=== PATIENT | male | born 1940 | race Asian ===

== ENCOUNTER 2016-12-24 12:00 | Outpatient (CLI) ==
[2016-12-24 13:24] LABS: CHOL/HDL RATIO 2.6 (4.5-6.4)
== END 2016-12-24 12:01 | disposition home or self-care (01) ==
LOC: LAB 12:00
PROVIDERS: ATTEND Nurse Practitioner Family
DX: E11.9 Type 2 diabetes mellitus without complications (principal); E75.6 Lipid storage disorder, unspecified; Z79.899 Other long term (current) drug therapy
CPT/HCPCS: 36415; 80061

== ENCOUNTER 2017-05-09 20:15 | Outpatient (CLI) ==
[2017-05-09 20:39] LABS: BASOPHILS % (AUTO) 0.4 % (0.0-3.0); EOSINOPHILS # (AUTO) 0.1 K/ul (0.0-0.7); EOSINOPHILS % (AUTO) 0.6 % (0.0-7.0); HEMATOCRIT 43.9 % (42.0-52.0); HEMOGLOBIN 15.3 g/dl (14.0-18.0); IMMATURE GRANULOCYTE % (AUTO) 0.5 % (0.0-5.0); LYMPHOCYTES # (AUTO) 1.2 K/uL (0.60-3.4); LYMPHOCYTES % (AUTO) 11.5 (10.0-50.0); MEAN CORPUSCULAR HEMOGLOBIN 30.1 pg (27.0-31.0); MEAN CORPUSCULAR HGB CONC 34.9 (31.8-35.4); MEAN CORPUSCULAR VOLUME 86.4 fl (80.0-94.0); MONOCYTES # (AUTO) 0.6 K/uL (0.4-2.0); MONOCYTES % (AUTO) 5.7 (0-10); NEUTROPHILS # (AUTO) 8.3 K/ul (2.0-6.9); NEUTROPHILS % (AUTO) 81.3; PLATELET COUNT 180 10^3/uL (140-440); RED BLOOD COUNT 5.08 10^6/ul (4.70-6.10); WHITE BLOOD COUNT 10.18 K/ul (4.2-10.2)
[2017-05-09 20:44] LABS: ADD URINE MICROSCOPIC YES; BILIRUBIN,URINE Negative (NEGATIVE); KETONES,URINE Negative (NEGATIVE); LEUKOCYTE ESTERASE ,URINE Negative (NEGATIVE); NITRITE,URINE Negative (NEGATIVE); PH,URINE 7.5 (5-9); PROTEIN,URINE Negative (NEGATIVE); URINE, BLOOD Trace-intact (NEGATIVE)
[2017-05-09 20:55] LABS: ALBUMIN/GLOBULIN RATIO 1.29; ANION GAP 16.2; BILIRUBIN,TOTAL 0.76 mg/dL (0.00-1.20); BUN/CREATININE RATIO 13.63; CALCIUM 8.8 mg/dL (8.2-10.2); CREATININE 1.1 mg/dL (0.60-1.10); POTASSIUM 4.2 mmol/L (3.5-5.1); TOTAL PROTEIN 7.1 g/dL (5.8-8.1)
--- NOTE | 2017-05-09 20:59 | CT ---
EXAM: CT chest without contrast TECHNIQUE: Helical axial CT of the chest was performed without contrast with coronal and sagittal re constructions. COMPARISON: Chest CT from 09/12/2016 HISTORY: Cough and weakness and fatigue FINDINGS: Lung parenchyma: There is increased bibasilar atelectasis compared to previous examination. There is no effusion or infiltrate or failure or nodule or mass. Mediastinum: No pathologic hilar or mediastinal adenopathy. There is fairly advanced coronary calcif ication. There is no pericardial effusion. There is a moderate degree of calcific atherosclerosis of the aorta. There is no aortic aneurysm. Upper Abdomen: There is a gallstone in the neck of the gallbladder with some probable sludge within the gallbladder which does not appear to be inflamed. Osseous structures: Nothing acute. Surrounding soft tissues are normal. No supraclavicular or axillary adenopathy. IMPRESSION: 1. There is increased bibasilar atelectasis compared to prior. 2. Advanced calcific atherosclerosis as above. 3. Gallstone in the neck of the gallbladder with some probable sludge. If clinically indicated ult rasound would be helpful to better characterize this.
== END 2017-05-09 20:16 | disposition home or self-care (01) ==
LOC: LAB 20:15
PROVIDERS: ATTEND Internal Medicine
DX: R05 Cough (principal); R50.9 Fever, unspecified; R53.1 Weakness; R53.83 Other fatigue; R00.0 Tachycardia, unspecified
CPT/HCPCS: 36415; 80053; 81001; 84145; 85025; 87040; 87086; 93005; 93010

== ENCOUNTER 2017-05-11 15:40 | Inpatient (IN) ==
[2017-05-11] MEDS ORDERED: NITROSTAT SL PRN (15:50)
[2017-05-11] MEDS ORDERED: MORPHINE 4 MG/ML SYRINGE IVP PRN (15:50)
[2017-05-11] MEDS ORDERED: ATROPINE SULFATE PFS IVP PRN (15:50)
[2017-05-11] MEDS ORDERED: VISTARIL INJ IM PRN (15:50)
[2017-05-11] MEDS ORDERED: TYLENOL PO PRN (15:50)
[2017-05-11 16:10] LABS: ABG PCO2 33.5 mmHg (35-45); ABG PH 7.396 (7.35-7.45)
[2017-05-11 16:11] LABS: ABG BASE EXCESS -4 (-2.0-2.0); ABG HCO3 20.5 (22.0-26.0); ABG TCO2 22 (22.0-28.0)
[2017-05-11 16:27] VITALS: BMI 27.7
[2017-05-11] MEDS: DEXTROSE 5%-1/2NS IV SOLUTION 1,000 ML IV SCH (16:29)
[2017-05-11] MEDS: SOLU-CORTEF 250 MG IVP SCH ×2 (16:30→21:03)
[2017-05-11 16:57] LABS: HEMATOCRIT 40.7 % (42.0-52.0); MEAN CORPUSCULAR HEMOGLOBIN 29.9 pg (27.0-31.0); MEAN CORPUSCULAR HGB CONC 34.4 (31.8-35.4); MEAN CORPUSCULAR VOLUME 86.8 fl (80.0-94.0); PLATELET COUNT 132 10^3/uL (140-440); RED BLOOD COUNT 4.69 10^6/ul (4.70-6.10); WHITE BLOOD COUNT 11.36 K/ul (4.2-10.2)
[2017-05-11] MEDS: ZITHROMAX 500 MG in SODIUM CHLORIDE 250 ML IV SCH (17:01)
[2017-05-11 17:02] LABS: ANISOCYTOSIS NOT PRESENT (NOT PRESENT)
[2017-05-11] MEDS: XOPENEX 1.25 MG NEB SCH ×2 (17:07→23:30)
[2017-05-11] MEDS: PULMICORT 0.5 MG/2 ML NEB SCH (17:12)
--- NOTE | 2017-05-11 17:30 | DI ---
EXAM: Two-view chest. HISTORY: Cough and weakness. COMPARISON: 09/14/2012. CT dated 05/09/2017. FINDINGS: PA and lateral views of the chest. The lungs are hyperexpanded. There is no lobar con solidation or effusion. The heart size and pulmonary vasculature are within normal limits. There a re no suspicious pulmonary nodules. The pulmonary interstitium is normal. The aorta is tortuous and calcified. The osseous structures show mild degenerative changes consistent with age. IMPRESSION: No acute pulmonary disease. Mild hyperexpansion of the chest consistent with chronic obstructive pulmonary disease.
[2017-05-11 17:31] LABS: ALBUMIN 3.5 g/dL (3.4-5.0); ALBUMIN/GLOBULIN RATIO 0.97; ANION GAP 16.9; BILIRUBIN,TOTAL 1.6 mg/dL (0.00-1.20); BUN/CREATININE RATIO 12.19; CREATININE 1.23 mg/dL (0.60-1.10); POTASSIUM 3.9 mmol/L (3.5-5.1); TOTAL PROTEIN 7.1 g/dL (5.8-8.1); TROPONIN I 0.017 ng/ml (0.0000-0.4000)
[2017-05-11] MEDS: TUSSIONEX PO SCH ×3 (17:44→21:10)
[2017-05-11 17:51] LABS: CREATINE KINASE MB 1.4 ng/ml (0.0-3.6)
[2017-05-11 18:58] LABS: BILIRUBIN,URINE Negative (NEGATIVE); KETONES,URINE 3+ (NEGATIVE); LEUKOCYTE ESTERASE ,URINE Negative (NEGATIVE); NITRITE,URINE Negative (NEGATIVE); PROTEIN,URINE 1+ (NEGATIVE); URINE, BLOOD 1+ (NEGATIVE)
[2017-05-11 19:05] LABS: ADD URINE MICROSCOPIC YES
[2017-05-11] MEDS: DOXY-100 100 MG in SODIUM CHLORIDE 250 ML IV SCH (19:23)
[2017-05-11] MEDS ORDERED: GLUCOPHAGE ONE (20:59)
[2017-05-11] MEDS ORDERED: EMPAGLIFLOZIN PO SCH (21:00)
[2017-05-11] MEDS ORDERED: GLUCOPHAGE PO SCH (21:00)
[2017-05-11] MEDS ORDERED: METFORMIN HCL PO SCH (21:00)
[2017-05-11] MEDS ORDERED: [UNRECOGNIZED DRUG - OTHER] PO SCH (21:00)
[2017-05-11] MEDS: AMBIEN PO SCH (21:08)
[2017-05-11] MEDS: TAMIFLU PO SCH (21:08)
[2017-05-11] MEDS: HUMULIN R SUBCUT PRN (21:08)
[2017-05-12 01:17] LABS: CREATINE KINASE 214 U/L; MYOGLOBIN 110 ng/ml
[2017-05-12 01:30] LABS: CREATINE KINASE MB 1.4 ng/ml (0.0-3.6)
[2017-05-12] MEDS: XOPENEX 1.25 MG NEB SCH ×4 (05:30→23:19)
[2017-05-12] MEDS: PULMICORT 0.5 MG/2 ML NEB SCH ×2 (05:30→18:11)
[2017-05-12] MEDS: DEXTROSE 5%-1/2NS IV SOLUTION 1,000 ML IV SCH ×2 (05:43→08:49)
[2017-05-12] MEDS: SOLU-CORTEF 250 MG IVP SCH ×3 (05:43→20:31)
[2017-05-12] MEDS: HUMULIN R SUBCUT PRN ×4 (06:44→20:54)
[2017-05-12] MEDS ORDERED: GLUCOPHAGE PO SCH (08:00)
[2017-05-12] MEDS: TAMIFLU PO SCH ×2 (08:18→20:28)
[2017-05-12] MEDS: DOXY-100 100 MG in SODIUM CHLORIDE 250 ML IV SCH ×3 (08:18→20:31)
[2017-05-12] MEDS: ASPIRIN EC PO SCH (08:18)
[2017-05-12] MEDS: METFORMIN HCL PO SCH ×3 (08:19→20:29)
[2017-05-12] MEDS: TUSSIONEX PO SCH ×3 (08:19→20:30)
[2017-05-12] MEDS: EMPAGLIFLOZIN PO SCH ×3 (08:19→20:29)
[2017-05-12] MEDS: [UNRECOGNIZED DRUG - OTHER] PO SCH ×3 (08:19→20:29)
[2017-05-12] MEDS ORDERED: DEXTROSE 5%-1/2NS IV SOLUTION 1,000 ML IV SCH (08:29)
[2017-05-12 09:21] LABS: BASOPHILS % (AUTO) 0.2 % (0.0-3.0); HEMATOCRIT 38.7 % (42.0-52.0); HEMOGLOBIN 13.1 g/dl (14.0-18.0); IMMATURE GRANULOCYTE % (AUTO) 0.5 % (0.0-5.0); LYMPHOCYTES # (AUTO) 0.4 K/uL (0.60-3.4); LYMPHOCYTES % (AUTO) 3.6 (10.0-50.0); MEAN CORPUSCULAR HEMOGLOBIN 29.8 pg (27.0-31.0); MEAN CORPUSCULAR HGB CONC 33.9 (31.8-35.4); MONOCYTES # (AUTO) 0.2 K/uL (0.4-2.0); MONOCYTES % (AUTO) 2.5 (0-10); NEUTROPHILS % (AUTO) 93.2; PLATELET COUNT 129 10^3/uL (140-440); WHITE BLOOD COUNT 9.63 K/ul (4.2-10.2)
[2017-05-12 09:55] LABS: ALBUMIN/GLOBULIN RATIO 0.86; ANION GAP 18.3; BILIRUBIN,TOTAL 1.07 mg/dL (0.00-1.20); BUN/CREATININE RATIO 15.2; CALCIUM 8.6 mg/dL (8.2-10.2); CREATININE 1.25 mg/dL (0.60-1.10); POTASSIUM 4.3 mmol/L (3.5-5.1); TOTAL PROTEIN 6.5 g/dL (5.8-8.1)
[2017-05-12] MEDS: ZITHROMAX 500 MG in SODIUM CHLORIDE 250 ML IV SCH (10:10)
--- NOTE | 2017-05-12 10:10 | HP ---
DATE OF SERVICE: 05/11/17 HISTORY OF PRESENT ILLNESS: This is a 77-year-old [place] Citizen male, seen in the office with complaint of having cough, which was productive of yellowish mucus for the past three days. The patient did not have any feeling of having fever or chills but was feeling chilly with weakness and fatigue. The patient had several tests done on like CT scan of chest which showed bibasilar atelectasis, advanced calcific atherosclerosis, possibility of gallstone or sludge in the neck of the gallbladder. The patient's main problem at the time was cough with mild shortness of breath. The patient on that day had CBC with differential done which showed hemoglobin of 15 with hematocrit 43, WBC was 10,000. The patient's creatinine was 1.1 with BUN 15. UA was practically negative except for 2+ glucose. Blood glucose at that time was reported as 173. The patient's condition from 05/09/17 continued to worsen to some extent. The patient has history of similar type of upper respiratory and lower respiratory tract symptoms several years ago. REVIEW OF SYSTEMS: CONSTITUTIONAL: Fatigue, weakness. No night sweats. No fever or chills. HEENT: Eyes: No visual changes. No eye pain. No eye discharge. ENT: Nasal congestion. No epistaxis. No sinus pain. No sore throat. No odynophagia. No ear pain. No congestion. RESPIRATORY: Cough, congestion with yellowish mucus production. Shortness of breath with exertion. No hemoptysis. CARDIOVASCULAR: Chest pain with cough-like tightness type of feeling. No angina symptoms. No CHF symptoms. No palpitations. No PND, no orthopnea. GASTROINTESTINAL: Appetite has not been good for past 24 hours. No abdominal pain. No nausea or vomiting. No diarrhea or constipation. No hematemesis. No hematochezia. GENITOURINARY: No urgency. No frequency. No dysuria. No hematuria. No obstructive symptoms. No discharge. No pain. No significant abnormal bleeding. MUSCULOSKELETAL: Generalized aches with weakness. NEUROLOGICAL: No headache. No neck pain. No syncope. No seizures. No dizziness. PSYCHIATRIC: Not anxious. No depression. No suicidal thoughts. No homicidal thoughts. SKIN: No rash. No lesions. No wounds. ENDOCRINE: No unexplained weight loss. No weight gain. HEMATOLOGIC/LYMPHATIC: No anemia. No purpura. No petechiae. No prolonged or excessive bleeding. No palpable lymph nodes. PERSONAL/FAMILY/SOCIAL HISTORY: The patient is , lives with the . Nonsmoker. No alcohol abuse. 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 Family history: Father had a brain tumor. PAST MEDICAL/SURGICAL PROBLEMS: 1. Diabetes mellitus Type 2 2. Dyslipidemia 3. Colonoscopy, 2013, Dr. Torres MEDICATIONS: (HOME) 1. Metformin and Jardiance combination 12 and 500 mg twice a day. ALLERGIES: NKDA PHYSICAL EXAMINATION: GENERAL: The patient is oriented to time, place and person. VITAL SIGNS: Temperature 98.6, pulse 110 per min, respiratory rate 20 per minute , BP 130/70. Height 5'6". Weight 171 lb, 15.369 oz. BMI 27. HEENT: Head normocephalic, atraumatic. Eyes: Extraocular muscles are intact. Pupils are equal, round and reactive to light and accommodation. Ears: No lesions. Nose appeared normal. Throat: No exudate or erythema. Skin dry. Mucous membranes dry. Pallor positive. NECK: Supple. No JVP, no carotid bruit. No lymphadenopathy or thyromegaly. LUNGS: Decreased breath sounds with few faint wheezes with dry crepitations, both lower lobes with diminished air entry. Percussion note normal. Chest symmetrical. HEART: S1, S2, no S3. Tachycardia, murmur. No cyanosis or clubbing. No ascites. Pulses: Dorsalis pedis and posterior tibial pulses +1 to +2 bilaterally. ABDOMEN: Soft. Nontender. Bowel sounds active. No CVA tenderness. No mass felt. EXTREMITIES: No pedal edema. Full range of motion of all extremities, equal. NEUROLOGIC: No focal deficit. Cranial nerves II through XII are grossly intact. No headache, no double vision or headache. SKIN: Not dry. Intact. Turgor - normal. LYMPHATIC: No palpable lymph nodes/no lymphedema. MUSCULOSKELETAL: Normal joints with no swelling. Muscle tone is normal. LABS/RADIOLOGY/ BLOOD GASES 05/11/17 ABG p02 51, pc02 33, pH 7.39 with 86% saturation on room air. Hemoglobin 14, hematocrit 40, WBC 11,300, normal differential, platelets slightly lower 132,000. Chest x-ray - COPD. Cardiac markers negative. Blood cultures after two days negative. Creatinine 1.2, BUN 15, total bilirubin 1.6, SGOT 52, D. dimer 648, procalcitonin 1.1 (normal is 0.5). Sputum cultures normal celina. ASSESSMENT: 1. ACUTE PNEUMONITIS, BILATERAL 2. RHINITIS/LARYNGITIS 3. HISTORY OF DIABETES MELLITUS 4. DYSLIPIDEMIA PLAN: 1. Admit Regular to [facility]. 2. Routine telemetry orders, which will include serial cardiac markers. 3. CBC with CMP with chest x-ray and EKG. EKG shows sinus tachycardia with low voltage indicating chronic lung disease. 4. IV Doxycycline 100 mg q.a.m. 5. Zithromax 500 mg q.a.m. for 3 days. 6. Sputum for culture and sensitivity and gram stain. 7. Blood cultures times two. 8. Xopenex q.i.d. daily. 9. Pulmicort twice a day. 10. Solu-Cortef 125 mg q.8hr. 11. ABG. 12. The patient is on IV fluids, 1000 cc D5 1/2 NS q.8hr. 13. T4, TSH. 14. Accu-Cheks with coverage. 15. Ehrlichia/Lyme screening. 16. Tussionex one teaspoon p.o. b.i.d. for cough. 17. [place] Spotted Fever IgM 18. Mycoplasma/Chlamydia titers/Rickettsia titer 19. Influenza A/B test. Note: The patient's oximetry in the office was 90%. The patient's ABG in the hospital showed acute respiratory failure with p02 of 51, pc02 of 32 with normal pH and 86% oxygen saturation when it was done in the patient's room. CONDITION: Stable TIME SPENT: More than 70 minutes. MTDD
[2017-05-12] MEDS ORDERED: TUSSIONEX PO SCH (13:00)
[2017-05-12] MEDS ORDERED: POTASSIUM CHLORIDE 20 MEQ VIAL-ADDITIVE ONLY IV ONE ×2 (18:37→18:40)
[2017-05-12] MEDS: POTASSIUM CHLORIDE 10 MEQ VIAL-ADDITIVE ONLY 20 MEQ in SODIUM CHLORIDE 1,000 ML IV SCH (18:47)
[2017-05-12] MEDS: AMBIEN PO SCH (20:27)
[2017-05-12] MEDS: ZINC-220 PO SCH (20:28)
[2017-05-13] MEDS: XOPENEX 1.25 MG NEB SCH ×4 (05:38→23:24)
[2017-05-13] MEDS: PULMICORT 0.5 MG/2 ML NEB SCH ×2 (05:38→18:04)
[2017-05-13] MEDS: SOLU-CORTEF 250 MG IVP SCH ×3 (05:49→20:08)
[2017-05-13] MEDS: HUMULIN R SUBCUT PRN ×4 (05:51→20:08)
[2017-05-13 07:18] LABS: BASOPHILS % (AUTO) 0.1 % (0.0-3.0); HEMATOCRIT 36.3 % (42.0-52.0); HEMOGLOBIN 12.3 g/dl (14.0-18.0); IMMATURE GRANULOCYTE % (AUTO) 0.9 % (0.0-5.0); LYMPHOCYTES # (AUTO) 0.7 K/uL (0.60-3.4); LYMPHOCYTES % (AUTO) 7.1 (10.0-50.0); MEAN CORPUSCULAR HEMOGLOBIN 30.1 pg (27.0-31.0); MEAN CORPUSCULAR HGB CONC 33.9 (31.8-35.4); MEAN CORPUSCULAR VOLUME 88.8 fl (80.0-94.0); MONOCYTES # (AUTO) 0.3 K/uL (0.4-2.0); MONOCYTES % (AUTO) 3.5 (0-10); NEUTROPHILS # (AUTO) 8.3 K/ul (2.0-6.9); NEUTROPHILS % (AUTO) 88.4; PLATELET COUNT 144 10^3/uL (140-440); RED BLOOD COUNT 4.09 10^6/ul (4.70-6.10); WHITE BLOOD COUNT 9.38 K/ul (4.2-10.2)
[2017-05-13] MEDS ORDERED: POTASSIUM CHLORIDE 20 MEQ VIAL-ADDITIVE ONLY 20 MEQ in SODIUM CHLORIDE 1,000 ML IV SCH (07:30)
[2017-05-13 07:38] LABS: ALBUMIN/GLOBULIN RATIO 0.97; ANION GAP 14.2; BILIRUBIN,TOTAL 0.69 mg/dL (0.00-1.20); BUN/CREATININE RATIO 22.22; CALCIUM 8.4 mg/dL (8.2-10.2); CREATININE 1.17 mg/dL (0.60-1.10); POTASSIUM 4.2 mmol/L (3.5-5.1); TOTAL PROTEIN 6.1 g/dL (5.8-8.1)
[2017-05-13] MEDS: POTASSIUM CHLORIDE 10 MEQ VIAL-ADDITIVE ONLY 20 MEQ in SODIUM CHLORIDE 1,000 ML IV SCH (07:51)
[2017-05-13] MEDS: [UNRECOGNIZED DRUG - OTHER] PO SCH ×2 (08:53→20:22)
[2017-05-13] MEDS: TUSSIONEX PO SCH ×2 (08:53→20:08)
[2017-05-13] MEDS: TAMIFLU PO SCH ×2 (08:53→20:22)
[2017-05-13] MEDS: EMPAGLIFLOZIN PO SCH ×2 (08:53→20:22)
[2017-05-13] MEDS: ZINC-220 PO SCH ×2 (08:53→20:07)
[2017-05-13] MEDS: METFORMIN HCL PO SCH ×2 (08:53→20:22)
[2017-05-13] MEDS: ASPIRIN EC PO SCH (08:53)
--- NOTE | 2017-05-13 09:11 | PN ---
DATE OF SERVICE: 05/12/17 SUBJECTIVE: The patient is a 77 year old [place] male hospitalized with bilateral acute pneumonitis. The patient says that he is feeling better, still coughing. The appetite has improved. REVIEW OF SYSTEMS: CONSTITUTIONAL: No night sweats. No malaise, lethargy. No fever or chills. Fatigue and weakness. HEENT: Eyes: No visual changes. No eye pain. No eye discharge. ENT: No runny nose. No epistaxis. No sinus pain. No sore throat. No odynophagia. No congestion. RESPIRATORY: Cough mostly dry, no congestion. No hemoptysis. No shortness of breath. CARDIOVASCULAR: No angina symptoms. No CHF symptoms. No atypical chest pain for CAD. No palpitations. No orthopnea. No PND. GASTROINTESTINAL: No abdominal pain. No nausea or vomiting. No diarrhea or constipation. No hematemesis. No hematochezia. Appetite has improved. GENITOURINARY: No urgency. No frequency. No dysuria. No hematuria. No obstructive symptoms. No discharge. No pain. No significant abnormal bleeding. MUSCULOSKELETAL: No musculoskeletal pain; no joint swelling. NEUROLOGICAL: No headache. No neck pain. No syncope. No seizures. No dizziness. PSYCHIATRIC: Not anxious. No depression. No suicidal thoughts. No homicidal thoughts. SKIN: No rash. No lesions. No wounds. ENDOCRINE: No unexplained weight loss. No weight gain. HEMATOLOGIC/LYMPHATIC: No anemia. No purpura. No petechiae. No prolonged or excessive bleeding. No palpable lymph nodes. PHYSICAL EXAMINATION: GENERAL: The patient is oriented to time, place and person. VITAL SIGNS: Temperature 97, pulse 80, respiratory rate 17, blood pressure 109/ 60 and pulse ox 98% with 2 liters. HEENT: Head normocephalic, atraumatic. Eyes: Extraocular muscles are intact. Pupils are equal, round and reactive to light and accommodation. Ears: No lesions. Nose appeared normal. Throat: No exudate or erythema. NECK: Supple. No JVD, no carotid bruit. No lymphadenopathy or thyromegaly. LUNGS: Mild wheeze but good air entry better than yesterday. Percussion note normal. Chest symmetrical. HEART: S1, S2, no S3. No murmurs. No cyanosis or clubbing. No ascites. Pulses: Dorsalis pedis and posterior tibial pulses +1 to +2 both sides. ABDOMEN: Soft. Nontender. Bowel sounds active. No CVA tenderness. No mass felt. EXTREMITIES: No edema. Full range of motion of all extremities, equal. NEUROLOGIC: No focal deficit. Cranial nerves II through XII are grossly intact. No headache, no double vision or headache. SKIN: Not dry. Intact. Turgor - looks better. LYMPHATIC: No palpable lymph nodes/no lymphedema. MUSCULOSKELETAL: Normal joints with no swelling. Muscle tone is normal. LABS: hgb 14, hct 40, WBC 11,300 normal differential, creatinine 1.2, BUN 15, potassium 3.9, glucose 205. ASSESSMENT: 1. Acute pneumonitis with acute respiratory failure seems to be improving clinically 2. Chronic lung disease 3. Diabetes Mellitus PLAN: 1. Continue Doxycycline 2. Continue Zithromax 3. Continue Steroids 4. Continue NEBS treatment 5. Continue IV fluids at a slowly rate CONDITION: Improving TIME SPENT: More than 30 minutes. Plan and coordination of the patient's care discussed in the presence of nurse. KENNETH
--- NOTE | 2017-05-13 09:12 | PCM.PROG ---
Attending Provider: ATTENDING PROVIDER: Dr. PADMINI RODRIGUES DATE OF SERVICE: 05/13/17 SUBJECTIVE: This 77 year old M was hospitalized 05/11/17 admitted with bilateral pneumonitis. The patient's condition seems to have improved clinically. The patient is afebrile. He is still coughing with mucus but is clearing up. No PND, no orthopnea. Appetite improved. REVIEW OF SYSTEMS: CONSTITUTIONAL: No night sweats. No fatigue, malaise, lethargy. No fever or chills. HEENT: Eyes: No visual changes. No eye pain. No eye discharge. ENT: No runny nose. No epistaxis. No sinus pain. No odynophagia. No congestion. RESPIRATORY: Cough and congestion. No hemoptysis. No shortness of breath. CARDIOVASCULAR: No angina symptoms. No CHF symptoms. No atypical chest pain for CAD. No palpitations. No orthopnea.. GASTROINTESTINAL: Appetite is better. No abdominal pain. No nausea or vomiting. No diarrhea or constipation. No hematemesis. No hematochezia. GENITOURINARY: No urgency. No frequency. No dysuria. No hematuria. No obstructive symptoms. No discharge. No pain. No significant abnormal bleeding. MUSCULOSKELETAL: No musculoskeletal pain; no joint swelling. NEUROLOGICAL: Awake, alert, oriented to time, place and person. No headache. No neck pain. No syncope. No seizures. No dizziness. PSYCHIATRIC: Not anxious. No depression. No suicidal thoughts. No homicidal thoughts. SKIN: No rash. No lesions. No wounds. ENDOCRINE: No unexplained weight loss. No weight gain. HEMATOLOGIC/LYMPHATIC: No anemia. No purpura. No petechiae. No prolonged or excessive bleeding. No palpable lymph nodes. PHYSICAL EXAMINATION: GENERAL: The patient is awake, alert and oriented, sitting on side of bed in no distress. VITAL SIGNS: Temperature 97.0 F, Pulse 76, Respiratory Rate 20, BP 106/59, Pulse Ox 97% HEENT: Head normocephalic, atraumatic. Eyes: Extraocular muscles are intact. Pupils are equal, round and reactive to light and accommodation. Ears: No lesions. Nose appeared normal. Throat: No exudate or erythema. NECK: Supple. No JVD, no carotid bruit. No lymphadenopathy or thyromegaly. LUNGS: Mild wheeze but good air entry. Percussion note normal. Chest symmetrical. HEART: S1, S2, no S3. No murmurs. No cyanosis or clubbing. No ascites. Pulses: Dorsalis pedis and posterior tibial pulses +1 to +2 both sides. ABDOMEN: Soft. Non-tender. Bowel sounds active. No CVA tenderness. No mass felt. EXTREMITIES: No edema. Full range of motion of all extremities, equal. NEUROLOGIC: No focal deficit. Cranial nerves II through XII are grossly intact. No headache, no double vision or headache. SKIN: Not dry. Intact. Turgor-normal. LYMPHATIC: No palpable lymph nodes/no lymphedema. MUSCULOSKELETAL: Normal joints with no swelling. Muscle tone is normal. LAB REVIEW: 05/13/17 07:10 05/13/17 07:10 05/13/17 07:10: WBC 9.38, RBC 4.09 L, Hgb 12.3 L, Hct 36.3 L, MCV 88.8, MCH 30.1 , MCHC 33.9, RDW Coeff of Liza 12.5, Plt Count 144, Immature Gran % (Auto) 0.9, Neut % (Auto) 88.4, Lymph % (Auto) 7.1 L, [place] % (Auto) 3.5, Eos % (Auto) 0.0, Baso % (Auto) 0.1, Immature Gran # (Auto) 0.1, Neut # 8.3 H, Lymph # 0.7, [place] # 0.3 L, Eos # 0.0, Baso # 0.0, Sodium 139, Potassium 4.2, Chloride 105, Carbon Dioxide 24, Anion Gap 14.2, BUN 26 H, Creatinine 1.17 H, Estimated GFR (MDRD) 60.00, BUN/Creatinine Ratio 22.22, Glucose 173 H D, Hemoglobin A1c 7.1 H, Calcium 8.4, Total Bilirubin 0.69, AST 22, ALT 10 L, Alkaline Phosphatase 76, Total Protein 6.1, Albumin 3.0 L, Globulin 3.1, Albumin/Globulin Ratio 0.97 05/12/17 09:15: Procalcitonin 2.22 05/12/17 08:35: WBC 9.63, RBC 4.40 L, Hgb 13.1 L, Hct 38.7 L, MCV 88.0, MCH 29.8 , MCHC 33.9, RDW Coeff of Liza 12.2, Plt Count 129 L, Immature Gran % (Auto) 0.5 , Neut % (Auto) 93.2, Lymph % (Auto) 3.6 L, [place] % (Auto) 2.5, Eos % (Auto) 0.0 , Baso % (Auto) 0.2, Immature Gran # (Auto) 0.1, Neut # 9.0 H, Lymph # 0.4 L, [place] # 0.2 L, Eos # 0.0, Baso # 0.0, Sodium 139, Potassium 4.3, Chloride 102, Carbon Dioxide 23, Anion Gap 18.3, BUN 19 H, Creatinine 1.25 H, Estimated GFR ( MDRD) 56.00, BUN/Creatinine Ratio 15.20, Glucose 272 H D, Calcium 8.6, Total Bilirubin 1.07, AST 25 D, ALT 15, Alkaline Phosphatase 91, Total Protein 6.5, Albumin 3.0 L, Globulin 3.5, Albumin/Globulin Ratio 0.86 ASSESSMENT: 1. Acute pneumoniitis 2. Chronic lung disease 3. Diabetes mellitus Type 2 4. Chronic kidney disease PLAN: 1. Continue Solu-Cortef until tomorrow 2. IV antibiotics, steroids and nebs treatment 2. Will switch from Doxycycline to Rocephin 2 gm begin tomorrow one dose daily 3. Discontinue IV fluids - oral intake is normal 4. Procalcitonin borderline elevated for sepsis, will repeat again tomorrow Plan and coordination of the patient's care discussed in the presence of [employer] Supervisor and nurse. CONDITION: Stable SCRIBED BY: SLADE METCALF Blind Aide scribed while in presence of service performed by Dr. PADMINI RODRIGUES on 05/13/17 ([id number])
[2017-05-13] MEDS ORDERED: DOXY-100 100 MG in SODIUM CHLORIDE 250 ML IV SCH (09:30)
[2017-05-13] MEDS: DOXY-100 100 MG in SODIUM CHLORIDE 250 ML IV SCH (10:48)
[2017-05-13] MEDS: ZITHROMAX 500 MG in SODIUM CHLORIDE 250 ML IV SCH (10:51)
[2017-05-13] MEDS: ROCEPHIN 2 GM in SODIUM CHLORIDE 100 ML IV SCH (15:17)
[2017-05-13] MEDS: AMBIEN PO SCH (20:08)
[2017-05-13] MEDS: ZOSYN 3.375 GM 3.375 GM in SODIUM CHLORIDE 100 ML IV SCH (23:27)
[2017-05-13] MEDS ORDERED: SODIUM CHLORIDE 100 ML IV ONE (23:27)
[2017-05-14] MEDS: SOLU-CORTEF 250 MG IVP SCH ×4 (05:15→20:45)
[2017-05-14] MEDS: ZOSYN 3.375 GM 3.375 GM in SODIUM CHLORIDE 100 ML IV SCH ×4 (05:16→23:02)
[2017-05-14] MEDS: PULMICORT 0.5 MG/2 ML NEB SCH ×2 (05:23→17:03)
[2017-05-14] MEDS: XOPENEX 1.25 MG NEB SCH ×4 (05:24→23:04)
[2017-05-14 05:50] LABS: BASOPHILS % (AUTO) 0.1 % (0.0-3.0); HEMATOCRIT 35.8 % (42.0-52.0); HEMOGLOBIN 12.2 g/dl (14.0-18.0); IMMATURE GRANULOCYTE % (AUTO) 1.5 % (0.0-5.0); LYMPHOCYTES # (AUTO) 0.5 K/uL (0.60-3.4); LYMPHOCYTES % (AUTO) 5.8 (10.0-50.0); MEAN CORPUSCULAR HEMOGLOBIN 29.8 pg (27.0-31.0); MEAN CORPUSCULAR HGB CONC 34.1 (31.8-35.4); MEAN CORPUSCULAR VOLUME 87.3 fl (80.0-94.0); MONOCYTES # (AUTO) 0.4 K/uL (0.4-2.0); MONOCYTES % (AUTO) 4.6 (0-10); NEUTROPHILS # (AUTO) 7.2 K/ul (2.0-6.9); PLATELET COUNT 176 10^3/uL (140-440); WHITE BLOOD COUNT 8.13 K/ul (4.2-10.2)
[2017-05-14 06:19] LABS: ALBUMIN 3.1 g/dL (3.4-5.0); ALBUMIN/GLOBULIN RATIO 1.03; ANION GAP 17.6; BILIRUBIN,TOTAL 0.72 mg/dL (0.00-1.20); BUN/CREATININE RATIO 20.17; CALCIUM 8.5 mg/dL (8.2-10.2); CREATININE 1.14 mg/dL (0.60-1.10); POTASSIUM 3.6 mmol/L (3.5-5.1); TOTAL PROTEIN 6.1 g/dL (5.8-8.1)
[2017-05-14] MEDS: DEXTROSE 5%-1/2NS IV SOLUTION 1,000 ML IV SCH ×2 (09:17→17:43)
--- NOTE | 2017-05-14 10:53 | CT ---
EXAM: CT of the head with and without contrast History: Dizziness. Comparison: Head CT 09/14/2012, brain MRI 09/16 2016 Technique: Multiplanar CT images through the head were obtained with and without the administration of IV contrast Findings: The visualized paranasal sinuses and mastoid air cells are clear in general. No acute ca lvarial abnormalities. Intracranially the ventricular and cisternal spaces are normal in size, shape and configuration for a patient of this age. No dominant mass or midline shift. No hydrocephalous. No acute intracrania l hemorrhage or abnormal extraaxial fluid collections. No abnormal contrast enhancement. No change in the periventricular and subcortical white matter hypodensities. Impression: 1. No acute intracranial process. 2. No abnormal contrast enhancement. 3. Stable chronic small vessel ischemic disease.
--- NOTE | 2017-05-14 11:00 | CT ---
EXAM: CT chest with contrast HISTORY: Cough, congestion COMPARISON: None TECHNIQUE: CT chest performed with intravenous contrast. Coronal and sagittal reformatted images o btained. FINDINGS: Thyroid and thoracic inlet appear normal. Heart top normal in size. Coronary calcificat ions. Trace pericardial effusion. Aorta normal in caliber. Atherosclerosis. Small hiatal hernia. There is a stable liver cyst right lobe of liver. Gallstone in the gallbladder neck region and ad ditional gallstones and/or sludge. No mediastinal, hilar, or axillary lymphadenopathy. No pneumoth orax. New trace bilateral pleural effusions. New bibasilar atelectasis and/or infiltrate. Lower airway thickening. New bibasilar atelectasis and/or infiltrate. Mild emphysematous change. No acu te abnormalities of the bones. Diffuse idiopathic skeletal hyperostosis suggested with bridging syn desmophytes. Degenerative change in the spine. IMPRESSION: 1. New trace bilateral pleural effusions. New bibasilar atelectasis and/or pneumonia. 2. Lower airway thickening suggesting infectious/inflammatory bronchiolitis. 3. Mild emphysema . 4. Trace pericardial effusion. 4. Redemonstration of gallstone in the region of gallbladder neck with additional gallstones and/or sludge. Findings can be correlated with ultrasound as clinically indicated.
[2017-05-14] MEDS: ROCEPHIN 1 GM in SODIUM CHLORIDE 50 ML IV SCH (11:09)
[2017-05-14] MEDS: ZINC-220 PO SCH ×2 (11:09→20:45)
[2017-05-14] MEDS: ASPIRIN EC PO SCH (11:09)
[2017-05-14] MEDS: TUSSIONEX PO SCH ×2 (11:10→20:45)
[2017-05-14] MEDS: EMPAGLIFLOZIN PO SCH (11:11)
[2017-05-14] MEDS: METFORMIN HCL PO SCH (11:11)
[2017-05-14] MEDS: [UNRECOGNIZED DRUG - OTHER] PO SCH (11:11)
[2017-05-14] MEDS: HUMULIN R SUBCUT PRN ×3 (11:25→20:46)
[2017-05-14] MEDS: ROCEPHIN 2 GM in SODIUM CHLORIDE 100 ML IV SCH (12:19)
--- NOTE | 2017-05-14 13:16 | ECHO2D ---
Date of Exam: 05/14/17 Ordering Physician: PADMINI RODRIGUES Reason for Echo: ACUTE RESPIRATORY FAILURE M-Mode Normal Adult Results LV Dimensions Normal Adult Results AoV Opening excursions >1.6 >1.6 LVEDD-base- 3.5-5.8 4.6 Ao root dimensions 2.0-3.7 3.6 LVESD-base- 3.1-4.6 L. Atrium dimensions 1.9-3.8 3.6 Post. Wall thickness 0.8-1.1 1.2 IV septum (thickness) 0.7-1.2 1.2 Post. Wall excursion 0.72-1.3 NORMAL Septal motion NORMAL Systolic motion R. Ventricular cavity 1.5-2.0 NORMAL LVEF 60% 56% Paradoxical septal wall motion NORMAL 2-D : 2-D M Mode Echocardiogram was performed using apical four chamber and left parasternal long and short axis views. Mitral, tricuspid and aortic valves appear to be normal. Contractility of the left ventricle seems to be normal, so is the cavity size. Left atrial cavity size and aortic root appear to be normal. There is no pericardial effusion. There is no thrombus noted in the left ventricular or left aortic cavity. No mitral valve prolapse noted. M-MODE: MV: NORMAL AV: NORMAL TV: NORMAL PV: CHAMBER SIZE: NORMAL WALL MOTION: NORMAL PERICARDIUM: NORMAL INTERPRETATION: 1. BORDERLINE LEFT VENTRICULAR HYPERTROPHY 2. NORMAL LEFT VENTRICULAR CONTRACTILITY 3. NORMAL VALVES MTDD
[2017-05-14] MEDS: AMBIEN PO SCH (20:45)
[2017-05-14] MEDS: MUCINEX PO SCH (20:46)
[2017-05-15] MEDS: SOLU-CORTEF 250 MG IVP SCH (04:59)
[2017-05-15] MEDS: ZOSYN 3.375 GM 3.375 GM in SODIUM CHLORIDE 100 ML IV SCH ×2 (04:59→11:05)
[2017-05-15] MEDS: PULMICORT 0.5 MG/2 ML NEB SCH (05:09)
[2017-05-15] MEDS: XOPENEX 1.25 MG NEB SCH ×2 (05:10→11:14)
[2017-05-15 05:13] VITALS: BP 137/72; TEMP 97.6
[2017-05-15] MEDS: HUMULIN R SUBCUT PRN ×2 (05:24→11:18)
[2017-05-15 05:46] LABS: BASOPHILS % (AUTO) 0.3 % (0.0-3.0); HEMATOCRIT 35.2 % (42.0-52.0); IMMATURE GRANULOCYTE % (AUTO) 2.1 % (0.0-5.0); LYMPHOCYTES # (AUTO) 0.5 K/uL (0.60-3.4); MEAN CORPUSCULAR HEMOGLOBIN 29.7 pg (27.0-31.0); MEAN CORPUSCULAR HGB CONC 34.1 (31.8-35.4); MEAN CORPUSCULAR VOLUME 87.1 fl (80.0-94.0); MONOCYTES # (AUTO) 0.4 K/uL (0.4-2.0); MONOCYTES % (AUTO) 6.3 (0-10); NEUTROPHILS # (AUTO) 5.9 K/ul (2.0-6.9); NEUTROPHILS % (AUTO) 84.3; PLATELET COUNT 183 10^3/uL (140-440); RED BLOOD COUNT 4.04 10^6/ul (4.70-6.10); WHITE BLOOD COUNT 7.03 K/ul (4.2-10.2)
[2017-05-15 06:06] LABS: ALBUMIN 2.9 g/dL (3.4-5.0); ALBUMIN/GLOBULIN RATIO 1.04; ANION GAP 14.8; BILIRUBIN,TOTAL 0.85 mg/dL (0.00-1.20); BUN/CREATININE RATIO 19.81; CALCIUM 8.4 mg/dL (8.2-10.2); CREATININE 1.06 mg/dL (0.60-1.10); POTASSIUM 3.8 mmol/L (3.5-5.1); TOTAL PROTEIN 5.7 g/dL (5.8-8.1)
[2017-05-15] MEDS: ROCEPHIN 1 GM in SODIUM CHLORIDE 50 ML IV SCH (08:51)
[2017-05-15] MEDS: TUSSIONEX PO SCH (08:51)
[2017-05-15] MEDS: ZINC-220 PO SCH (08:51)
[2017-05-15] MEDS: MUCINEX PO SCH (08:52)
[2017-05-15] MEDS: ASPIRIN EC PO SCH (08:52)
--- NOTE | 2017-05-15 09:31 | PN ---
DATE OF SERVICE: 05/14/17 SUBJECTIVE: The patient is a 76 year old Armenian male hospitalized with bilateral pneumonia/bronchiolitis. The patient's condition seems to have improved steadily. He is feeling better. Appetite has been improving. REVIEW OF SYSTEMS: CONSTITUTIONAL: No night sweats. No fatigue, malaise, lethargy. No fever or chills. HEENT: Eyes: No visual changes. No eye pain. No eye discharge. ENT: No runny nose. No epistaxis. No sinus pain. No sore throat. No odynophagia. No congestion. RESPIRATORY: Cough with chad color sputum production, no congestion. No hemoptysis. No shortness of breath. CARDIOVASCULAR: No angina symptoms. No CHF symptoms. No atypical chest pain for CAD. No palpitations. No orthopnea. No PND. GASTROINTESTINAL: No abdominal pain. No nausea or vomiting. No diarrhea or constipation. No hematemesis. No hematochezia. GENITOURINARY: No urgency. No frequency. No dysuria. No hematuria. No obstructive symptoms. No discharge. No pain. No significant abnormal bleeding. MUSCULOSKELETAL: No musculoskeletal pain; no joint swelling. NEUROLOGICAL: No headache. No neck pain. No syncope. No seizures. No dizziness. PSYCHIATRIC: Not anxious. No depression. No suicidal thoughts. No homicidal thoughts. SKIN: No rash. No lesions. No wounds. ENDOCRINE: No unexplained weight loss. No weight gain. HEMATOLOGIC/LYMPHATIC: No anemia. No purpura. No petechiae. No prolonged or excessive bleeding. No palpable lymph nodes. PHYSICAL EXAMINATION: GENERAL: The patient is oriented to time, place and person. VITAL SIGNS: Temperature 98.6, pulse 80, respiratory rate 15, blood pressure 130/70 and pulse ox 94% on room air. HEENT: Head normocephalic, atraumatic. Eyes: Extraocular muscles are intact. Pupils are equal, round and reactive to light and accommodation. Ears: No lesions. Nose appeared normal. Throat: No exudate or erythema. NECK: Supple. No JVD, no carotid bruit. No lymphadenopathy or thyromegaly. LUNGS: Mild wheeze bilaterally with good air entry. Clear to auscultation. Percussion note normal. Chest symmetrical. HEART: S1, S2, no S3. No murmurs. No cyanosis or clubbing. No ascites. Pulses: Dorsalis pedis and posterior tibial pulses +1 to +2 both sides. ABDOMEN: Soft. Nontender. Bowel sounds active. No CVA tenderness. No mass felt. EXTREMITIES: No edema. Full range of motion of all extremities, equal. NEUROLOGIC: No focal deficit. Cranial nerves II through XII are grossly intact. No headache, no double vision or headache. SKIN: Not dry. Intact. Turgor - normal. LYMPHATIC: No palpable lymph nodes/no lymphedema. MUSCULOSKELETAL: Normal joints with no swelling. Muscle tone is normal. LABS: Echocardiogram done which shows borderline LVH and normal LV contractility, no effusion and normal valves. ASSESSMENT: 1. Acute pneumonia/bronchiolitis with Laryngitis 2. Diabetes Mellitus 3. Chronic lung disease PLAN: 1. Continue antibiotics which were changes last night to Zosyn and Rocephin 2. Doxycycline was discontinued. The patient had already gotten 3 doses of Zithromax 500mg on first initial 2-3 days. 3. Continue NEBS treatment with Steroids, cut down the dose of steroids. 4. Advised to be up and about. CONDITION: Stable. TIME SPENT: More than 30 minutes. Plan and coordination of the patient's care discussed in the presence of nurse. KENNETH
--- NOTE | 2017-05-15 12:13 | CM.DICTOOL ---
ADMISSION: 05/11/17 15:40 DISCHARGE: May 15, 2017 DATE OF SERVICE: 05/15/17 FINAL DIAGNOSIS Acute pneumonia, Klebsiella Oxytoca Bronchiolitis with laryngitis Chronic lung disease Diabetes Mellitus, type 2 Dyslipidemia LAST VITALS Temp Pulse Resp BP Pulse Ox 97.6 F 65 18 137/72 97 05/15/17 05:12 05/15/17 05:12 05/15/17 08:00 05/15/17 05:12 05/15/17 05:12 ACTIVE HOME MEDICATIONS Non-Formulary Medication (Empagliflozin/Metformin Hcl [Synjardy 12.5-500 Mg Tablet]) 1 each PO BID [facility] Last Admin: 05/14/17 11:11 Dose: Not Given Zinc Sulfate (Zinc-220) 220 mg PO BID [facility] Last Admin: 05/15/17 08:51 Dose: 220 mg ALLERGIES No Known Allergies Allergy (Unverified 05/01/15 08:19) NEW PRESCRIPTIONS: Levaquin 750 mg daily for 7 days Prednisone 20 mg daily for 5 days, then 10 mg daily for 5 days Tussionex 1 tsp. at bedtime daily for 10 days Mucinex 1200 mg bid (over the counter) SMOKING: Not Applicable DISEASE SPECIFIC EDUCATION: Medications Outpatient treatment Activity Nutrition Appointment LAB REVIEW: 05/15/17 05:20 05/15/17 05:20 05/15/17 05:20: WBC 7.03, RBC 4.04 L, Hgb 12.0 L, Hct 35.2 L, MCV 87.1, MCH 29.7 , MCHC 34.1, RDW Coeff of Liza 12.4, Plt Count 183, Immature Gran % (Auto) 2.1, Neut % (Auto) 84.3, Lymph % (Auto) 7.0 L, [place] % (Auto) 6.3, Eos % (Auto) 0.0, Baso % (Auto) 0.3, Immature Gran # (Auto) 0.2, Neut # 5.9, Lymph # 0.5 L, [place] # 0.4, Eos # 0.0, Baso # 0.0, Sodium 142, Potassium 3.8, Chloride 103, Carbon Dioxide 28, Anion Gap 14.8, BUN 21 H, Creatinine 1.06, Estimated GFR (MDRD) 67.00, BUN/Creatinine Ratio 19.81, Glucose 160 H, Calcium 8.4, Total Bilirubin 0.85, AST 20, ALT 11 L, Alkaline Phosphatase 68, Total Protein 5.7 L, Albumin 2.9 L, Globulin 2.8, Albumin/Globulin Ratio 1.04 05/11/17 16:30: Chlamydia species IgM < 0.8, Influenza Type A Ab Negative, Influenza Type B Ab 1:32 H PLAN: Discharge home Diet: As tolerated, liquids encouraged Activity: Gradually resume as tolerated. Allow for frequent rest periods. No work until released by Dr. Joseph An appointment is scheduled with Dr. Joseph on May 19 at 3:45 pm Outpatient Rocephin 1 gram IV is scheduled for May 16 and at [facility] No changes in home medication have been made. You may resume Synjardy tomorrow morning. Mr. Aranda is alert and oriented x 3. He is ambulatory in the room and hallways without use of assistive device. He is independent with ADL's. Meal intakes have improved with intakes of 75-100% during his hospitalization. He will come for outpatient IV antibiotic of Rocephin on May 16 and . Skin is intact and free of open wounds, sores or rashes. Oleksandr Joseph MD
[2017-05-15] MEDS ORDERED: SOLU-CORTEF 100 MG IVP SCH (13:00)
[2017-05-15 13:20] LABS: IGG P18 AB Present (.); IGG P23 AB Absent (.); IGG P28 AB Absent (.); IGG P30 AB Absent (.); IGG P39 AB Absent (.); IGG P41 AB Absent (.); IGG P45 AB Present (.); IGG P58 AB Absent (.); IGG P66 AB Present (.); IGG P93 AB Absent (.); IGM P39 AB Absent (.); IGM P41 AB Absent (.); LYME IGG WB INTERP Negative (.); LYME IGM WB INTERP Negative (.)
--- NOTE | 2017-05-18 10:38 | PN ---
DATE OF SERVICE: 05/15/17 - DISCHARGE NOTE SUBJECTIVE: This 77-year-old male was hospitalized with bilateral acute pneumonitis and bronchiolitis, Klebsiella. The patient's condition has steadily improved with Zithromax, Rocephin combination. The patient's Klebsiella is sensitive to a lot of antibiotics. The patient is breathing better, feeling better. REVIEW OF SYSTEMS: CONSTITUTIONAL: Strength has improved. No night sweats. No fatigue, malaise, lethargy. No fever or chills. HEENT: Eyes: No visual changes. No eye pain. No eye discharge. ENT: No runny nose. No epistaxis. No sinus pain. No sore throat. No odynophagia. No congestion. RESPIRATORY: Coughing is much less. No hemoptysis. No shortness of breath. CARDIOVASCULAR: No angina symptoms. No CHF symptoms. No atypical chest pain for CAD. No palpitations. No orthopnea. GASTROINTESTINAL: Appetite is improved. No abdominal pain. No nausea or vomiting. No diarrhea or constipation. No hematemesis. No hematochezia. GENITOURINARY: No urgency. No frequency. No dysuria. No hematuria. No obstructive symptoms. No discharge. No pain. No significant abnormal bleeding. MUSCULOSKELETAL: No musculoskeletal pain; no joint swelling. NEUROLOGICAL: No headache. No neck pain. No syncope. No seizures. No dizziness. PSYCHIATRIC: Not anxious. No depression. No suicidal thoughts. No homicidal thoughts. SKIN: No rash. No lesions. No wounds. ENDOCRINE: No unexplained weight loss. No weight gain. HEMATOLOGIC/LYMPHATIC: No anemia. No purpura. No petechiae. No prolonged or excessive bleeding. No palpable lymph nodes. PHYSICAL EXAMINATION: GENERAL: The patient is oriented to time, place and person. VITAL SIGNS: Temperature 97.6, pulse 65, respiratory rate 20, BP 137/72, pulse ox 97%. HEENT: Head normocephalic, atraumatic. Eyes: Extraocular muscles are intact. Pupils are equal, round and reactive to light and accommodation. Ears: No lesions. Nose appeared normal. Throat: No exudate or erythema. NECK: Supple. No JVD, no carotid bruit. No lymphadenopathy or thyromegaly. LUNGS: Decreased breath sounds but clear to auscultation. Percussion note normal. Chest symmetrical. HEART: S1, S2, no S3. No murmurs. No cyanosis or clubbing. No ascites. Pulses: Dorsalis pedis and posterior tibial pulses +1 to +2 both sides. ABDOMEN: Soft. Nontender. Bowel sounds active. No CVA tenderness. No mass felt. EXTREMITIES: No edema. Full range of motion of all extremities, equal. NEUROLOGIC: No focal deficit. Cranial nerves II through XII are grossly intact. No headache, no double vision or headache. SKIN: Not dry. Intact. Turgor - normal. LYMPHATIC: No palpable lymph nodes/no lymphedema. MUSCULOSKELETAL: Normal joints with no swelling. Muscle tone is normal. LABS: Hemoglobin 12, hematocrit 35, WBC 7,000, normal differential. Creatinine 1, BUN 21, potassium 3.8. T4, TSH normal. ASSESSMENT: 1. Acute pneumonitis/bronchiolitis, Klebsiella resolving clinically. 2. Chronic lung disease. 3. Diabetes mellitus. 4. Hypertension. PLAN: 1. Discharge home. 2. Levaquin and Rocephin will be used along with Mucinex and steroids. 3. All the medications explained to the patient. 4. No work until released. 5. Rest. CONDITION: Stable. TIME SPENT: More than 30 minutes. Plan and coordination of the patient's care discussed in the presence of nurse. KENNETH
--- NOTE | 2017-05-18 10:54 | DS ---
DATE OF SERVICE: 05/15/17 FINAL DIAGNOSIS: 1. ACUTE PNEUMONIA, KLEBSIELLA OXYTOCA 2. BRONCHIOLITIS WITH LARYNGITIS 3. CHRONIC LUNG DISEASE 4. DIABETES MELLITUS, TYPE 2 5. DYSLIPIDEMIA DISCHARGE INSTRUCTIONS: Followup appointment with Dr. Joseph on 05/19/17 at 3:45 p.m. MEDICATIONS AT DISCHARGE: 1. Empagliflozin/Metformin (Synjardy 12.5-500 mg) one each p.o. b.i.d. NEW PRESCRIPTIONS: 1. Levaquin 750 mg daily for 7 days 2. Prednisone 20 mg daily for 5 days then 10 mg daily for 5 days 3. Tussionex 1 teaspoon at bedtime daily for 10 days 4. Mucinex 1200 mg b.i.d. ([id number]) DIET INSTRUCTIONS: As tolerated, liquids encouraged. ACTIVITY: Gradually resume as tolerated. Allow for frequent rest periods. No work until released by Dr. Joseph. SMOKING: N/A DISEASE SPECIFIC EDUCATION: 1. Medications 2. Outpatient treatment 3. Activity 4. Nutrition 5. 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 The patient was aggressively treated with IV steroids, IV antibiotics, nebs treatment, IV fluids. The patient's condition improved remarkably. At time of discharge, the patient' s oxygen saturation on room air was 96 to 97%. His lung findings on physical exam had good air entry with very minimal wheeze. Auscultatory findings of cardiovascular system was normal. The patient's echocardiogram showed borderline LVH with normal LV contractility, normal valvular structures. CT of the chest revealed bronchiolitis. The patient will be discharged on Rocephin 1 gm to be taken times two as an outpatient, Levaquin 750 mg p.o. daily for 7 days. He is also put on Mucinex. Steroids will be used 20 mg daily for 5 days and 10 mg daily for 5 days after that. The patient had Klebsiella sensitive to practically all antibiotics such as cephalosporins and fluoroquinolones. Hemoglobin at time of discharge 12, hematocrit 35, WBC 7,000, normal differential. Creatinine 1, BUN 21. A1C was lower 7. PLAN: 1. Outpatient Rocephin 1 gm IV is scheduled for 05/16 and 05/17 at [facility]. 2. No changes in home medication have been made. 3. You may resume Synjardy tomorrow morning. CONDITION AT TIME OF DISCHARGE: Stable. TIME SPENT: More than 60 minutes. TRUNGD
--- NOTE | 2017-05-18 11:04 | PN ---
CODING FOR BILLING 05/11/17 LEVEL 5 05/12/17 INTERMEDIATE 05/13/17 INTERMEDIATE 05/14/17 INTERMEDIATE 05/15/17 DISCHARGE MTDD
== END 2017-05-15 16:04 | disposition home or self-care (01) | DRG 193 ==
LOC: MEDSURG A 15:40
PROVIDERS: ADMIT Internal Medicine; ATTEND Internal Medicine
DX: J18.9 Pneumonia, unspecified organism (principal); J96.00 Acute respiratory failure, unspecified whether with hypoxia or hypercapnia; J21.9 Acute bronchiolitis, unspecified; J04.0 Acute laryngitis; E11.22 Type 2 diabetes mellitus with diabetic chronic kidney disease; I12.9 Hypertensive chronic kidney disease with stage 1 through stage 4 chronic kidney disease, or unspecified chronic kidney disease; N18.9 Chronic kidney disease, unspecified; J44.9 Chronic obstructive pulmonary disease, unspecified; I10 Essential (primary) hypertension; E78.5 Hyperlipidemia, unspecified; B96.89 Other specified bacterial agents as the cause of diseases classified elsewhere; Z16.11 Resistance to penicillins; Z79.84 Long term (current) use of oral hypoglycemic drugs
CPT/HCPCS: 36415; 80053; 81001; 82550; 82553; 82803; 82962; 83036; 83874; 84145; 84439; 84443; 84484; 85007; 85025; 85379; 86617; 86632; 86710; 86738; 86757; 87040; 87070; 87186; 87651; 87798; 87880; 93005; 93010; 94640; 94760; 99223; 99232; 99239

== ENCOUNTER 2018-03-16 12:36 | Outpatient (CLI) | payer OTHER ==
--- NOTE | 2018-03-16 17:06 | CT ---
EXAM: CTA chest HISTORY: Chest pain and epigastric pain radiating to the back COMPARISON: Same day CTA abdomen pelvis and CT chest 05/29/2008 TECHNIQUE: CTA of the chest was performed from the lung apices to the upper abdomen after 100 ml of Visipaque IV contrast was administered using angiographic protocol. 3-D imaging was also provided. FINDINGS: The ascending aorta is normal. There is minimal scattered atherosclerotic disease. There is no diss ection. The branching arteries off the aorta are normal. The heart is unremarkable without pericard ial effusion. There are no enlarged mediastinal or hilar lymph nodes. There is a nodule in the ante rior mediastinum measuring 1 cm in diameter. There is no pneumothorax or effusion. There is mild emphysema. There is mild bibasilar atelectasis. The airways are patent. There is no consolidation, nodule or mass. The osseous structures demonstrate multilevel degenerative disease of the spine. Limited views of th e upper abdomen are better evaluated on same day CTA abdomen pelvis. IMPRESSION: 1. No acute abnormality of the aorta or arteries in the chest. 2. Nonspecific nodular density in the anterior mediastinum. This has decreased in size from 2007. 3. Mild emphysematous disease and bibasilar atelectasis is present.
--- NOTE | 2018-03-16 18:06 | CT ---
EXAM: CT angiogram of the abdomen and pelvis. HISTORY: Abdominal pain. PROCEDURE: Contiguous axial CT images of the abdomen and pelvis with and without IV contrast with co katlin and sagittal reformats. FINDINGS: There is a fluid density cyst in the liver. The gallbladder is enlarged measuring 4.2 cm in diameter. The gallbladder wall is not well visualized by CT. There is a gallstone layering in the gallbladder. The pancreas, spleen, adrenal glands and kidneys are normal in appearance. The abdominal aorta is within normal limits in diameter. There are atherosclerotic calcifications in the abdomina l aorta and bilateral iliac arteries. There is mild stenosis at the origin of the left renal artery. There are accessory bilateral renal arteries. The origin of the inferior mesenteric artery is not wel l visualized. The appendix is normal in appearance. There is diverticulosis of the colon with no georgette dence of diverticulitis. No free fluid or free air in the abdomen or pelvis. There is a circumscribe d fluid density structure in the lateral right pelvis measuring 4.8 x 5.2 cm which abuts the adjacent small bowel. The bladder is adequately filled with no abnormality identified. The seminal vesicles and prostate gland are unremarkable. There are small bilateral inguinal hernias containing only fat. There is a 2 cm sebaceous cyst in the right gluteal subcutaneous tissues. There are degenerative jose nges in the spine. Impression: Cholelithiasis with enlarged gallbladder as described. Recommend ultrasound for further evaluation. 4.8 x 5.2 cm circumscribed fluid density structure in the lateral right pelvis abutting the adjacent small bowel. A dilated segment of small bowel cannot be excluded. Recommend ultrasound for further e valuation. Mild left renal artery stenosis. Diverticulosis of the colon with no evidence of diverticulitis. Bilateral inguinal hernias as described. 2 cm sebaceous cyst as described.
== END 2018-03-16 12:37 | disposition home or self-care (01) ==
LOC: LAB 12:36
PROVIDERS: ATTEND Internal Medicine
DX: R10.13 Epigastric pain (principal); R07.9 Chest pain, unspecified; E11.9 Type 2 diabetes mellitus without complications; R97.20 Elevated prostate specific antigen [PSA]; Z79.899 Other long term (current) drug therapy
CPT/HCPCS: 36415; 80053; 82150; 83036; 83690; 84153; 84484; 85025

== ENCOUNTER 2018-09-22 13:17 | Emergency (ER) ==
[2018-09-22] MEDS ORDERED: SODIUM CHLORIDE 1,000 ML IV STA (13:21)
[2018-09-22 13:30] VITALS: BP 158/79; TEMP 97.2; BMI 27.4
--- NOTE | 2018-09-22 14:34 | DI ---
EXAM: CHEST FRONTAL AND LATERAL VIEWS HISTORY: Cough. COMPARISON: 05/11/2017 FINDINGS: Heart size is normal. There is at least mild aortic atherosclerosis. Mild hyperinflation . No acute infiltrates are seen. No vascular congestion. There is no consolidation, visible pleura l fluid or pneumothorax. Bones reveal no acute fracture. IMPRESSION: No acute cardiopulmonary process.
--- NOTE | 2018-09-22 14:41 | MRI ---
EXAM: MRI brain without IV contrast. DATE: 22 September 2018. HISTORY: Dizziness. TECHNIQUE: Sagittal T1W, axial T2W, axial FLAIR, axial T1W, axial DWI, and coronal T2W GRE sequences of the brain were obtained using 1.2 Lor magnet. No IV contrast. COMPARISON: CT head 14 May 2017. MRI brain 16 September 2016. FINDINGS: The ventricles, cisterns, sulci and subarachnoid spaces are commensurately enlarged due to involutional change. No midline shift, mass effect or abnormal extra-axial fluid collection is appa rent. No acute infarct, hemorrhage or neoplasm is identified. Large, confluent rim of T2W/FLAIR hyp erintensity is observed in the white matter abutting each lateral ventricle and extending into the co demario radiata, centrum semiovale and subcortical white matter bilaterally. Other subcentimeter and la rger areas of T2W/FLAIR hyperintense scattered in the acuna radiata, centrum semiovale subcortical w matthew matter are slightly more prominent compared to August 2016. Old lacunar infarct is seen withi n the medial aspect of the right globus pallidus. The gorman - white matter differentiation is normal. The 7th/8th cranial nerve complexes, cerebellopontine angles, brainstem, and visible cervical spina l cord are normal. There is no cerebellar tonsillar ectopia. The pituitary gland is low normal in s ize and has normal signal. Corpus callosum is normal in size and configuration. Flow voids are pres ent in the major intracranial arteries and in the dural venous sinuses. No aneurysm, AVM or dural ve nous sinus thrombosis is apparent. No orbit abnormality is identified. The mastoid air cells are un remarkable. There is no acute sinusitis. Two small retention cysts are suspected at the left maxill karla sinus floor. No neck mass or lymphadenopathy is detected. No calvarial neoplasm or acute fractu re is evident. IMPRESSIONS: 1. No acute infarct, hemorrhage, neoplasm or hydrocephalus. 2. 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 Metabolic disorder, vasculitis, demyelinating disease might cause a similar appearance. 3. Moderate cerebral and minor/mild cerebellar atrophy. 4. Left maxillary sinus small retention cysts. Note: Report faxed to ER physician at 1434 hrs, 22 September 2018.
--- NOTE | 2018-09-22 14:52 | US ---
EXAM: ULTRASOUND CAROTID DUPLEX, BILATERAL HISTORY: Dizziness, near-syncope FINDINGS: Lorenzana-scale ultrasound, color Doppler and spectral analysis was performed. Velocities are in meters per second. By lorenzana scale and color Doppler imaging, there were regions of heterogeneous plaque formation identi fied within the carotid bulbs and internal carotid arteries. These regions of plaque appeared to rem ain less than 50% vessel diameter. RIGHT: External carotid artery peak systolic velocity: 1.4 Common carotid artery peak systolic velocity/end diastolic velocity: 0.9/0.01 Internal carotid artery peak systolic velocity: 1.1 ICA/CCA peak systolic velocity ratio: 1.2 ICA end diastolic velocity: 0.3 LEFT: External carotid artery peak systolic velocity: 0.6 Common carotid artery peak systolic velocity/end diastolic velocity: 1.1/0.2 Internal carotid artery peak systolic velocity: 0.9 ICA/CCA peak systolic velocity ratio: 0.8 ICA end diastolic velocity: 0.2 The right and left vertebral arteries were antegrade. IMPRESSION: 1. By lorenzana scale and color Doppler imaging, there were regions of heterogeneous plaque formation harika ntified within the carotid bulbs and internal carotid arteries. These regions of plaque appeared to remain less than 50% vessel diameter. 2. Internal carotid artery peak systolic velocities and ICA/CCA peak systolic velocity ratios indica te no hemodynamically significant stenosis bilaterally. 3. Both vertebral arteries were antegrade.
--- NOTE | 2018-09-22 15:03 | ED.PDOC ---
General ED Provider: Dr. KEL LOUIS Chief Complaint: Dizziness Stated Complaint: dizziness Time Seen by Physician: 13:20 (arrived to doctors room found pt weak and dizzy ) Mode of Arrival: Wheelchair Information Source: Patient Exam Limitations: No limitations (none transfered pt to ED NO NEURO DEFICITS NOTED ) Primary Care Provider: PADMINI RODRIGUES Nursing and Triage Documentation Reviewed and Agree: Yes Does patient meet sepsis criteria?: No System Inflammatory Response Syndrome: Not Applicable Sepsis Protocol: For patient's 13 years and over: Temp is 96.8 and below OR 101 and greater Pulse >90 BPM Resp >20/minute Acutely Altered Mental Status Are patient's symptoms suggestive of a new infection, such as: -Pneumonia -Skin, Soft Tissue -Endocarditis -UTI -Bone, Joint Infection -Implantable Device -Acute Abdominal Infection -Wound Infection -Meningitis -Blood Stream Catheter Infection -Unknown Neurological Complaint Exam - Dizziness Complaint/Exam Last Known Well: TODAY Onset: Sudden Duration: 2 MIN WITNESSED BY MYSELF Symptoms Are: Resolved Episodes Lasting: Minutes Initial Severity: Moderate Current Severity: None Character: Reports: Lightheaded, Weak, Dizzy Aggravating: Reports: None Alleviating: Reports: None Associated Signs and Symptoms: Denies: Nausea, Vomiting, Diaphoresis, Tinnitus, Chest pain, Short of air, Palpitations, Unsteady gait, GI blood loss, Visual changes, Decreased oral intake, Change in medication, Change in diet, OTC meds, Loss of balance Cardiac Risk Factors: Reports: Diabetes CVA Risk Factors: Reports: Diabetes Related Surgical History: Reports: None JVD Present: No Carotid Bruit Present: No Glascow Coma Scale (see protocol): 15 Nystagmus Present: No Gag Reflex Present: Yes Focal Weakness: Present: None Focal Sensory Loss: Present: None Gait: Normal Differential Diagnoses: CAD, FL, Dysrhythmia, Hypovolemia, Labyrinthitis, Metabolic abnormalities, Vasovagal reaction Quality Indicators for Cardiac Chest Pain: EKG in 10min. Quality Indicators for AMI: EKG in 10min. Quality Indicator For Non-Traumatic Chest Pain/Syncope: EKG Performed Review of Systems - Review Of Systems Constitutional: Reports: No symptoms Eyes: Reports: No symptoms Ears, Nose, Mouth, Throat: Reports: No symptoms Respiratory: Reports: No symptoms Cardiac: Reports: No symptoms GI: Reports: No symptoms : Reports: No symptoms Musculoskeletal: Reports: No symptoms Skin: Reports: No symptoms Neurological: Reports: Other (DIZZINESS) Endocrine: Reports: No symptoms Hematologic/Lymphatic: Reports: No symptoms All Other Systems: Reviewed and Negative Past Medical History - Past Medical History Previously Healthy: Yes Endocrine: Reports: DM 2 Cardiovascular: Reports: None Respiratory: Reports: None Hematological: Reports: None Gastrointestinal: Reports: None Genitourinary: Reports: None Neuro/Psych: Reports: None Musculoskeletal: Reports: None Cancer: Reports: None - Surgical History General Surgical History: Reports: None - Family History Family History: Reports: None - Social History Smoking Status: Former smoker Hx Substance Use: No Alcohol Screening: None - Immunizations Tetanus Shot up to Date: Yes Physical Exam - Physical Exam Appearance: Well-appearing, No pain distress, Well-nourished Eyes: SANKET, EOMI, Conjunctiva clear ENT: Ears normal, Nose normal, Oropharynx normal Respiratory: Airway patent, Breath sounds clear, Breath sounds equal, Respirations nonlabored Cardiovascular: RRR, Pulses normal, No rub, No murmur GI/: Soft, Nontender, No masses, Bowel sounds normal, No Organomegaly Musculoskeletal: Normal strength, ROM intact, No edema, No calf tenderness Skin: Warm, Dry, Normal color Neurological: Sensation intact, Motor intact, Reflexes intact, Cranial nerves intact, Alert, Oriented Psychiatric: Affect appropriate, Mood appropriate - NIH Stroke Scale 1a. Level of Consciousness: 0=Alert and keenly responsive 1b. Level of Consciousness Questions: 0=Answers correctly to two questions 1c. Level of Consciousness Commands: 0=Performs two tasks correctly 2. Best Gaze: 0=Normal 3. Visual: 0=No visual loss 4. Facial Palsy: 0=Normal 5a. Motor Left Arm: 0=No drift,arm holds 90 degrees for 10 sec., leg 30 degrees for 5 sec. 5b. Motor Right Arm: 0=No drift,arm holds 90 degrees for 10 sec., leg 30 degrees for 5 sec. 6a. Motor Left Le=No drift,arm holds 90 degrees for 10 sec., leg 30 degrees for 5 sec. 6b. Motor Right Le=No drift,arm holds 90 degrees for 10 sec., leg 30 degrees for 5 sec. 7. Limb Ataxia: 0=Absent 8. Sensory: 0=Normal 9. Best Language: 0=No aphasia 10. Dysarthria: 0=Normal 11. Extincion and Inattention: 0=Normal Stroke Scale Total: 0 Interpretation - Radiology Interpretation Radiology Interpretation By: Radiologist Radiology Results: No acute changes Re-Evaluation - Re-Evaluation Time of Re-Evaluation: 15:04 Status: Improved Vital Signs Stable: Yes Pain Level: 0 Appearance: NAD Lungs: Clear Skin: Warm and Dry Neuro: Alert and Oriented X3 CV: RRR Physician Notification - Case Discussed Physician Notified: 0 Critical Care Note - Critical Care Note Total Time (mins): 60 Course - Course Hematology/Chemistry: 09/22/18 13:20 09/22/18 13:20 Orders, Labs, Meds: Lab Review 09/22/18 09/22/18 09/22/18 13:20 13:20 13:20 WBC 5.46 RBC 5.00 Hgb 15.1 Hct 44.7 MCV 89.4 MCH 30.2 MCHC 33.8 RDW Coeff of Liza 11.9 Plt Count 158 Immature Gran % (Auto) 0.4 Neut % (Auto) 62.1 Lymph % (Auto) 29.3 [place] % (Auto) 6.2 Eos % (Auto) 1.5 Baso % (Auto) 0.5 Immature Gran # (Auto) 0.0 Neut # (Auto) 3.4 Lymph # (Auto) 1.6 [place] # (Auto) 0.3 L Eos # (Auto) 0.1 Baso # (Auto) 0.0 PT 9.7 INR 0.97 APTT 23.6 L D-Dimer (Manual) Sodium 137.2 Potassium 4.13 Chloride 104.4 Carbon Dioxide 26.8 Anion Gap 10.13 BUN 17.9 Creatinine 1.05 Estimated GFR (MDRD) 68.00 BUN/Creatinine Ratio 17.04 Glucose 136.4 H Calcium 8.67 Total Bilirubin 1.02 AST 24.3 ALT 10.7 Alkaline Phosphatase 76.3 Total Creatine Kinase 161.1 CK-MB (CK-2) 3.750 H CK-MB (CK-2) % 2.3200 Troponin I < 0.012 Total Protein 7.57 Albumin 4.43 Globulin 3.14 Albumin/Globulin Ratio 1.41 TSH 1.070 Free T4 Urine Color Urine Clarity Urine pH Ur Specific [place] Urine Protein Urine Glucose (UA) Urine Ketones Urine Blood Urine Nitrite Urine Bilirubin Urine Urobilinogen Ur Leukocyte Esterase Influ A Molecular Assay Influ B Molecular Assay RSV Antigen 09/22/18 09/22/18 09/22/18 13:20 13:20 13:20 WBC RBC Hgb Hct MCV MCH MCHC RDW Coeff of Liza Plt Count Immature Gran % (Auto) Neut % (Auto) Lymph % (Auto) [place] % (Auto) Eos % (Auto) Baso % (Auto) Immature Gran # (Auto) Neut # (Auto) Lymph # (Auto) [place] # (Auto) Eos # (Auto) Baso # (Auto) PT INR APTT D-Dimer (Manual) 812.23 Sodium Potassium Chloride Carbon Dioxide Anion Gap BUN Creatinine Estimated GFR (MDRD) BUN/Creatinine Ratio Glucose Calcium Total Bilirubin AST ALT Alkaline Phosphatase Total Creatine Kinase CK-MB (CK-2) CK-MB (CK-2) % Troponin I Total Protein Albumin Globulin Albumin/Globulin Ratio TSH Free T4 1.29 Urine Color Urine Clarity Urine pH Ur Specific [place] Urine Protein Urine Glucose (UA) Urine Ketones Urine Blood Urine Nitrite Urine Bilirubin Urine Urobilinogen Ur Leukocyte Esterase Influ A Molecular Assay Negative by naat Influ B Molecular Assay Negative by naat RSV Antigen 09/22/18 09/22/18 13:20 13:44 WBC RBC Hgb Hct MCV MCH MCHC RDW Coeff of Liza Plt Count Immature Gran % (Auto) Neut % (Auto) Lymph % (Auto) [place] % (Auto) Eos % (Auto) Baso % (Auto) Immature Gran # (Auto) Neut # (Auto) Lymph # (Auto) [place] # (Auto) Eos # (Auto) Baso # (Auto) PT INR APTT D-Dimer (Manual) Sodium Potassium Chloride Carbon Dioxide Anion Gap BUN Creatinine Estimated GFR (MDRD) BUN/Creatinine Ratio Glucose Calcium Total Bilirubin AST ALT Alkaline Phosphatase Total Creatine Kinase CK-MB (CK-2) CK-MB (CK-2) % Troponin I Total Protein Albumin Globulin Albumin/Globulin Ratio TSH Free T4 Urine Color Yellow Urine Clarity Clear Urine pH 7.0 Ur Specific [place] 1.015 Urine Protein Negative Urine Glucose (UA) 2+ Urine Ketones 2+ Urine Blood Negative Urine Nitrite Negative Urine Bilirubin Negative Urine Urobilinogen 0.2 Ur Leukocyte Esterase Negative Influ A Molecular Assay Influ B Molecular Assay RSV Antigen Negative by naat Orders Category Date Time Status EKG-(ED ONLY) Stat CARDIO 09/22/18 13:21 Completed EKG-(ED ONLY) Timed CARDIO 09/22/18 15:00 Ordered ED IV/MEDIPORT/POWERPORT .ONCE EMERGENCY 09/22/18 13:21 Active CBC W/ AUTO DIFF Stat LAB 09/22/18 13:20 Results COMPREHENSIVE METABOLIC PANEL Stat LAB 09/22/18 13:20 Results CREATINE KINASE Stat LAB 09/22/18 13:20 Results D-DIMER Stat LAB 09/22/18 13:20 Received FLU A/B MOLECULAR Stat LAB 09/22/18 13:20 Completed FREE T4 (FREE THYROXINE) Stat LAB 09/22/18 13:20 Completed PARTIAL THROMBOPLASTIN TIME Stat LAB 09/22/18 13:20 Completed PT WITH INR Stat LAB 09/22/18 13:20 Completed RSV Stat LAB 09/22/18 13:20 Completed THYROID STIMULATING HORMONE Stat LAB 09/22/18 13:20 Results TROPONIN I Stat LAB 09/22/18 13:20 Results URINALYSIS C & S IF INDICATED Stat LAB 09/22/18 13:33 Ordered 0.9 % Sodium Chloride [Saline Flush] MEDS 09/22/18 13:21 Ordered 1 syr IVF PRN PRN Sodium Chloride 0.9% [Sodium Chloride] 1,000 ml MEDS 09/22/18 13:21 Discontinued IV BOLUS CHEST, 2 VIEWS PA & LAT Stat RADS 09/22/18 14:23 Ordered MRI BRAIN W/O CONTRAST Stat RADS 09/22/18 13:39 Ordered U/S DOPPLER CAROTID Stat RADS 09/22/18 13:23 Ordered Medications Generic Name Dose Route Start Last Admin Trade Name Freq PRN Reason Stop Dose Admin Sodium Chloride 1 syr 09/22/18 13:21 Saline Flush IVF PRN PRN To flush IV Discontinued Medications Generic Name Dose Route Start Last Admin Trade Name Freq PRN Reason Stop Dose Admin Sodium Chloride 1,000 mls @ 1,000 mls/hr 09/22/18 13:21 Sodium Chloride IV 09/22/18 14:20 BOLUS STA Vital Signs: Temp Pulse Resp BP Pulse Ox 09/22/18 13:19 97.2 F L 68 16 158/79 H 99 Departure - Departure Time of Disposition: 15:05 (PT OS AWARE THAT HIS D DIMERS ARE HIGH AND IS NO INTERSTED TO PERSUED IT WITH CT CHEST P.E. PROTOCOL) Disposition: HOME SELF-CARE Discharge Problem: Dizziness Instructions: Dizziness (ED), Lightheadedness (ED) Condition: Good Pt referred to PMD for follow-up: Yes IPMP verified?: No Allergies/Adverse Reactions: Allergies moxifloxacin [From Avelox] Adverse Reaction (Verified 09/22/18 13:19)
== END 2018-09-22 15:05 | disposition home or self-care (01) ==
LOC: ED 13:17
DX: R42 Dizziness and giddiness (principal); R53.1 Weakness; R79.1 Abnormal coagulation profile; E11.9 Type 2 diabetes mellitus without complications
CPT/HCPCS: 36415; 80053; 81001; 82550; 82553; 82962; 84439; 84443; 84484; 85025; 85379; 85610; 85730; 87502; 87801; 93005; 93010; 99283

== ENCOUNTER 2018-12-02 13:01 | Outpatient (CLI) ==
--- NOTE | 2018-12-02 13:23 | DI ---
EXAM: CHEST FRONTAL AND LATERAL VIEWS HISTORY: Cough. COMPARISON: 09/22/2018 FINDINGS: Heart size and mediastinal contour remain within normal limits. There is at least mild atherosclerotic disease. Mild hyperinflation. No acute infiltrates are seen. No vascular congestio n. There is no consolidation, visible pleural fluid or pneumothorax. Bones reveal no acute fracture . IMPRESSION: No acute cardiopulmonary process.
== END 2018-12-02 13:02 | disposition home or self-care (01) ==
LOC: RAD 13:01
PROVIDERS: ATTEND Internal Medicine
DX: R05 Cough (principal); E11.9 Type 2 diabetes mellitus without complications; E78.5 Hyperlipidemia, unspecified; I10 Essential (primary) hypertension; H57.9 Unspecified disorder of eye and adnexa
CPT/HCPCS: 36415; 80053; 80061; 83036; 84145; 84443; 85025; 87070; 87077; 87186

== ENCOUNTER 2022-04-07 19:02 | Inpatient (IN) ==
[2022-04-07 19:37] LABS: BILIRUBIN,URINE Negative (NEGATIVE); CLARITY,URINE Clear (CLEAR); COLOR,URINE Yellow (YELLOW); GLUCOSE, URINE (UA) Negative (NEGATIVE); KETONES,URINE Negative (NEGATIVE); LEUKOCYTE ESTERASE ,URINE Negative (NEGATIVE); NITRITE,URINE Negative (NEGATIVE); PH,URINE 6.5 (5-9); PROTEIN,URINE 3+ (NEGATIVE); URINE, BLOOD 2+ (NEGATIVE); UROBILINOGEN,URINE 0.2 (0.2)
--- NOTE | 2022-04-07 20:00 | CT ---
EXAM: CHEST CT WITHOUT CONTRAST HISTORY: Cough and fever. TECHNIQUE: CT acquisition of the chest from the thoracic inlet to the upper abdomen without IV contra st administration. IV Contrast: None CT Dose Reduction Techniques Performed: Yes. COMPARISON: Chest CT 12/25/2021 FINDINGS: Lines, Tubes, Devices: None. Lung Parenchyma and Airways: Central airways are patent without endobronchial lesion. Mild upper lob e predominant centrilobular emphysema. Ill-defined consolidation in the right upper lobe, axial imag e 18. Linear atelectasis in the bilateral lower lobes and lingula. Pleural Space: Small right pleural effusion. No pleural thickening. No pneumothorax. Thoracic Inlet, Mediastinum, and Penn[place]: Thyroid gland is atrophic. Borderline enlarged subcarinal and right hilar lymph nodes, however poorly visualized on noncontrast exam. Heart, Vessels, and Pericardium: Aorta is normal in caliber with mild atherosclerotic calcifications. Main pulmonary artery is normal in caliber. Heart chambers are not enlarged. No significant valvu lar calcifications. Severe coronary artery calcifications, however exam is not optimized for evaluat ion. Moderate sized pericardial effusion. Bones and Soft Tissues: Diffuse idiopathic skeletal hyperostosis. Predominantly moderate multilevel degenerative changes of the spine. Multiple chronic left rib fractures. No acute fracture. Chest w all soft tissues are within normal limits. Upper Abdomen: Trace perihepatic ascites and mild mesenteric edema with a moderate amount of edema i n the left pericolic gutter. Cholelithiasis. IMPRESSION: Right upper lobe consolidation superimposed on emphysematous changes concerning for pneumonia. Moderate sized pericardial effusion, slightly enlarged from prior. Trace perihepatic ascites with mesenteric edema and a moderate amount of nonspecific edema in the lef t pericolic gutter, incompletely imaged. Severe coronary calcifications. All CT scans are performed using dose optimization techniques as appropriate to the performed exam an d include at least one of the following: Automated exposure control, adjustment of the mA and/or kV according t o size, and the use of iterative reconstruction technique.
[2022-04-07 20:18] LABS: BASOPHILS % (AUTO) 0.4 % (0.0-3.0); EOSINOPHILS % (AUTO) 0.2 % (0.0-7.0); HEMATOCRIT 22.2 % (42.0-52.0); HEMOGLOBIN 7.2 g/dl (14.0-18.0); IMMATURE GRANULOCYTE % (AUTO) 0.4 % (0.0-5.0); LYMPHOCYTES % (AUTO) 58.8 (10.0-50.0); MEAN CORPUSCULAR HEMOGLOBIN 30.9 pg (27.0-31.0); MEAN CORPUSCULAR HGB CONC 32.4 (31.8-35.4); MEAN CORPUSCULAR VOLUME 95.3 fl (80.0-94.0); MONOCYTES # (AUTO) 0.2 K/uL (0.4-2.0); MONOCYTES % (AUTO) 4.8 (0-10); NEUTROPHILS # (AUTO) 1.8 K/ul (2.0-6.9); NEUTROPHILS % (AUTO) 35.4 % (42.2-75.2); PLATELET COUNT 197 10^3/uL (140-440); RDW COEFFICIENT OF VARIATION 21.6 % (11.6-14.8); RED BLOOD COUNT 2.33 10^6/ul (4.70-6.10); WHITE BLOOD COUNT 5.03 K/ul (4.2-10.2)
[2022-04-07 20:34] LABS: ALANINE AMINOTRANSFERASE 12.5 U/L (0-50); ALBUMIN 3.43 g/dL (3.5-5.0); ALKALINE PHOSPHATASE 266.1 U/L (56-119); ASPARTATE AMINO TRANSFERASE 46.8 U/L (17-59); BILIRUBIN,TOTAL 1.41 mg/dL (0.2-1.3); BLOOD UREA NITROGEN 22.8 mg/dL (9-20); CALCIUM 7.64 mg/dL (8.4-10.2); CARBON DIOXIDE 22.4 mmol/L (22-30.0); CHLORIDE 103.5 mmol/L (98-107); CREATININE 1.49 mg/dL (0.60-1.10); GLUCOSE 141.5 mg/dL (74-106); POTASSIUM 3.81 mmol/L (3.5-5.1); SODIUM 133.2 mmol/L (134.5-145); TOTAL PROTEIN 7.03 g/dL (6.3-8.2)
[2022-04-07 20:38] LABS: ABG O2 HGB 90.2 % (95-100); BEecf 0.9 (-2.0-3.0); COHb 3.3 (0.5-1.5); HCO3 23.9 (21-28); MetHb 1.6 (0-1.5); TCO2 24.8 (19-24); sO2 90.4 % (94-98); tHb 7.7 g/dl (11.7-17.4)
[2022-04-07 20:49] LABS: BORDETELLA PARAPERTUSSIS (PCR) NOT DETECTED (NOT DETECT); BORDETELLA PERTUSSIS (PCR) NOT DETECTED (NOT DETECT); CHLAMYDIA PNEUMONIAE (PCR) NOT DETECTED (NOT DETECT); CORONAVIRUS 229E (PCR) NOT DETECTED (NOT DETECT); CORONAVIRUS HKU1 (PCR) NOT DETECTED (NOT DETECT); CORONAVIRUS NL63 (PCR) NOT DETECTED (NOT DETECT); CORONAVIRUS OC43 (PCR) NOT DETECTED (NOT DETECT); HUMAN METAPNEUMOVIRUS (PCR) NOT DETECTED (NOT DETECT); HUMAN RHINOVIRUS/ENTEROV (PCR) NOT DETECTED (NOT DETECT); INFLUENZA B (PCR) NOT DETECTED (NOT DETECT); MYCOPLASMA PNEUMONIAE (PCR) NOT DETECTED (NOT DETECT); PARAINFLUENZA VIRUS 1 (PCR) NOT DETECTED (NOT DETECT); PARAINFLUENZA VIRUS 2 (PCR) NOT DETECTED (NOT DETECT); PARAINFLUENZA VIRUS 3 (PCR) NOT DETECTED (NOT DETECT); PARAINFLUENZA VIRUS 4 (PCR) NOT DETECTED (NOT DETECT); RESPIRATORY SYNCYTIAL V (PCR) NOT DETECTED (NOT DETECT); SARS_COV_2 (PCR) NOT DETECTED (NOT DETECT)
[2022-04-07] MEDS ORDERED: TYLENOL PO STA (20:54)
[2022-04-07 21:11] LABS: ABG PH 7.51 (7.35-7.45)
[2022-04-07] MEDS ORDERED: ROCEPHIN 1 GM/50 ML D5W 1 GM/50 ML BAG IV ONE (21:31)
--- NOTE | 2022-04-07 21:31 | ED.PDOC ---
General ED Provider: Dr. MISBAH SOLIS Chief Complaint: Weakness Stated Complaint: Generalized weakness for a few days, and has now developed a mild fever and cough. Also, having some UTI symptoms. Hx of a recent anemia of unclear etiology. He has had extensive GI work-ups at [facility] in [place] and at [facility] with no obvious cause for any GI blood loss. He did require blood transfusions in the relatively recent past. He has stopped ASA on his own and he takes a PPI. He also has a BPH condition and sees a urologist. Time Seen by Provider: 04/07/22 19:26 Mode of Arrival: Walk-In Information Source: Patient Exam Limitations: No limitations Primary Care Provider: PADMINI JOSEPH Nursing and Triage Documentation Reviewed and Agree: Yes Does patient meet sepsis criteria?: No System Inflammatory Response Syndrome: Not Applicable Sepsis Protocol: For patient's 13 years and over: Temp is 96.8 and below OR 101 and greater Pulse >90 BPM Resp >20/minute Acutely Altered Mental Status Are patient's symptoms suggestive of a new infection, such as: -Pneumonia -Skin, Soft Tissue -Endocarditis -UTI -Bone, Joint Infection -Implantable Device -Acute Abdominal Infection -Wound Infection -Meningitis -Blood Stream Catheter Infection -Unknown Respiratory Complaint Exam Respiratory Complaint/Exam Onset/Duration: Few d Symptoms Are: Still present Timing: Intermittent Initial Severity: Mild Current Severity: Moderate Location: Chest Character: Reports Productive cough Aggravating: Reports None Alleviating: Reports None Associated Signs and Symptoms: Reports Fever and URI; Denies Rapid breathing, Dyspnea, Chills, Chest pain, Pleuritic chest pain, Wheezing, Hemoptysis, Dizziness, Calf pain, Calf swelling, Edema, Nasal congestion, Hoarseness, Sinus discomfort, Vomiting, Sore throat, Weight loss, Decreased oral intake, Increased thirst, Increased appetite or Increased urination Related History: Reports Similar episode History of Healthcare-Acquired Pneumonia: No Related Surgical History: Reports None Pulmonary Embolism Risk Factors: None Cardiac Risk Factors: Reports None Pseudomonas Risk Factors: Reports None Tuberculosis Risk Factors: Reports None Status Asthmaticus Risk Factors: Reports None Home Oxygen Use: No Recent Stress Test: No Recent Echo/LV Function: No Current Antibiotic Use: No Current Asthma Medication Use: No Respiratory Distress: Mild Inadequate Respiratory Effort: No Dysphagia Present: No JVD Present: No Accessory Muscle Use: No Retractions: Not Present Diminished Breath Sounds: Yes Sinus Tenderness: None Grunting Respirations: No Kussmaul Respirations: No Review of Systems Review Of Systems Constitutional: Reports Fever, Malaise and Weakness Eyes: Reports No symptoms Ears, Nose, Mouth, Throat: Reports No symptoms Respiratory: Reports Cough Cardiac: Reports No symptoms GI: Reports Nausea : Reports Dysuria and Frequency Musculoskeletal: Reports No symptoms Skin: Reports No symptoms Neurological: Reports No symptoms Endocrine: Reports No symptoms Hematologic/Lymphatic: Reports No symptoms All Other Systems: Reviewed and Negative [facility] Medical History (Updated 04/08/22 @ 08:27 by SILVIA CORREA) Diabetes Fall on concrete Head injury Hypertension Need for vaccination against Streptococcus pneumoniae using pneumococcal conjugate vaccine 13 Pneumonia Family History (Updated 04/07/22 @ 23:46 by JESSICA OCONNELL RN) Other No known health problems Social History (Updated 04/07/22 @ 23:46 by JESSICA OCONNELL RN) Smoking and tobacco status: Former smoker Physical Exam Physical Exam Appearance: Reports Ill-appearing Ill-appearing: Moderate Pain Distress: Mild Eyes: Reports SANKET ENT: Reports Oropharynx normal Neck: Supple Respiratory: Reports Airway patent and Rhonchi Cardiovascular: Reports RRR GI/: Reports Soft and Nontender Musculoskeletal: Reports Normal strength and ROM intact Skin: Reports Warm and Dry Neurological: Reports Sensation intact and Motor intact Psychiatric: Reports Affect appropriate and Mood appropriate Interpretation Radiology Interpretation Radiology Interpretation By: Radiologist Radiology Results: Positive Exam Interpreted: CT Scan Xray Comments: CT chest (at patient's request instead of CXR) - RUL pneumonia, see report EKG Interpretation Time of EKG #1: 20:24 Rate: Normal Rhythm: Sinus Ectopy: None [place]: NL ST Segment: Normal Interpretation: WNL Physician Notification Case Discussed Physician Notified: Dr. Joseph Time of Notification: 22:00 Comments: Admit. Patient had some interest in transfer to [facility], but no beds available. Admit/Transition Orders Entered by ED Provider: Yes Reviewed With: Dr. Joseph Admit To: Inpatient Critical Care Note Critical Care Note Total Critical Care Time (mins): 0 Course Course Hematology/Chemistry: 04/08/22 04:56 04/08/22 04:56 Orders, Labs, Meds: Lab Review 04/07/22 04/07/22 04/07/22 19:30 20:15 20:15 WBC 5.03 RBC 2.33 L Hgb 7.2 L Hct 22.2 L MCV 95.3 H MCH 30.9 MCHC 32.4 RDW Coeff of Liza 21.6 H Plt Count 197 Immature Gran % (Auto) 0.4 Neut % (Auto) 35.4 L Lymph % (Auto) 58.8 H [place] % (Auto) 4.8 Eos % (Auto) 0.2 Baso % (Auto) 0.4 Neut # (Auto) 1.8 L Lymph # (Auto) 3.0 [place] # (Auto) 0.2 L Eos # (Auto) 0.0 Baso # (Auto) 0.0 Immature Gran # (Auto) 0.0 Puncture Site Base Excess O2 Saturation ABG pH ABG pCO2 ABG pO2 ABG HCO3 ABG Total CO2 Mihir Test Hemoglobin Oxyhemoglobin Carboxyhemoglobin Total Hemoglobin Sodium 133.2 L Potassium 3.81 Chloride 103.5 Carbon Dioxide 22.4 Anion Gap 11.11 BUN 22.8 H Creatinine 1.49 H Estimated GFR (MDRD) 45.00 BUN/Creatinine Ratio 15.30 Glucose 141.5 H Lactic Acid Calcium 7.64 L Total Bilirubin 1.41 H AST 46.8 ALT 12.5 Alkaline Phosphatase 266.1 H Total Protein 7.03 Albumin 3.43 L Globulin 3.60 Albumin/Globulin Ratio 0.95 Procalcitonin Urine Color Yellow Urine Clarity Clear Urine pH 6.5 Ur Specific [place] 1.025 Urine Protein 3+ H Urine Glucose (UA) Negative Urine Ketones Negative Urine Blood 2+ H Urine Nitrite Negative Urine Bilirubin Negative Urine Urobilinogen 0.2 Ur Leukocyte Esterase Negative Urine Microscopic RBC 5-10 Urine Microscopic WBC 2-5 Ur Squamous Epith Cells 2-5 Adenovirus (PCR) B. pertussis DNA (PCR) B.parapertussis DNA PCR C. pneumoniae DNA (PCR) Coronavirus OC43 (PCR) Coronavirus HKU1 (PCR) Coronavirus 229E (PCR) Coronavirus NL63 (PCR) Human Metapneumovir PCR Influenza Type A (PCR) Influenza B (RT-PCR) M. pneumoniae (PCR) Parainfluenza 1 (PCR) Parainfluenza 2 (PCR) Parainfluenza 3 (PCR) Parainfluenza 4 (PCR) RSV (PCR) Entero/Rhino (PCR) SARS-CoV-2 (PCR) 04/07/22 04/07/22 04/07/22 20:15 20:15 20:19 WBC RBC Hgb Hct MCV MCH MCHC RDW Coeff of Liza Plt Count Immature Gran % (Auto) Neut % (Auto) Lymph % (Auto) [place] % (Auto) Eos % (Auto) Baso % (Auto) Neut # (Auto) Lymph # (Auto) [place] # (Auto) Eos # (Auto) Baso # (Auto) Immature Gran # (Auto) Puncture Site Rbrach Base Excess 0.9 O2 Saturation 90.4 L ABG pH 7.51 H* ABG pCO2 30.0 L ABG pO2 53.0 L* ABG HCO3 23.9 ABG Total CO2 24.8 H Mihir Test Pos Hemoglobin 1.6 H Oxyhemoglobin 90.2 L Carboxyhemoglobin 3.3 H Total Hemoglobin 7.7 L Sodium Potassium Chloride Carbon Dioxide Anion Gap BUN Creatinine Estimated GFR (MDRD) BUN/Creatinine Ratio Glucose Lactic Acid 0.77 Calcium Total Bilirubin AST ALT Alkaline Phosphatase Total Protein Albumin Globulin Albumin/Globulin Ratio Procalcitonin 0.11 H Urine Color Urine Clarity Urine pH Ur Specific [place] Urine Protein Urine Glucose (UA) Urine Ketones Urine Blood Urine Nitrite Urine Bilirubin Urine Urobilinogen Ur Leukocyte Esterase Urine Microscopic RBC Urine Microscopic WBC Ur Squamous Epith Cells Adenovirus (PCR) B. pertussis DNA (PCR) B.parapertussis DNA PCR C. pneumoniae DNA (PCR) Coronavirus OC43 (PCR) Coronavirus HKU1 (PCR) Coronavirus 229E (PCR) Coronavirus NL63 (PCR) Human Metapneumovir PCR Influenza Type A (PCR) Influenza B (RT-PCR) M. pneumoniae (PCR) Parainfluenza 1 (PCR) Parainfluenza 2 (PCR) Parainfluenza 3 (PCR) Parainfluenza 4 (PCR) RSV (PCR) Entero/Rhino (PCR) SARS-CoV-2 (PCR) 04/07/22 20:35 WBC RBC Hgb Hct MCV MCH MCHC RDW Coeff of Liza Plt Count Immature Gran % (Auto) Neut % (Auto) Lymph % (Auto) [place] % (Auto) Eos % (Auto) Baso % (Auto) Neut # (Auto) Lymph # (Auto) [place] # (Auto) Eos # (Auto) Baso # (Auto) Immature Gran # (Auto) Puncture Site Base Excess O2 Saturation ABG pH ABG pCO2 ABG pO2 ABG HCO3 ABG Total CO2 Mihir Test Hemoglobin Oxyhemoglobin Carboxyhemoglobin Total Hemoglobin Sodium Potassium Chloride Carbon Dioxide Anion Gap BUN Creatinine Estimated GFR (MDRD) BUN/Creatinine Ratio Glucose Lactic Acid Calcium Total Bilirubin AST ALT Alkaline Phosphatase Total Protein Albumin Globulin Albumin/Globulin Ratio Procalcitonin Urine Color Urine Clarity Urine pH Ur Specific [place] Urine Protein Urine Glucose (UA) Urine Ketones Urine Blood Urine Nitrite Urine Bilirubin Urine Urobilinogen Ur Leukocyte Esterase Urine Microscopic RBC Urine Microscopic WBC Ur Squamous Epith Cells Adenovirus (PCR) Not detected B. pertussis DNA (PCR) Not detected B.parapertussis DNA PCR Not detected C. pneumoniae DNA (PCR) Not detected Coronavirus OC43 (PCR) Not detected Coronavirus HKU1 (PCR) Not detected Coronavirus 229E (PCR) Not detected Coronavirus NL63 (PCR) Not detected Human Metapneumovir PCR Not detected Influenza Type A (PCR) Not detected Influenza B (RT-PCR) Not detected M. pneumoniae (PCR) Not detected Parainfluenza 1 (PCR) Not detected Parainfluenza 2 (PCR) Not detected Parainfluenza 3 (PCR) Not detected Parainfluenza 4 (PCR) Not detected RSV (PCR) Not detected Entero/Rhino (PCR) Not detected SARS-CoV-2 (PCR) Not detected Orders Category Date Time Status ABG DRAW REQUEST Stat CARDIO 04/07/22 20:14 Completed EKG-(ED ONLY) Stat CARDIO 04/07/22 20:14 Completed EKG-(IP & OP ONLY) DAILY CARDIO 04/08/22 06:00 Completed EKG-(IP & OP ONLY) DAILY CARDIO 04/09/22 06:00 Ordered OXYGEN Routine CARDIO 04/07/22 22:48 Active ACTIVITY .BR with BRP CARE 04/07/22 22:48 Active IP: INSERT SALINE LOCK ONCE CARE 04/07/22 22:48 Active TELEMETRY MONITORING TELE CARE 04/07/22 22:48 Active VITAL SIGNS Q8HR CARE 04/07/22 22:48 Active CARDIAC DIET DIETARY 04/07/22 Breakfast Ordered ABG COOX Stat LAB 04/07/22 20:19 Completed BLOOD CULTURE (ED ONLY) Stat LAB 04/07/22 20:15 Received CBC W/ AUTO DIFF Stat LAB 04/07/22 20:15 Completed CBC W/ AUTO DIFF Stat LAB 04/07/22 22:47 Completed COMPREHENSIVE METABOLIC PANEL Stat LAB 04/07/22 20:15 Completed LACTIC ACID Stat LAB 04/07/22 20:15 Completed PROCALCITONIN Stat LAB 04/07/22 20:15 Completed RESPIRATORY PANEL 2.1 (PCR) Stat LAB 04/07/22 20:35 Completed URINALYSIS C & S IF INDICATED Stat LAB 04/07/22 19:30 Completed 0.9 % Sodium Chloride [Saline Flush] MEDS 04/08/22 05:00 Active 1 syr IVF Q8HR Acetaminophen [Tylenol] MEDS 04/07/22 20:54 Discontinued 650 mg PO ONCE STA Acetaminophen [Tylenol] MEDS 04/07/22 22:47 Active 650 mg PO Q4H PRN Atropine Sulfate Inj [Atropine Sulfate Pfs] MEDS 04/07/22 22:47 Active 0.5 mg IVP ONCE PRN Ceftriaxone/D5w 1 gm Premix [Rocephin 1 gm/50 ml D5w] MEDS 04/08/22 21:00 Active 1 gm in 50 ml IV BEDTIME Ceftriaxone/D5w 1 gm Premix [Rocephin 1 gm/50 ml D5w] MEDS 04/07/22 21:31 Discontinued 1 gm in 50 ml IV ONCE Nitroglycerin [Nitrostat] MEDS 04/07/22 22:47 Active 0.4 mg SL Q5MIN X [address] CHEST W/O CONTRAST Stat RADS 04/07/22 19:29 Completed Medications Generic Name Dose Route Start Last Admin Trade Name Freq PRN Reason Stop Dose Admin Acetaminophen 650 mg 04/07/22 22:47 Acetaminophen 325 Mg Tablet PO Q4H PRN Headache Atropine Sulfate 0.5 mg 04/07/22 22:47 Atropine Sulfate Inj 1 Mg/10 Ml Disp.Syrin IVP ONCE PRN Symptomatic Bradycardia CEFTRIAXONE/D5W 1 GM PREMIX 1 gm in 50 mls @ 75 mls/hr 04/08/22 21:00 Rocephin 1 Gm/50 Ml D5w IV 04/11/22 20:59 BEDTIME VICKEY Azithromycin 500 mg/ Sodium 250 mls @ 125 mls/hr 04/08/22 21:00 Chloride IV 04/10/22 22:59 BEDTIME VICKEY Insulin Glargine 12 - 16 unit 04/08/22 09:00 Insulin Glargine,Hum.Rec.Anlog 100 Units/Ml SUBCUT DAILY VICKEY Nitroglycerin 0.4 mg 04/07/22 22:47 Nitroglycerin 0.4 Mg Tab.Subl SL Q5MIN X 3 DOSES PRN Chest Pain Non-Formulary Medication 0.5 tab 04/08/22 09:00 Empagliflozin-Metformin [Synjardy] PO BID VICKEY Pantoprazole Sodium 40 mg 04/08/22 06:30 04/08/22 05:32 Pantoprazole Sodium 40 Mg Tablet.Dr PO 40 mg BIDAC VICKEY Administration Sodium Chloride 1 syr 04/08/22 05:00 04/08/22 05:32 0.9% Sodium Chloride 10 Ml Disp.Syrin IVF 1 syr Q8HR VICKEY Administration Zolpidem Tartrate 10 mg 04/07/22 23:45 04/08/22 00:36 Zolpidem Tartrate 5 Mg Tablet PO 10 mg BEDTIME VICKEY Administration Discontinued Medications Generic Name Dose Route Start Last Admin Trade Name Freq PRN Reason Stop Dose Admin Acetaminophen 650 mg 04/07/22 20:54 04/07/22 20:58 Acetaminophen 325 Mg Tablet PO 04/07/22 20:55 650 mg ONCE STA Administration Al Hydroxide/Mg Hydroxide 30 ml 04/07/22 23:54 04/08/22 00:14 Mag Hydrox/Al Hydrox/Simeth 30 Ml Cup PO 04/07/22 23:55 30 ml ONCE ONE Administration CEFTRIAXONE/D5W 1 GM PREMIX 1 gm in 50 mls @ 75 mls/hr 04/07/22 21:31 04/07/22 22:05 Rocephin 1 Gm/50 Ml D5w IV 04/07/22 22:10 75 mls/hr ONCE ONE Administration Azithromycin 500 mg/ Sodium 250 mls @ 125 mls/hr 04/07/22 23:00 04/07/22 23:24 Chloride IV 04/10/22 22:59 125 mls/hr 2300 VICKEY Administration Vital Signs: Temp Pulse Resp BP Pulse Ox 04/07/22 22:48 100 F H 88 16 162/72 H 96 04/07/22 20:51 102.2 F H 94 H 16 164/80 H 100 04/07/22 19:05 101.9 F H 93 H 16 172/68 H 97 Discharge Plan Discharge Patient Disposition: ADMITTED INPATIENT Discharge Problem: Pneumonia, Anemia Did you review [place] MINK SLICER?: Not Applicable ED Provider: MISBAH SOLIS Condition: Good Physician Progress Note: []Admit with IV abx for pneumonia. Anemia noted and will monitor, guidelines do not allow transfusion until Hb under 7.
[2022-04-07 21:37] LABS: ADENOVIRUS (PCR) NOT DETECTED (NOT DETECT)
[2022-04-07] MEDS ORDERED: NITROSTAT SL PRN (22:47)
[2022-04-07] MEDS ORDERED: ATROPINE SULFATE PFS IVP PRN (22:47)
[2022-04-07] MEDS ORDERED: TYLENOL PO PRN (22:47)
[2022-04-07] MEDS ORDERED: ZITHROMAX 500 MG in SODIUM CHLORIDE 250 ML IV SCH (23:00)
[2022-04-07] MEDS ORDERED: AMBIEN PO SCH (23:45)
[2022-04-07 23:50] VITALS: BMI 26.2
[2022-04-07] MEDS ORDERED: MYLANTA SUSP PO ONE (23:54)
[2022-04-08 05:08] LABS: BASOPHILS % (AUTO) 0.6 % (0.0-3.0); EOSINOPHILS % (AUTO) 0.4 % (0.0-7.0); HEMOGLOBIN 7.4 g/dl (14.0-18.0); LYMPHOCYTES # (AUTO) 3.7 K/uL (0.60-3.4); LYMPHOCYTES % (AUTO) 69.7 (10.0-50.0); MEAN CORPUSCULAR HEMOGLOBIN 30.8 pg (27.0-31.0); MEAN CORPUSCULAR HGB CONC 32.2 (31.8-35.4); MEAN CORPUSCULAR VOLUME 95.8 fl (80.0-94.0); MONOCYTES # (AUTO) 0.3 K/uL (0.4-2.0); MONOCYTES % (AUTO) 6.4 (0-10); NEUTROPHILS # (AUTO) 1.2 K/ul (2.0-6.9); NEUTROPHILS % (AUTO) 22.9 % (42.2-75.2); PLATELET COUNT 189 10^3/uL (140-440); RDW COEFFICIENT OF VARIATION 21.5 % (11.6-14.8); WHITE BLOOD COUNT 5.31 K/ul (4.2-10.2)
[2022-04-08 05:23] LABS: ALBUMIN 3.19 g/dL (3.5-5.0); ALKALINE PHOSPHATASE 234.7 U/L (56-119); BILIRUBIN,TOTAL 0.99 mg/dL (0.2-1.3); BLOOD UREA NITROGEN 23.3 mg/dL (9-20); CALCIUM 7.69 mg/dL (8.4-10.2); CARBON DIOXIDE 24.7 mmol/L (22-30.0); CHLORIDE 105.5 mmol/L (98-107); CREATINE KINASE 115.1 U/L (55-170); CREATININE 1.51 mg/dL (0.60-1.10); POTASSIUM 3.75 mmol/L (3.5-5.1); SODIUM 136.6 mmol/L (134.5-145); TOTAL PROTEIN 6.81 g/dL (6.3-8.2)
[2022-04-08 05:32] LABS: TROPONIN I 0.014 ng/ml (0.0000-0.120)
[2022-04-08] MEDS: PROTONIX PO SCH ×2 (05:32→16:53)
[2022-04-08 05:36] LABS: HYPOCHROMASIA 3+ (NOT PRESENT)
[2022-04-08 05:37] LABS: ANISOCYTOSIS 3+ (NOT PRESENT)
[2022-04-08 05:38] LABS: CREATINE KINASE MB 1.36 ng/ml (0.0-2.38)
[2022-04-08] MEDS ORDERED: VITAMIN B-12 IM ONE (08:35)
--- NOTE | 2022-04-08 08:49 | PCM.PROG ---
Attending Provider: ATTENDING PROVIDER: Dr. PADMINI RODRIGUES This patient is seen with Ledy Palma, Nurse Practitioner. DATE OF SERVICE: 04/08/22 SUBJECTIVE: This 82 year old M was hospitalized 04/07/22. Fever up to 101 last night. Hgb up to 7.4 this morning. Declined blood transfusion. CT showed right upper lobe pneumonia, increase in right pericardial effusion. Renal function slightly increased. REVIEW OF SYSTEMS: CONSTITUTIONAL: No night sweats. Fatigue. No fever or chills. HEENT: Eyes: No visual changes. No eye pain. No eye discharge. ENT: No runny nose. No epistaxis. No sinus pain. No odynophagia. No congestion. RESPIRATORY: Cough, no congestion. No hemoptysis. Shortness of breath. CARDIOVASCULAR: No angina symptoms. No CHF symptoms. No atypical chest pain for CAD. No palpitations. No orthopnea.. GASTROINTESTINAL: No abdominal pain. No nausea or vomiting. No diarrhea or constipation. No hematemesis. No hematochezia. GENITOURINARY: No urgency. No frequency. No dysuria. No hematuria. No obstructive symptoms. No discharge. No pain. No significant abnormal bleeding. MUSCULOSKELETAL: No musculoskeletal pain; no joint swelling. NEUROLOGICAL: Awake, alert, oriented to time, place and person. No headache. No neck pain. No syncope. No seizures. No dizziness. PSYCHIATRIC: Not anxious. No depression. No suicidal thoughts. No homicidal thoughts. SKIN: No rash. No lesions. No wounds. ENDOCRINE: No unexplained weight loss. No weight gain. HEMATOLOGIC/LYMPHATIC: No anemia. No purpura. No petechiae. No prolonged or excessive bleeding. No palpable lymph nodes. PHYSICAL EXAMINATION: GENERAL: The patient is awake, alert and oriented, lying in bed in no distress. VITAL SIGNS: Temperature 98.2 F, Pulse 81, Respiratory Rate 19, BP 162/62, Pulse Ox 96% HEENT: Head normocephalic, atraumatic. Eyes: Extraocular muscles are intact. Pupils are equal, round and reactive to light and accommodation. Ears: No lesions. Nose appeared normal. Throat: No exudate or erythema. NECK: Supple. No JVD, no carotid bruit. No lymphadenopathy or thyromegaly. LUNGS: Severely diminished breath sounds. Clear to auscultation. Percussion not e normal. Chest symmetrical. HEART: S1, S2, no S3. No murmurs. No cyanosis or clubbing. No ascites. Pulses: Dorsalis pedis and posterior tibial pulses +1 to +2 both sides. ABDOMEN: Soft. Non-tender. Bowel sounds active. No CVA tenderness. No mass felt. EXTREMITIES: +1 leg edema. Full range of motion of all extremities, equal. NEUROLOGIC: No focal deficit. Cranial nerves II through XII are grossly intact. No headache. No double vision. SKIN: Not dry. Intact. Turgor-normal. LYMPHATIC: No palpable lymph nodes/no lymphedema. MUSCULOSKELETAL: Normal joints with no swelling. Muscle tone is normal. LAB REVIEW: 04/08/22 04:56 04/08/22 04:56 04/08/22 04:56: Blood Type B POSITIVE 04/08/22 04:56: Sodium 136.6, Potassium 3.75, Chloride 105.5, Carbon Dioxide 24.7, Anion Gap 10.15, BUN 23.3 H, Creatinine 1.51 H, Estimated GFR (MDRD) 44.00, BUN/Creatinine Ratio 15.43, Glucose 144.0 H, Calcium 7.69 L, Total Bilirubin 0.99, AST 44.0, ALT 11.0, Alkaline Phosphatase 234.7 H D, Total Creatine Kinase 115.1, CK-MB (CK-2) 1.360, CK-MB (CK-2) % 1.1800, Troponin I 0.014, Total Protein 6.81, Albumin 3.19 L, Globulin 3.62, Albumin/Globulin Ratio 0.88 04/08/22 04:56: WBC 5.31, RBC 2.40 L, Hgb 7.4 L, Hct 23.0 L, MCV 95.8 H, MCH 30.8, MCHC 32.2, RDW Coeff of Liza 21.5 H, Plt Count 189, Immature Gran % (Auto) 0.0, Neut % (Auto) 22.9 L, Lymph % (Auto) 69.7 H, [place] % (Auto) 6.4, Eos % (Auto) 0.4, Baso % (Auto) 0.6, Neut # (Auto) 1.2 L, Lymph # (Auto) 3.7 H, [place] # (Auto) 0.3 L, Eos # (Auto) 0.0, Baso # (Auto) 0.0, Immature Gran # (Auto) 0.0, Hypochromasia 3+, Anisocytosis 3+ 04/07/22 20:35: Adenovirus (PCR) Not detected, B. pertussis DNA (PCR) Not detected, B.parapertussis DNA PCR Not detected, C. pneumoniae DNA (PCR) Not detected, Coronavirus OC43 (PCR) Not detected, Coronavirus HKU1 (PCR) Not de tected, Coronavirus 229E (PCR) Not detected, Coronavirus NL63 (PCR) Not detected, Human Metapneumovir PCR Not detected, Influenza Type A (PCR) Not detected, Influenza B (RT-PCR) Not detected, M. pneumoniae (PCR) Not detected, Parainfluenza 1 (PCR) Not detected, Parainfluenza 2 (PCR) Not detected, [place] rainfluenza 3 (PCR) Not detected, Parainfluenza 4 (PCR) Not detected, RSV (PCR) Not detected, Entero/Rhino (PCR) Not detected, SARS-CoV-2 (PCR) Not detected 04/07/22 20:19: Puncture Site Rbrach, Base Excess 0.9, O2 Saturation 90.4 L, ABG pH 7.51 H*, ABG pCO2 30.0 L, ABG pO2 53.0 L*, ABG HCO3 23.9, ABG Total CO2 24.8 H, Mihir Test Pos, Hemoglobin 1.6 H, Oxyhemoglobin 90.2 L, Carboxyhemoglobin 3.3 H, Total Hemoglobin 7.7 L 04/07/22 20:15: Procalcitonin 0.11 H 04/07/22 20:15: Lactic Acid 0.77 04/07/22 20:15: Sodium 133.2 L, Potassium 3.81, Chloride 103.5, Carbon Dioxide 22.4, Anion Gap 11.11, BUN 22.8 H, Creatinine 1.49 H, Estimated GFR (MDRD) 45.00, BUN/Creatinine Ratio 15.30, Glucose 141.5 H, Calcium 7.64 L, Total Bilirubin 1.41 H, AST 46.8, ALT 12.5, Alkaline Phosphatase 266.1 H, Total Protein 7.03, Albumin 3.43 L, Globulin 3.60, Albumin/Globulin Ratio 0.95 04/07/22 20:15: WBC 5.03, RBC 2.33 L, Hgb 7.2 L, Hct 22.2 L, MCV 95.3 H, MCH 30.9, MCHC 32.4, RDW Coeff of Liza 21.6 H, Plt Count 197, Immature Gran % (Auto) 0.4, Neut % (Auto) 35.4 L, Lymph % (Auto) 58.8 H, [place] % (Auto) 4.8, Eos % (Auto) 0.2, Baso % (Auto) 0.4, Neut # (Auto) 1.8 L, Lymph # (Auto) 3.0, [place] # (Auto) 0.2 L, Eos # (Auto) 0.0, Baso # (Auto) 0.0, Immature Gran # (Auto) 0.0 04/07/22 19:30: Urine Color Yellow, Urine Clarity Clear, Urine pH 6.5, Ur Specific [place] 1.025, Urine Protein 3+ H, Urine Glucose (UA) Negative, Urine Ketones Negative, Urine Blood 2+ H, Urine Nitrite Negative, Urine Bilirubin Negative, Urine Urobilinogen 0.2, Ur Leukocyte Esterase Negative, Urine Microscopic RBC 5-10, Urine Microscopic WBC 2-5, Ur Squamous Epith Cells 2-5 ASSESSMENT: Please see below. 1. Right upper lobe pneumonia 2. Acute respiratory failure 3. Symptomatic anemia 4. Renal azotemia 5. Diabetes Mellitus type II PLAN: 1. Normal saline at 75aa 2. Anemia profile 3. 1cc B12 4. A1c Plan and coordination of the patient's care discussed in the presence of Electronic Equipment Maint Tech and nurse. SCRIBED BY: Aria GARCIA scribed while in presence of service performed by Dr. Rodrigues/Ledy Palma APRN on 04/08/22 ([id number])
[2022-04-08 08:53] LABS: IRON 47.6 ug/dL (49-181)
[2022-04-08] MEDS ORDERED: EMPAGLIFLOZIN PO SCH (09:00)
[2022-04-08] MEDS ORDERED: METFORMIN PO SCH (09:00)
[2022-04-08] MEDS ORDERED: INFUVITE ADULT 10 ML in SODIUM CHLORIDE 1,000 ML IV SCH ×2 (09:00→12:18)
[2022-04-08] MEDS ORDERED: LANTUS SUBCUT SCH (09:00)
[2022-04-08 09:01] LABS: ABSOLUTE RETICS # 0.1205; RETICULOCYTE % 5.02 %; RETICULOCYTE HEMOGLOBIN 32.7
[2022-04-08] MEDS ORDERED: INFUVITE ADULT IV ONE (09:45)
[2022-04-08 10:01] LABS: FOLATE 9.82 ng/mL
--- NOTE | 2022-04-08 10:44 | ECHO2D ---
Date of Exam: 04/08/2022 Ordering Physician: DR. PADMINI RODRIGUES Room #: 104 Reason for Echo: SOB, PERICARDIAL EFFUSION M-Mode Normal Adult Results LV Dimensions Normal Adult Results AoV Opening excursions >1.6 >1.6 LVEDD-base- 3.5-5.8 4.6 Ao root dimensions 2.0-3.7 3.7 LVESD-base- 3.1-4.6 L. Atrium dimensions 1.9-3.8 4.2 Post. Wall thickness 0.8-1.1 1.1 IV septum (thickness) 0.7-1.2 1.3 Post. Wall excursion 0.72-1.3 NORMAL Septal motion NORMAL Systolic motion R. Ventricular cavity 1.5-2.0 NORMAL LVEF 60% 63% Paradoxical septal wall motion NORMAL 2-D : MILD PERICARDIAL EFFUSION, NORMAL VALVES, NO THROMBUS, NORMAL LEFT VENTRICLE CONTRACTILITY--NORMAL LEFT VENTRICLE SIZE M-MODE: MV: NORMAL AV: NORMAL TV: NORMAL PV: CHAMBER SIZE: ENLARGED LEFT ATRIAL SIZE WALL MOTION: NORMAL PERICARDIUM: MILD PERICARDIAL EFFUSION --( 1 CM SEPARATION FROM PERICARDIUM TO MYOCARDIUM) INTERPRETATION: 1. LEFT VENTRICLE HYPERTROPHY 2. ENLARGED LEFT ATRIAL CAVITY 3. NORMAL LEFT VENTRICLE CONTRACTILITY AND SIZE OF LEFT VENTRICLE CAVITY 4. MILD PERICARDIAL EFFUSION MTDD
--- NOTE | 2022-04-08 13:04 | PN ---
DATE OF SERVICE: 04/07/22 ADMIT NOTE SUBJECTIVE: 82 year old white male came to the emergency room with cough, congestion, weakness and had fever of 101. Chest x-ray showed pneumonia. CBC showed anemia of chronic etiology. Atrial blood gasses showed respiratory failure with pO2 of 53. The patient tried to be transferred to [facility] but they were full. The patient was hospitalized with IV fluids. The patient declined any blood transfusion. Also declined any NEBS treatment or steroids. EKG shows sinus rhythm, No acute changes. CT scan of the chest showed pericardial effusion and pneumonia also showed mesenteric edema. ASSESSMENT: 1. Respiratory failure 2. Pneumonia 3. Chronic lung disease 4. Severe anemia, chronic likely myelodysplastic syndrome PLAN: 1. Start antibiotics Rocephin and Zithromax 2. The patient declined blood transfusion 3. The patient declined steroids 4. The patient declined NEBS treatment 5. IV fluids 6. Watch for fluid overload 7. Oxygen supplements 8. Telemetry 9. Monitor cardiac rhythm 10. Will do echo in the morning. 11. CT scan of the abdomen in the morning. 12. Anemia workup 13. Possible transfusion The patient has history of diabetic nephropathy and chronic anemia with history of GI bleed of unknown etiology. The patient's A1c is 5.6. PRBC lower limit of normal. PROGNOSIS: Guarded. TIME SPENT: More than 30 minutes. Plan and coordination of the patient's care discussed in the presence of nurse. KENNETH
--- NOTE | 2022-04-08 13:25 | PN ---
DATE OF SERVICE: 04/08/22 SUBJECTIVE: The patient's condition is more stable. His appetite seems to have improved some. He is afebrile, no distress noted. REVIEW OF SYSTEMS: CONSTITUTIONAL: No night sweats. No fatigue, malaise, lethargy. No fever or chills. HEENT: Eyes: No visual changes. No eye pain. No eye discharge. ENT: No runny nose. No epistaxis. No sinus pain. No sore throat. No odynophagia. No congestion. RESPIRATORY: No cough, no congestion. No hemoptysis. No shortness of breath. CARDIOVASCULAR: No angina symptoms. No CHF symptoms. No atypical chest pain for CAD. No palpitations. No PND. No orthopnea. GASTROINTESTINAL: No abdominal pain. No nausea or vomiting. No diarrhea or constipation. No hematemesis. No hematochezia. GENITOURINARY: No urgency. No frequency. No dysuria. No hematuria. No obstructive symptoms. No discharge. No pain. No significant abnormal bleeding. MUSCULOSKELETAL: No musculoskeletal pain; no joint swelling. NEUROLOGICAL: No headache. No neck pain. No syncope. No seizures. No dizziness. PSYCHIATRIC: Not anxious. No depression. No suicidal thoughts. No homicidal thoughts. SKIN: No rash. No lesions. No wounds. ENDOCRINE: No unexplained weight loss. No weight gain. HEMATOLOGIC/LYMPHATIC: No anemia. No purpura. No petechiae. No prolonged or excessive bleeding. No palpable lymph nodes. PHYSICAL EXAMINATION: HEENT: Head normocephalic, atraumatic. Eyes: Extraocular muscles are intact. Pupils are equal, round and reactive to light and accommodation. Ears: No lesions. Nose appeared normal. Throat: No exudate or erythema. NECK: Supple. No JVD, no carotid bruit. No lymphadenopathy or thyromegaly. LUNGS: Decreased breath sounds but clear to auscultation. Percussion note normal. Chest symmetrical. HEART: S1, S2, no S3. No murmurs. No cyanosis or clubbing. No ascites. Pulses: Dorsalis pedis and posterior tibial pulses +1 to +2 bilaterally. ABDOMEN: Soft. Nontender. Bowel sounds active. No CVA tenderness. No mass felt. EXTREMITIES: No edema. Full range of motion of all extremities, equal. NEUROLOGIC: No focal deficit. Cranial nerves II through XII are grossly intact. No headache. No double vision. SKIN: Not dry. Intact. Turgor - normal. LYMPHATIC: No palpable lymph nodes/no lymphedema. MUSCULOSKELETAL: Normal joints with no swelling. Muscle tone is normal. LABS: Echocardiogram showed mild pericardial effusion 1cm separation from pericardium to myocardium, normal LV contractility, borderline LVH, enlarged LA cavity. Cardiac function unchanged from the one that was done a few years ago. The patient's cardiovascular status is stable. PLAN: 1. The patient is going to have CT scan of the abdomen define more pictures of edema that has been noted in the mesenteric area with mild ascites. 2. Also do mycoplasma and Legionella titer. 3. The patient strongly advised to take transfusion. We will type and cross match 4. The patient wants to be transferred to [place]. We will call [place] and see for possible transferred. [facility] has been called. The patient doesn't want to go to [facility] 5. Continue antibiotics 6. Oxygen supplements 7. The patient declined any steroids 8. Anemia profile shows anemia chronic disorder. No active GI bleed noted. TIME SPENT: More than 30 minutes. Plan and coordination of the patient's care discussed in the presence of nurse. KENNETH
[2022-04-08 14:51] VITALS: BP 160/70; TEMP 99.8
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
--- NOTE | 2022-04-08 16:03 | DS ---
DATE OF SERVICE: 04/08/2022 FINAL DIAGNOSIS: 1. Acute right upper lobe pneumonia. 2. Acute respiratory failure. 3. Anemia, multifactorial. 4. Diabetes mellitues, Type 2. 5. Diabetic neuropathy. 6. Nephropathy with proteinuria. 7. Renal azotemia. 8. Pericardial effusion. DISCHARGE INSTRUCTIONS: Transfer to [facility]. HOSPITAL COURSE: This is an 82-year-old male who presented to the emergency room last night with cough, weakness, shortness of breath and fever. ABGs: p02 53, 02 sat of 90. He is now on 3L of oxygen via nasal cannula. CT of chest without contrast revealed right upper lobe pneumonia superimposed on emphysema. He does have a history of chronic anemia however hemoglobin is lower than normal at 7.2. Renal function was slightly increased with a BUN of 22 and a creatinine of 1.49. He was admitted, placed on Rocephin 1 gm Iv daily along with Zithromax 500 mg IV daily for 3 days. He initially declined IV fluids then agreed to Normal Saline with multivitamins at 75 cc/hr. He declined nebulizer treatments along with steroids. We did place him on incentive spirometry every four hours[address] also showed moderate pleural effusion which he has a history of. Dr. Joseph performed an echo this morning which showed trace physiologic pericardial effusion which is unchanged from prior. CT of the chest also revealed trace amount of perihepatic ascites and mesenteric edema. CT of the chest and abdomen with and without contrast were ordered and results are pending. He had a temperature of 102.2 in the emergency room, this morning again at 1:01, this afternoon at 99.5. He has been treated with Tylenol. Liver enzymes have been normal however alkaline phosphatase elevated was 266 on admission, 234 today. Respiratory panel was negative including Covid. This also included Mycoplasma which was negative. Sputum culture has been ordered and is pending. Blood cultures are pending. Urine showed 3+ protein along with 2+ blood. Due to the nature of his anemia, white count was 5.31. Hemoglobin 7.4, hematocrit 23 and platelets 189 this morning. Serum protein electrophoresis was ordered which is still pending along with 24-hour urine. We do believe he is experiencing some bone marrow suppression at this time to go with anemia of chronic disease along with infection contributing to anemia. Due to the nature of his condition and the fact that we do not have pulmonology or hematological support here at our facility, the patient is agreeable for transfer. Dr. Gallegos, Hospitalist at [facility] has agreed to accept the patient. We will send all of our records. Dr. Aranda is also in agreement. Two units of packed red blood cells have been ordered yet we are still waiting on lab to complete this order, they have not been administered yet. The reports from the CT of chest and CT of abdomen with contrast are still pending as well. We will send him to [facility] in stable but guarded condition. To be noted, there are no signs of active bleeding. He is again on IV antibiotics, IV fluids. Oxygen saturation is 98% on 3L via nasal cannula. We will continue to follow him as our patient after discharge from [facility]. TIME SPENT: More than 60 minutes. KENNETH
--- NOTE | 2022-04-08 16:31 | RS.SLPCNOT ---
Speech Case Note Date of Note: 04/18/22 Title: Speech consult Note: RESTAURANT SERVER unable to complete consult this date. Pt too lethargic at time of RESTAURANT SERVER assessment. Will attempt at later date. Thank you for this consult.
--- NOTE | 2022-04-08 18:00 | CT ---
EXAM: CT of the chest with and without contrast History: Short of breath Comparison: CT abdomen pelvis 04/08/2022, chest CT 04/07/2022 Technique: Multiplanar CT images through the thorax were obtained with and without the administratio n of IV contrast. Findings: Heart is mildly enlarged. Coronary calcifications. No change in the small to moderate pe ricardial effusion. No thoracic aortic aneurysm. No enlarged intrathoracic lymph nodes. Worsening ground-glass infiltrates within the right upper lung. Increasing small to moderate right pleural eff usion and new small left pleural effusion. No pneumothorax. Mild emphysema. No suspicious lung mas ses or lung nodules. For details in the upper abdomen, please see dedicated CT abdomen pelvis done on the same day. Stabl e left-sided rib fractures. Diffuse idiopathic skeletal hyperostosis of the thoracic spine. Impression: 1. Worsening right upper lung pneumonia. 2. Increasing small to moderate right pleural effusion and new small left pleural effusion. 3. Mild cardiomegaly and no change in the pericardial effusion. 4. Coronary artery disease 5. Mild emphysema All CT scans are performed using dose optimization techniques as appropriate to the performed exam an d include at least one of the following: Automated exposure control, adjustment of the mA and/or kV according t o size, and the use of iterative reconstruction technique.
--- NOTE | 2022-04-08 18:09 | CT ---
Exam: CT scan of the abdomen pelvis without and with intravenous contrast. Date: April 08 2022. Comparison: 03/16/2018. HISTORY: Ascites. TECHNIQUE: Helical scan of the abdomen pelvis was performed without and with intravenous contrast. FINDINGS: There is a moderate layering right pleural effusion and a very small layering left pleural effusion with associated dense consolidation involving the dependent portions of the lower lobes angela aterally. There is a four-chamber cardiac enlargement with moderate pericardial effusion. No acute osseous abnormality. There is small-volume ascites. The spleen and liver have a uniform enhancement. There is a stable 1 .5 x 0.8 cm simple cyst in the right lobe of the liver on image 27. Gallstones present. The stomach , pancreas and adrenal glands are normal. The kidneys have a normal enhancement morphology. No calc raúl or hydronephrosis. There are subcentimeter retroperitoneal and mesenteric lymph nodes. Aorta pardo s peripheral calcification and does not exceed 3 cm. There is nonspecific interstitial thickening of the omentum. The small bowel is normal. The appendix is not identified. There is a persistent loc ulated fluid collection in the right lateral abdomen at the level of the iliac crest that has decreas ed from 4.8 x 5.2 cm down to 3.6 x 2.5 cm. The colon, pelvic sidewall and bladder are normal. There is free fluid in the pelvis. The prostate measures 4.8 x 5.0 x 3.9 cm. The rectum and inguinal reg ions are normal. Impression: There is moderate right and smaller left layering pleural effusions with dense consolidat ion involving the dependent lower lobes bilaterally. Recommend correlation to exclude pneumonia. Small-volume ascites. Moderate pericardial effusion. If further evaluation is needed then echocardiography would be sugges jamey. Gallstones. Nonspecific interstitial thickening of the omentum; cannot exclude an inflammatory/infective/neoplast ic etiology. Persistent but smaller circumscribed fluid collection overlying the upper right iliac fossa. Mild prostatic enlargement. ASVD. All CT scans are performed using dose optimization techniques as appropriate to the performed exam an d include at least one of the following: Automated exposure control, adjustment of the mA and/or kV according t o size, and the use of iterative reconstruction technique.
[2022-04-08] MEDS ORDERED: ZITHROMAX 500 MG in SODIUM CHLORIDE 250 ML IV SCH (21:00)
[2022-04-08] MEDS ORDERED: ROCEPHIN 1 GM/50 ML D5W 1 GM/50 ML BAG IV SCH (21:00)
--- NOTE | 2022-04-10 10:37 | PN ---
DATE OF SERVICE: 04/08/22 SUBJECTIVE: The patient was hospitalized with double pneumonia, respiratory failure, severe anemia, dehydration and diabetes mellitus. The patient's condition had improved some today. His anemia is stable. No evidence of active GI bleed. The patient has agreed after long discussion to take transfusion. was present in the room. The patient's cardiovascular status is stable. Echocardiogram done today showed mild pericardial effusion which has increased some from the one that was done before, nearly a year ago. LV function is normal. LA cavity is borderline enlarged, valvular structures are normal. No evidence of CHF. The patient has proteinuria which is likely from diabetic nephropathy. REVIEW OF SYSTEMS: CONSTITUTIONAL: No night sweats. No fatigue, malaise, lethargy. No fever or chills. HEENT: Eyes: No visual changes. No eye pain. No eye discharge. ENT: No runny nose. No epistaxis. No sinus pain. No sore throat. No odynophagia. No congestion. RESPIRATORY: No cough, no congestion. No hemoptysis. No shortness of breath. CARDIOVASCULAR: No angina symptoms. No CHF symptoms. No atypical chest pain for CAD. No palpitations. No PND. No orthopnea. GASTROINTESTINAL: No abdominal pain. No nausea or vomiting. No diarrhea or constipation. No hematemesis. No hematochezia. GENITOURINARY: No urgency. No frequency. No dysuria. No hematuria. No obstructive symptoms. No discharge. No pain. No significant abnormal bleeding. MUSCULOSKELETAL: No musculoskeletal pain; no joint swelling. NEUROLOGICAL: No headache. No neck pain. No syncope. No seizures. No dizziness. PSYCHIATRIC: Not anxious. No depression. No suicidal thoughts. No homicidal thoughts. SKIN: No rash. No lesions. No wounds. ENDOCRINE: No unexplained weight loss. No weight gain. HEMATOLOGIC/LYMPHATIC: No anemia. No purpura. No petechiae. No prolonged or excessive bleeding. No palpable lymph nodes. PHYSICAL EXAMINATION: HEENT: Head normocephalic, atraumatic. Eyes: Extraocular muscles are intact. Pupils are equal, round and reactive to light and accommodation. Ears: No lesions. Nose appeared normal. Throat: No exudate or erythema. Pale. NECK: Supple. No JVD, no carotid bruit. No lymphadenopathy or thyromegaly. LUNGS: Decreased breath sounds but clear to auscultation. Percussion note normal. Chest symmetrical. HEART: S1, S2, no S3. No murmurs. No cyanosis or clubbing. No ascites. Pulses: Dorsalis pedis and posterior tibial pulses +1 to +2 bilaterally. ABDOMEN: Soft. Nontender. Bowel sounds active. No CVA tenderness. No mass felt. EXTREMITIES: No edema. Full range of motion of all extremities, equal. NEUROLOGIC: No focal deficit. Cranial nerves II through XII are grossly intact. No headache. No double vision. SKIN: Not dry. Intact. Turgor - better than yesterday. LYMPHATIC: No palpable lymph nodes/no lymphedema. MUSCULOSKELETAL: Normal joints with no swelling. Muscle tone is normal. ASSESSMENT: 1. Respirator failure with pneumonia 2. Chronic lung disease 3. 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 History of GI bleed source unknown, was extensively worked up a couple of years ago by [facility] and [facility] 5. Diabetes Mellitus 6. Diabetic nephropathy PLAN: 1. Given two units of packed red cells, the patient has agreed to 2. Rocephin and Zithromax. The patient is declining to take any third antibiotics. I would recommend Doxycycline 3. Oxygen supplement 4. Steroids, the patient declined 5. Continue IV fluids 6. CT of the abdomen with contrast to be done, patient agreed 7. CBC and CMP 8. Telemetry 9. Attempts again made to transfer the patient, [facility] accepted the patient but according to them it is going to be taking 2-3 days for him to be transferred. In the mean time every 12 hours they will be calling and checking on him. If there is a worsening of the patient's medical condition they maybe able to take him then. 10. In the meantime [facility] called and Dr. Gallegos accepted him. The patient is to be transferred. CONDITION: Stable PROGNOSIS: Guarded. THE PATIENT IS FULL CODE TIME SPENT: More than 30 minutes. Plan and coordination of the patient's care discussed in the presence of nurse. KENNETH
== END 2022-04-08 17:20 | disposition short-term general hospital (02) | DRG 193 ==
LOC: ED 19:02 → MEDSURG A 22:54
PROVIDERS: ADMIT Internal Medicine; ATTEND Internal Medicine

== ENCOUNTER 2022-07-02 01:42 | Inpatient (IN) ==
--- NOTE | 2022-07-02 01:52 | ED.PDOC ---
General ED Provider: Dr. ROSHAN BURKETT Chief Complaint: Fever Stated Complaint: Comes to the ER with fever for few days Temp 99F, Productive cough and shortness of breath. 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 He was told to come her for and mission and to get an Echo. He also states that he ran out his lasix and noticed that his legs are more swollen today. Also states that he tested positive for COVID 7 days ago Time Seen by Provider: 07/02/22 01:47 Mode of Arrival: Ambulance Information Source: Patient Primary Care Provider: PADMINI RODRIGUES Nursing and Triage Documentation Reviewed and Agree: Yes Does patient meet sepsis criteria?: No System Inflammatory Response Syndrome: Temp 101F or Greater Sepsis Protocol: For patient's 13 years and over: Temp is 96.8 and below OR 101 and greater Pulse >90 BPM Resp >20/minute Acutely Altered Mental Status Are patient's symptoms suggestive of a new infection, such as: -Pneumonia -Skin, Soft Tissue -Endocarditis -UTI -Bone, Joint Infection -Implantable Device -Acute Abdominal Infection -Wound Infection -Meningitis -Blood Stream Catheter Infection -Unknown Miscellaneous Complaint Exam Febrile Illness/Adult Complaint/Exam Onset/Duration: 1 day Symptoms Are: Still present Timing: Constant Initial Severity: Moderate Current Severity: Moderate Pseudomonas Risk Factors: Reports Repeat Antibx in 3 months Current Antibiotic Use: No Differential Diagnoses: Bacteremia and Pneumonia Quality Indicator For Non-Traumatic Chest Pain/Syncope: EKG Performed Review of Systems Review Of Systems Constitutional: Reports Fever Respiratory: Reports Cough and Short of air GI: Reports No symptoms : Reports No symptoms Musculoskeletal: Reports No symptoms Endocrine: Reports No symptoms Hematologic/Lymphatic: Reports No symptoms All Other Systems: Reviewed and Negative [facility] Medical History Diabetes Fall on concrete Head injury Hypertension Need for vaccination against Streptococcus pneumoniae using pneumococcal conjugate vaccine 13 Pneumonia Family History Other No known health problems Social History Smoking and tobacco status: Former smoker Physical Exam Physical Exam Appearance: Reports Ill-appearing Ill-appearing: Moderate Pain Distress: None Eyes: Reports SANKET, EOMI and Conjunctiva clear ENT: Reports Nose normal and Oropharynx normal Neck: Not Examined Respiratory: Reports Breath sounds diminished and Retractions (scattered ) Cardiovascular: Reports RRR, Pulses normal, No rub and No murmur GI/: Reports Soft, Nontender and No masses Musculoskeletal: Reports Normal strength and ROM intact Skin: Reports Warm and Dry Neurological: Reports Motor intact, Alert and Oriented Psychiatric: Reports Affect appropriate and Anxious Interpretation Radiology Interpretation Radiology Interpretation By: Radiologist Radiology Results: Positive (Cardiomegaly with pericardial effusion. Decreasing right pleural effusion with mild increasing left pleural effusion with adjacent bibasilar atelectasis and/or pneumonia. Emphysematous changes. Loculated pneumothorax anteriorly at the left lung base.) Exam Interpreted: CT Scan Physician Notification Case Discussed Physician Notified: [facility] Time of Notification: 04:11 (Declined due to capacity ) Critical Care Note Critical Care Note Total Critical Care Time (mins): 0 Course Course Hematology/Chemistry: 07/02/22 02:15 07/02/22 02:15 Orders, Labs, Meds: Lab Review 07/02/22 07/02/22 07/02/22 02:15 02:15 02:15 WBC 3.65 L RBC 2.19 L Hgb 7.3 L Hct 23.2 L MCV 105.9 H MCH 33.3 H MCHC 31.5 L RDW Coeff of Liza 23.9 H Plt Count 183 Immature Gran % (Auto) 0.8 Neut % (Auto) 51.8 Lymph % (Auto) 38.6 Bent % (Auto) 8.5 Eos % (Auto) 0.0 Baso % (Auto) 0.3 Neut # (Auto) 1.9 L Lymph # (Auto) 1.4 Bent # (Auto) 0.3 L Eos # (Auto) 0.0 Baso # (Auto) 0.0 Immature Gran # (Auto) 0.0 Polychromasia 1+ Hypochromasia 1+ Anisocytosis 3+ Macrocytosis 2+ Puncture Site Base Excess O2 Saturation ABG pH ABG pCO2 ABG pO2 ABG HCO3 ABG Total CO2 Mihir Test Hemoglobin Oxyhemoglobin Carboxyhemoglobin Total Hemoglobin FiO2 % Sodium 136.0 Potassium 4.29 Chloride 105.3 Carbon Dioxide 30.3 H Anion Gap 4.69 BUN 40.3 H Creatinine 1.28 H Estimated GFR (MDRD) 54.00 BUN/Creatinine Ratio 31.48 Glucose 132.0 H Lactic Acid Calcium 7.43 L Total Bilirubin 0.96 AST 48.6 ALT 24.1 Alkaline Phosphatase 112.1 Total Creatine Kinase 37.5 L Troponin I 0.045 NT-Pro-B Natriuret Pep 863.000 H Total Protein 5.49 L Albumin 2.74 L Globulin 2.75 Albumin/Globulin Ratio 0.99 Procalcitonin 0.06 H Urine Color Urine Clarity Urine pH Ur Specific [place] Urine Protein Urine Glucose (UA) Urine Ketones Urine Blood Urine Nitrite Urine Bilirubin Urine Urobilinogen Ur Leukocyte Esterase Urine Microscopic RBC Urine Microscopic WBC Ur Squamous Epith Cells Urine Bacteria Fine Granular Casts SARS-CoV-2 Ag (Rapid) 07/02/22 07/02/22 07/02/22 02:15 02:25 03:30 WBC RBC Hgb Hct MCV MCH MCHC RDW Coeff of Liza Plt Count Immature Gran % (Auto) Neut % (Auto) Lymph % (Auto) Bent % (Auto) Eos % (Auto) Baso % (Auto) Neut # (Auto) Lymph # (Auto) Bent # (Auto) Eos # (Auto) Baso # (Auto) Immature Gran # (Auto) Polychromasia Hypochromasia Anisocytosis Macrocytosis Puncture Site Rb Base Excess 5.4 H O2 Saturation 92.6 L ABG pH 7.47 H ABG pCO2 40.0 ABG pO2 61.0 L ABG HCO3 29.1 H ABG Total CO2 30.3 H Mihir Test + Hemoglobin 1.1 Oxyhemoglobin 88.1 L Carboxyhemoglobin 3.1 H Total Hemoglobin 12.2 FiO2 % 21.0 Sodium Potassium Chloride Carbon Dioxide Anion Gap BUN Creatinine Estimated GFR (MDRD) BUN/Creatinine Ratio Glucose Lactic Acid 1.10 Calcium Total Bilirubin AST ALT Alkaline Phosphatase Total Creatine Kinase Troponin I NT-Pro-B Natriuret Pep Total Protein Albumin Globulin Albumin/Globulin Ratio Procalcitonin Urine Color Urine Clarity Urine pH Ur Specific [place] Urine Protein Urine Glucose (UA) Urine Ketones Urine Blood Urine Nitrite Urine Bilirubin Urine Urobilinogen Ur Leukocyte Esterase Urine Microscopic RBC Urine Microscopic WBC Ur Squamous Epith Cells Urine Bacteria Fine Granular Casts SARS-CoV-2 Ag (Rapid) Positive H 07/02/22 04:15 WBC RBC Hgb Hct MCV MCH MCHC RDW Coeff of Liza Plt Count Immature Gran % (Auto) Neut % (Auto) Lymph % (Auto) Bent % (Auto) Eos % (Auto) Baso % (Auto) Neut # (Auto) Lymph # (Auto) Bent # (Auto) Eos # (Auto) Baso # (Auto) Immature Gran # (Auto) Polychromasia Hypochromasia Anisocytosis Macrocytosis Puncture Site Base Excess O2 Saturation ABG pH ABG pCO2 ABG pO2 ABG HCO3 ABG Total CO2 Mihir Test Hemoglobin Oxyhemoglobin Carboxyhemoglobin Total Hemoglobin FiO2 % Sodium Potassium Chloride Carbon Dioxide Anion Gap BUN Creatinine Estimated GFR (MDRD) BUN/Creatinine Ratio Glucose Lactic Acid Calcium Total Bilirubin AST ALT Alkaline Phosphatase Total Creatine Kinase Troponin I NT-Pro-B Natriuret Pep Total Protein Albumin Globulin Albumin/Globulin Ratio Procalcitonin Urine Color Yellow Urine Clarity Clear Urine pH 6.0 Ur Specific [place] 1.025 Urine Protein 3+ H Urine Glucose (UA) Negative Urine Ketones Negative Urine Blood 3+ H Urine Nitrite Negative Urine Bilirubin Negative Urine Urobilinogen 0.2 Ur Leukocyte Esterase Negative Urine Microscopic RBC 10-20 Urine Microscopic WBC 2-5 Ur Squamous Epith Cells 2-5 Urine Bacteria 1+ Fine Granular Casts 0-2 SARS-CoV-2 Ag (Rapid) Orders Category Date Time Status ABG DRAW REQUEST Stat CARDIO 07/02/22 01:48 Completed ECHOCARDIOGRAM 2D-M MODE Routine CARDIO 07/02/22 04:40 Ordered EKG-(ED ONLY) Stat CARDIO 07/02/22 01:48 Completed NEBULIZER TREATMENT Stat CARDIO 07/02/22 04:41 Ordered OXYGEN Routine CARDIO 07/02/22 04:40 Ordered ACTIVITY .Up With Assistance CARE 07/02/22 04:40 Ordered INTAKE & OUTPUT Q8HR CARE 07/02/22 04:41 Ordered VITAL SIGNS Q4HR CARE 07/02/22 04:41 Ordered VTE PREVENTION .SCD On AM/Off PM CARE 07/02/22 04:40 Ordered 2 GRAM SODIUM DIET DIETARY 07/02/22 Breakfast Ordered ED APPLY O2 .ONCE EMERGENCY 07/02/22 01:47 Active ED CASINO INVESTIGATOR APPLIED .ONCE EMERGENCY 07/02/22 01:47 Active ED VITAL SIGNS Q1HR EMERGENCY 07/02/22 01:47 Active ABG COOX Stat LAB 07/02/22 02:25 Completed BLOOD CULTURE (ED ONLY) Stat LAB 07/02/22 01:47 Ordered CBC W/ AUTO DIFF DAILY@0600 LAB 07/02/22 06:00 Ordered CBC W/ AUTO DIFF DAILY@0600 LAB 07/03/22 06:00 Ordered CBC W/ AUTO DIFF Stat LAB 07/02/22 02:15 Completed COMPREHENSIVE METABOLIC PANEL DAILY@0600 LAB 07/02/22 06:00 Ordered COMPREHENSIVE METABOLIC PANEL DAILY@0600 LAB 07/03/22 06:00 Ordered COMPREHENSIVE METABOLIC PANEL Stat LAB 07/02/22 02:15 Completed COVID-19 ANTIGEN TEST Stat LAB 07/02/22 03:30 Completed CREATINE KINASE Stat LAB 07/02/22 02:15 Completed LACTIC ACID Stat LAB 07/02/22 02:15 Completed NT-PROBNP Stat LAB 07/02/22 02:15 Completed PRBC Transfusion [PACKED CELLS] Stat LAB 07/02/22 04:44 Ordered PROCALCITONIN Stat LAB 07/02/22 02:15 Completed RBC MORPHOLOGY Stat LAB 07/02/22 02:15 Completed TROPONIN I Stat LAB 07/02/22 02:15 Completed TYPE AND SCREEN Stat LAB 07/02/22 04:44 Ordered URINALYSIS C & S IF INDICATED Stat LAB 07/02/22 04:15 Completed URINE CULTURE Stat LAB 07/02/22 04:15 Received 1 gm/200 ml IV Daily Demond MEDS 07/02/22 05:00 Ordered Vancomycin/Water For Inj (Peg) [Vancomycin 1 Gram/200 ml Premix] 1 gm in 200 ml IV DAILY Acetaminophen [Tylenol] MEDS 07/02/22 02:05 Discontinued 500 mg PO ONCE ONE Cefepime 1 gm Vial [Maxipime 1 gm Vial] 1 gm MEDS 07/02/22 04:44 Stop Req 0.9 % Sodium Chloride [Sodium Chloride] 50 ml IM ONCE Cefepime 1 gm Vial [Maxipime 1 gm Vial] 1 gm MEDS 07/02/22 05:00 Ordered 0.9 % Sodium Chloride [Sodium Chloride] 50 ml IV Q12HR Furosemide [Lasix] MEDS 07/02/22 04:44 Stat 20 mg IVP ONCE STA Insulin Glargine,Hum.rec.anlog [Lantus] MEDS 07/02/22 09:00 Ordered 10 unit SUBCUT DAILY Ipratropium/Albuterol Neb [Duoneb] MEDS 07/02/22 04:40 Stat 3 ml NEB ONCE STA Ondansetron HCl/Pf [Zofran 4 mg/2 ml] MEDS 07/02/22 04:40 Ordered 4 mg IVP Q6H PRN Pantoprazole Sodium [Protonix] MEDS 07/02/22 09:00 Ordered 40 mg PO DAILY Pantoprazole Sodium [Protonix] MEDS 07/02/22 09:00 Ordered 40 mg PO DAILY Zolpidem Tartrate [Ambien] MEDS 07/02/22 05:00 Ordered 10 mg PO QHS RESUSCITATION STATUS Routine OTHERS 07/02/22 04:[address] CHEST W/O CONTRAST Stat RADS 07/02/22 01:48 Completed Medications Generic Name Dose Route Start Last Admin Trade Name Freq PRN Reason Stop Dose Admin Albuterol/Ipratropium 3 ml 07/02/22 04:40 Ipratropium/Albuterol Vial.Neb NEB 07/02/22 04:41 ONCE STA Furosemide 20 mg 07/02/22 04:44 Furosemide Inj 20 Mg/2 Ml Vial IVP 07/02/22 04:45 ONCE STA VANCOMYCIN/WATER FOR INJ (PEG) 1 gm in 200 mls @ 200 mls/hr 07/02/22 05:00 Vancomycin 1 Gram/200 Ml Premix IV 07/05/22 04:59 DAILY DEMOND Cefepime HCl 1 gm/ Sodium 50 mls @ 50 mls/hr 07/02/22 04:44 Chloride IM 07/02/22 05:43 ONCE STA Cefepime HCl 1 gm/ Sodium 50 mls @ 50 mls/hr 07/02/22 05:00 Chloride IV 07/05/22 04:59 Q12HR [facility] Insulin Glargine 10 unit 07/02/22 09:00 Insulin Glargine,Hum.Rec.Anlog 100 Units/Ml SUBCUT DAILY [facility] Ondansetron HCl 4 mg 07/02/22 04:40 Ondansetron Hcl/Pf 4 Mg/2 Ml Sdv IVP Q6H PRN Nausea / Vomiting Pantoprazole Sodium 40 mg 07/02/22 09:00 Pantoprazole Sodium 40 Mg Tablet. PO DAILY [facility] Pantoprazole Sodium 40 mg 07/02/22 09:00 Pantoprazole Sodium 40 Mg Tablet. PO DAILY [facility] Zolpidem Tartrate 10 mg 07/02/22 05:00 Zolpidem Tartrate 5 Mg Tablet PO QHS DEMOND Discontinued Medications Generic Name Dose Route Start Last Admin Trade Name Freq PRN Reason Stop Dose Admin Acetaminophen 500 mg 10/12/22 02:05 07/02/22 02:24 Acetaminophen 500 Mg Tablet PO 07/02/22 02:06 500 mg ONCE ONE Administration Vital Signs: Temp Pulse Resp BP Pulse Ox 07/02/22 03:13 98.7 F 87 18 160/75 H 100 07/02/22 01:42 100.8 F H 93 14 156/59 H 97 Discharge Plan Discharge Patient Disposition: ADMITTED INPATIENT Discharge Problem: Anemia, COVID-19, Pleural effusion associated with pulmonary infection, Bilateral lower extremity edema Did you review [place] STITCHER TAPE CONTROLLED MACHINE?: Not Applicable ED Provider: ROSHAN BURKETT Condition: Fair Physician Progress Note: []
[2022-07-02] MEDS ORDERED: TYLENOL PO ONE (02:05)
[2022-07-02 02:19] LABS: BASOPHILS % (AUTO) 0.3 % (0.0-3.0); HEMATOCRIT 23.2 % (42.0-52.0); HEMOGLOBIN 7.3 g/dl (14.0-18.0); IMMATURE GRANULOCYTE % (AUTO) 0.8 % (0.0-5.0); LYMPHOCYTES # (AUTO) 1.4 K/uL (0.60-3.4); LYMPHOCYTES % (AUTO) 38.6 (10.0-50.0); MEAN CORPUSCULAR HEMOGLOBIN 33.3 pg (27.0-31.0); MEAN CORPUSCULAR HGB CONC 31.5 (31.8-35.4); MEAN CORPUSCULAR VOLUME 105.9 fl (80.0-94.0); MONOCYTES # (AUTO) 0.3 K/uL (0.4-2.0); MONOCYTES % (AUTO) 8.5 (0-10); NEUTROPHILS # (AUTO) 1.9 K/ul (2.0-6.9); NEUTROPHILS % (AUTO) 51.8 % (42.2-75.2); PLATELET COUNT 183 10^3/uL (140-440); RDW COEFFICIENT OF VARIATION 23.9 % (11.6-14.8); RED BLOOD COUNT 2.19 10^6/ul (4.70-6.10); WHITE BLOOD COUNT 3.65 K/ul (4.2-10.2)
[2022-07-02 02:30] LABS: ABG O2 HGB 88.1 % (95-100); ABG PH 7.47 (7.35-7.45); BEecf 5.4 (-2.0-3.0); COHb 3.1 (0.5-1.5); HCO3 29.1 (21-28); MetHb 1.1 (0-1.5); TCO2 30.3 (19-24); sO2 92.6 % (94-98); tHb 12.2 g/dl (11.7-17.4)
[2022-07-02 02:32] LABS: ALANINE AMINOTRANSFERASE 24.1 U/L (0-50); ALBUMIN 2.74 g/dL (3.5-5.0); ALKALINE PHOSPHATASE 112.1 U/L (56-119); ASPARTATE AMINO TRANSFERASE 48.6 U/L (17-59); BILIRUBIN,TOTAL 0.96 mg/dL (0.2-1.3); BLOOD UREA NITROGEN 40.3 mg/dL (9-20); CALCIUM 7.43 mg/dL (8.4-10.2); CARBON DIOXIDE 30.3 mmol/L (22-30.0); CHLORIDE 105.3 mmol/L (98-107); CREATINE KINASE 37.5 U/L (55-170); CREATININE 1.28 mg/dL (0.60-1.10); POTASSIUM 4.29 mmol/L (3.5-5.1); TOTAL PROTEIN 5.49 g/dL (6.3-8.2)
--- NOTE | 2022-07-02 02:40 | CT ---
EXAM: CT scan chest without contrast HISTORY: Cough, weakness COMPARISON: CT scan chest 04/08/2022 FINDINGS: Helically acquired axial images obtained through the thorax utilizing 5-mm collimation. S agittal and coronal reconstructions were imaged and reviewed. The thoracic inlet is unremarkable. H eart is age. There is a moderate sized pericardial effusion measuring one point 5 cm. There is chris nary artery calcification. There is no mediastinal lymphadenopathy.. There are emphysematous change s. Stable scarring/atelectasis anteriorly at the left lung base. Slight decrease in right pleural e ffusion with mild increase in the small left pleural effusion. There is adjacent atelectasis and/or pneumonia... 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 There is perihepatic ascites. Gallstones are noted w ithin the visualized gallbladder. IMPRESSION: Cardiomegaly with pericardial effusion. Decreasing right pleural effusion with mild increasing left pleural effusion with adjacent bibasilar atelectasis and/or pneumonia. Emphysematous changes. Loculated pneumothorax anteriorly at the left lung base. All CT scans are performed using dose optimization techniques as appropriate to the performed exam an d include at least one of the following: Automated exposure control, adjustment of the mA and/or kV according t o size, and the use of iterative reconstruction technique.
[2022-07-02 02:44] LABS: TROPONIN I 0.045 ng/ml (0.0000-0.120)
[2022-07-02 03:03] LABS: HYPOCHROMASIA 1+ (NOT PRESENT); POLYCHROMASIA 1+ (NOT PRESENT)
[2022-07-02 03:04] LABS: ANISOCYTOSIS 3+ (NOT PRESENT)
[2022-07-02 04:24] LABS: BILIRUBIN,URINE Negative (NEGATIVE); CLARITY,URINE Clear (CLEAR); COLOR,URINE Yellow (YELLOW); GLUCOSE, URINE (UA) Negative (NEGATIVE); KETONES,URINE Negative (NEGATIVE); LEUKOCYTE ESTERASE ,URINE Negative (NEGATIVE); NITRITE,URINE Negative (NEGATIVE); PROTEIN,URINE 3+ (NEGATIVE); URINE, BLOOD 3+ (NEGATIVE); UROBILINOGEN,URINE 0.2 (0.2)
[2022-07-02 04:32] LABS: BACTERIA,URINE 1+ (NOT PRESENT); FINE GRANULAR CASTS,URINE 0-2 (NOT PRESENT)
[2022-07-02] MEDS ORDERED: ZOFRAN 4 MG/2 ML IVP PRN (04:40)
[2022-07-02] MEDS ORDERED: DUONEB NEB STA (04:40)
[2022-07-02] MEDS ORDERED: LASIX IVP STA (04:44)
[2022-07-02] MEDS ORDERED: MAXIPIME 1 GM VIAL 1 GM in SODIUM CHLORIDE 50 ML IM STA (04:44)
[2022-07-02] MEDS ORDERED: AMBIEN PO SCH (05:00)
[2022-07-02] MEDS ORDERED: MAXIPIME IV SCH (05:00)
[2022-07-02] MEDS ORDERED: SODIUM CHLORIDE IV SCH (05:00)
[2022-07-02] MEDS ORDERED: VANCOMYCIN 1 GRAM/200 ML PREMIX 1 GM/200 ML BAG IV SCH (05:00)
--- NOTE | 2022-07-02 05:08 | ECHO2D ---
Date of Exam: 07/02/2022 Ordering Physician: DR. PADMINI RODRIGUES Room #: ED Reason for Echo: PERICARDIAL EFFUSION, COVID POSITIVE M-Mode Normal Adult Results LV Dimensions Normal Adult Results AoV Opening excursions >1.6 >1.6 LVEDD-base- 3.5-5.8 4.7 Ao root dimensions 2.0-3.7 3.4 LVESD-base- 3.1-4.6 L. Atrium dimensions 1.9-3.8 4.1 Post. Wall thickness 0.8-1.1 1.1 IV septum (thickness) 0.7-1.2 1.3 Post. Wall excursion 0.72-1.3 NORMAL Septal motion NORMAL Systolic motion R. Ventricular cavity 1.5-2.0 NORMAL LVEF 60% 76% Paradoxical septal wall motion NORMAL 2-D : ENLARGED LEFT ATRIAL CAVITY, MILD TO MODERATE PERICARDIAL EFFUSION, NORMAL VALVES--NO THROMBUS, NORMAL LEFT VENTRICLE SIZE AND LEFT VENTRICLE CONTRACTILITY COLOR FLOW: MODERATE TRICUSPID REGURGITATION AND MITRAL REGURGITATION M-MODE: MV: NORMAL AV: NORMAL TV: NORMAL PV: CHAMBER SIZE: ENLARGED LEFT ATRIAL CAVITY WALL MOTION: NORMAL PERICARDIUM: MILD TO MODERATE PERICARDIAL EFFUSION (1.5 CM SEPARATION IN LEFT PARASTERNAL LONG AXIS VIEW) INTERPRETATION: 1. LEFT VENTRICLE HYPERTROPHY WITH ENLARGED LEFT ATRIAL CAVITY 2. NORMAL LEFT VENTRICLE SIZE AND LEFT VENTRICLE CONTRACTILITY 3. VALVES--NORMAL 4. MILD TO MODERATE PERICARDIAL EFFUSION (INCREASED FROM 04/08/22 EXAM) MTDD
[2022-07-02] MEDS ORDERED: VANCOMYCIN 1.5 GRAM/300 ML PREMIX 1.5 GM/300 ML BAG IV ONE (05:30)
[2022-07-02 06:09] LABS: BASOPHILS % (AUTO) 0.5 % (0.0-3.0); EOSINOPHILS % (AUTO) 0.3 % (0.0-7.0); HEMATOCRIT 24.8 % (42.0-52.0); HEMOGLOBIN 7.7 g/dl (14.0-18.0); IMMATURE GRANULOCYTE % (AUTO) 0.5 % (0.0-5.0); LYMPHOCYTES # (AUTO) 1.6 K/uL (0.60-3.4); LYMPHOCYTES % (AUTO) 43.6 (10.0-50.0); MEAN CORPUSCULAR HEMOGLOBIN 32.8 pg (27.0-31.0); MEAN CORPUSCULAR VOLUME 105.5 fl (80.0-94.0); MONOCYTES # (AUTO) 0.3 K/uL (0.4-2.0); MONOCYTES % (AUTO) 8.3 (0-10); NEUTROPHILS # (AUTO) 1.8 K/ul (2.0-6.9); NEUTROPHILS % (AUTO) 46.8 % (42.2-75.2); PLATELET COUNT 212 10^3/uL (140-440); RDW COEFFICIENT OF VARIATION 24.2 % (11.6-14.8); RED BLOOD COUNT 2.35 10^6/ul (4.70-6.10); WHITE BLOOD COUNT 3.74 K/ul (4.2-10.2)
[2022-07-02] MEDS ORDERED: VANCOMYCIN 1 GRAM/200 ML PREMIX 1 GM/200 ML BAG IV ONE (06:10)
[2022-07-02] MEDS: VANCOMYCIN IV ONE ×2 (06:18→10:17)
[2022-07-02 06:23] LABS: ALANINE AMINOTRANSFERASE 23.8 U/L (0-50); ALBUMIN 2.75 g/dL (3.5-5.0); ALKALINE PHOSPHATASE 118.1 U/L (56-119); ASPARTATE AMINO TRANSFERASE 38.3 U/L (17-59); BILIRUBIN,TOTAL 1.02 mg/dL (0.2-1.3); BLOOD UREA NITROGEN 40.2 mg/dL (9-20); CALCIUM 7.44 mg/dL (8.4-10.2); CARBON DIOXIDE 29.1 mmol/L (22-30.0); CHLORIDE 106.1 mmol/L (98-107); CREATININE 1.2 mg/dL (0.60-1.10); GLUCOSE 116.3 mg/dL (74-106); POTASSIUM 4.24 mmol/L (3.5-5.1); SODIUM 136.1 mmol/L (134.5-145); TOTAL PROTEIN 5.47 g/dL (6.3-8.2)
[2022-07-02 06:35] LABS: ANISOCYTOSIS 3+ (NOT PRESENT)
[2022-07-02 08:43] VITALS: BMI 27.0
[2022-07-02] MEDS ORDERED: VANCOMYCIN 1.25 GM/250 ML BAG 1.25 GM/250 ML BAG IV SCH (09:00)
[2022-07-02] MEDS ORDERED: PROTONIX PO SCH ×2 (09:00)
[2022-07-02] MEDS ORDERED: MAXIPIME 2 GM/50 ML D5W 2 GM/50 ML BAG IV SCH (09:00)
[2022-07-02] MEDS ORDERED: MUCINEX PO SCH (09:00)
[2022-07-02] MEDS ORDERED: LANTUS SUBCUT SCH (09:00)
[2022-07-02] MEDS ORDERED: PREDNISONE PO SCH (09:00)
[2022-07-02] MEDS ORDERED: TUSSIONEX PO PRN ×2 (10:10→10:30)
[2022-07-02 14:06] VITALS: BP 145/63; TEMP 98.6
[2022-07-02] MEDS ORDERED: LASIX IVP ONE (14:07)
[2022-07-02 15:21] LABS: HEMATOCRIT 26.5 % (42.0-52.0); HEMOGLOBIN 8.6 g/dl (14.0-18.0)
--- NOTE | 2022-07-02 22:18 | PCM.DC ---
Final Diagnosis: Acute on chronic anemia. CHF exacerbation. Recent COVID infection. Physical Exam Appearance: Ill-appearing Ill-appearing: Mild Pain Distress: None Eyes: SANKET ENT: Oropharynx normal Neck: Supple Respiratory: Airway patent and Breath sounds diminished Cardiovascular: RRR and Pulses normal GI/: Soft and Nontender Musculoskeletal: Limited ROM and Limited strength Skin: Warm and Dry Neurological: Sensation intact, Motor intact and Alert Psychiatric: Affect appropriate and Mood appropriate (1) Anemia: Status: Acute Code(s): D64.9 - Anemia, unspecified SNOMED Code(s): 661077708 (2) COVID-19: Status: Acute Code(s): U07.1 - COVID-19 SNOMED Code(s): 751779938 (3) CHF (congestive heart failure): Status: Acute Code(s): I50.9 - Heart failure, unspecified SNOMED Code(s): 36868438 Reason for Hospitalization: Acute on chronic anemia exacerbation. CHF exacerbation. Prognosis/Condition at Discharge: Fair. Stable. Medications at Discharge: Medications at Discharge (Home Meds & RX) pantoprazole 40 mg tablet,delayed release 40 mg PO DAILY 07/22/21 pantoprazole 40 mg tablet,delayed release 40 mg PO DAILY PRN HEARTBURN/INDIGESTION 07/22/21 insulin glargine 100 unit/mL (3 mL) subcutaneous pen (Basaglar KwikPen U-100 Insulin) 10 unit subcut DAILY 04/07/22 zolpidem 10 mg tablet 10 mg PO QHS 04/07/22 prednisone 10 mg tablet 30 mg PO DAILY 06/27/22 guaifenesin 600 mg tablet, extended release 12 hr (Mucinex) 600 mg PO Q12H #10 tabs 07/02/22 hydrocodone 10 mg-chlorpheniramine 8 mg/5 mL oral susp extend.rel 12hr 5 ml PO Q12H PRN Cough #115 mL 07/02/22 Lab/Diagnostics: Laboratory Tests 07/02/22 07/02/22 07/02/22 02:15 02:15 02:15 WBC 3.65 L RBC 2.19 L Hgb 7.3 L Hct 23.2 L MCV 105.9 H MCH 33.3 H MCHC 31.5 L RDW Coeff of Liza 23.9 H Plt Count 183 Immature Gran % (Auto) 0.8 Neut % (Auto) 51.8 Lymph % (Auto) 38.6 [place] % (Auto) 8.5 Eos % (Auto) 0.0 Baso % (Auto) 0.3 Neut # (Auto) 1.9 L Lymph # (Auto) 1.4 [place] # (Auto) 0.3 L Eos # (Auto) 0.0 Baso # (Auto) 0.0 Immature Gran # (Auto) 0.0 Polychromasia 1+ Hypochromasia 1+ Anisocytosis 3+ Macrocytosis 2+ Puncture Site Base Excess O2 Saturation ABG pH ABG pCO2 ABG pO2 ABG HCO3 ABG Total CO2 Mihir Test Hemoglobin Oxyhemoglobin Carboxyhemoglobin Total Hemoglobin FiO2 % Sodium 136.0 Potassium 4.29 Chloride 105.3 Carbon Dioxide 30.3 H Anion Gap 4.69 BUN 40.3 H Creatinine 1.28 H Estimated GFR (MDRD) 54.00 BUN/Creatinine Ratio 31.48 Glucose 132.0 H Lactic Acid Calcium 7.43 L Total Bilirubin 0.96 AST 48.6 ALT 24.1 Alkaline Phosphatase 112.1 Total Creatine Kinase 37.5 L Troponin I 0.045 NT-Pro-B Natriuret Pep 863.000 H Total Protein 5.49 L Albumin 2.74 L Globulin 2.75 Albumin/Globulin Ratio 0.99 Procalcitonin 0.06 H Urine Color Urine Clarity Urine pH Ur Specific [place] Urine Protein Urine Glucose (UA) Urine Ketones Urine Blood Urine Nitrite Urine Bilirubin Urine Urobilinogen Ur Leukocyte Esterase Urine Microscopic RBC Urine Microscopic WBC Ur Squamous Epith Cells Urine Bacteria Fine Granular Casts SARS-CoV-2 Ag (Rapid) Blood Type Antibody Screen Crossmatch (AHG) 07/02/22 07/02/22 07/02/22 02:15 02:25 03:30 WBC RBC Hgb Hct MCV MCH MCHC RDW Coeff of Liza Plt Count Immature Gran % (Auto) Neut % (Auto) Lymph % (Auto) [place] % (Auto) Eos % (Auto) Baso % (Auto) Neut # (Auto) Lymph # (Auto) [place] # (Auto) Eos # (Auto) Baso # (Auto) Immature Gran # (Auto) Polychromasia Hypochromasia Anisocytosis Macrocytosis Puncture Site Rb Base Excess 5.4 H O2 Saturation 92.6 L ABG pH 7.47 H ABG pCO2 40.0 ABG pO2 61.0 L ABG HCO3 29.1 H ABG Total CO2 30.3 H Mihir Test + Hemoglobin 1.1 Oxyhemoglobin 88.1 L Carboxyhemoglobin 3.1 H Total Hemoglobin 12.2 FiO2 % 21.0 Sodium Potassium Chloride Carbon Dioxide Anion Gap BUN Creatinine Estimated GFR (MDRD) BUN/Creatinine Ratio Glucose Lactic Acid 1.10 Calcium Total Bilirubin AST ALT Alkaline Phosphatase Total Creatine Kinase Troponin I NT-Pro-B Natriuret Pep Total Protein Albumin Globulin Albumin/Globulin Ratio Procalcitonin Urine Color Urine Clarity Urine pH Ur Specific [place] Urine Protein Urine Glucose (UA) Urine Ketones Urine Blood Urine Nitrite Urine Bilirubin Urine Urobilinogen Ur Leukocyte Esterase Urine Microscopic RBC Urine Microscopic WBC Ur Squamous Epith Cells Urine Bacteria Fine Granular Casts SARS-CoV-2 Ag (Rapid) Positive H Blood Type Antibody Screen Crossmatch (AHG) 07/02/22 07/02/22 07/02/22 04:15 06:00 06:00 WBC 3.74 L RBC 2.35 L Hgb 7.7 L Hct 24.8 L MCV 105.5 H MCH 32.8 H MCHC 31.0 L RDW Coeff of Liza 24.2 H Plt Count 212 Immature Gran % (Auto) 0.5 Neut % (Auto) 46.8 Lymph % (Auto) 43.6 [place] % (Auto) 8.3 Eos % (Auto) 0.3 Baso % (Auto) 0.5 Neut # (Auto) 1.8 L Lymph # (Auto) 1.6 [place] # (Auto) 0.3 L Eos # (Auto) 0.0 Baso # (Auto) 0.0 Immature Gran # (Auto) 0.0 Polychromasia Hypochromasia Anisocytosis 3+ Macrocytosis 2+ Puncture Site Base Excess O2 Saturation ABG pH ABG pCO2 ABG pO2 ABG HCO3 ABG Total CO2 Mihir Test Hemoglobin Oxyhemoglobin Carboxyhemoglobin Total Hemoglobin FiO2 % Sodium Potassium Chloride Carbon Dioxide Anion Gap BUN Creatinine Estimated GFR (MDRD) BUN/Creatinine Ratio Glucose Lactic Acid Calcium Total Bilirubin AST ALT Alkaline Phosphatase Total Creatine Kinase Troponin I NT-Pro-B Natriuret Pep Total Protein Albumin Globulin Albumin/Globulin Ratio Procalcitonin Urine Color Yellow Urine Clarity Clear Urine pH 6.0 Ur Specific [place] 1.025 Urine Protein 3+ H Urine Glucose (UA) Negative Urine Ketones Negative Urine Blood 3+ H Urine Nitrite Negative Urine Bilirubin Negative Urine Urobilinogen 0.2 Ur Leukocyte Esterase Negative Urine Microscopic RBC 10-20 Urine Microscopic WBC 2-5 Ur Squamous Epith Cells 2-5 Urine Bacteria 1+ Fine Granular Casts 0-2 SARS-CoV-2 Ag (Rapid) Blood Type B POSITIVE Antibody Screen Negative Crossmatch (AHG) See Detail 07/02/22 07/02/22 06:00 15:14 WBC RBC Hgb 8.6 L Hct 26.5 L MCV MCH MCHC RDW Coeff of Liza Plt Count Immature Gran % (Auto) Neut % (Auto) Lymph % (Auto) [place] % (Auto) Eos % (Auto) Baso % (Auto) Neut # (Auto) Lymph # (Auto) [place] # (Auto) Eos # (Auto) Baso # (Auto) Immature Gran # (Auto) Polychromasia Hypochromasia Anisocytosis Macrocytosis Puncture Site Base Excess O2 Saturation ABG pH ABG pCO2 ABG pO2 ABG HCO3 ABG Total CO2 Mihir Test Hemoglobin Oxyhemoglobin Carboxyhemoglobin Total Hemoglobin FiO2 % Sodium 136.1 Potassium 4.24 Chloride 106.1 Carbon Dioxide 29.1 Anion Gap 5.14 BUN 40.2 H Creatinine 1.20 H Estimated GFR (MDRD) 58.00 BUN/Creatinine Ratio 33.50 Glucose 116.3 H Lactic Acid Calcium 7.44 L Total Bilirubin 1.02 AST 38.3 ALT 23.8 Alkaline Phosphatase 118.1 Total Creatine Kinase Troponin I NT-Pro-B Natriuret Pep Total Protein 5.47 L Albumin 2.75 L Globulin 2.72 Albumin/Globulin Ratio 1.01 Procalcitonin Urine Color Urine Clarity Urine pH Ur Specific [place] Urine Protein Urine Glucose (UA) Urine Ketones Urine Blood Urine Nitrite Urine Bilirubin Urine Urobilinogen Ur Leukocyte Esterase Urine Microscopic RBC Urine Microscopic WBC Ur Squamous Epith Cells Urine Bacteria Fine Granular Casts SARS-CoV-2 Ag (Rapid) Blood Type Antibody Screen Crossmatch (AH) c: PADMINI RODRIGUES MD; ROSHAN BURKETT MD EXAM: CT scan chest without contrast HISTORY: Cough, weakness COMPARISON: CT scan chest 04/08/2022 FINDINGS: Helically acquired axial images obtained through the thorax utilizing 5-mm collimation. Sagittal and coronal reconstructions were imaged and reviewed. The thoracic inlet is unremarkable. Heart is age. There is a moderate sized pericardial effusion measuring one point 5 cm. There is coronary artery calcification. There is no mediastinal lymphadenopathy.. There are emphysematous changes. Stable scarring/atelectasis anteriorly at the left lung base. Slight decrease in right pleural effusion with mild increase in the small left pleural effusion. There is adjacent atelectasis and/or pneumonia... There is a loculated pneumothorax anteriorly at the left lung base measuring 6.1 x 3.0 cm DISH is noted throughout the thoracic spine.. There is perihepatic ascites. Gallstones are noted within the visualized gallbladder. IMPRESSION: Cardiomegaly with pericardial effusion. Decreasing right pleural effusion with mild increasing left pleural effusion with adjacent bibasilar atelectasis and/or pneumonia. Emphysematous changes. Loculated pneumothorax anteriorly at the left lung base. All CT scans are performed using dose optimization techniques as appropriate to the performed exam and include at least one of the following: Automated exposure control, adjustment of the mA and/or kV according to size, and the use of iterative reconstruction technique. Education Provided to Patient and Family: Per RN Follow-ups: Dr. Jake arce. [place] metal sponge making machine operator as planned. Discharge Disposition: Home Hospital Course: Acute on chronic anemia. Source being investigated by a metal sponge making machine operator at [place]. Transfused one unit prbc, Hb 8.6 at d/c. Acute on chronic CHF, he had not taken his daily lasix in about 3 days when admitted. Diuresed in ED and after admit. Recent COVID dx, he did an IV outpatient tx for that. He requested d/c after transfusion. Did not request antibiotic, CT somewhat difficult to clinically assess. Unclear if need for abx or not. See Dr. Rodrigues. This discharge done with a [id number] exam, total 30 minutes. Plan: Resume home med. Recheck with Dr. Rodrigues and [place] metal sponge making machine operator.
== END 2022-07-02 18:15 | disposition home or self-care (01) | DRG 811 ==
LOC: ED 01:42 → SCU 05:19
PROVIDERS: ADMIT Internal Medicine Geriatric Medicine; ATTEND Internal Medicine Geriatric Medicine
DX: R60.0 Localized edema; J91.8 Pleural effusion in other conditions classified elsewhere; J18.9 Pneumonia, unspecified organism; U07.1 COVID-19; I50.9 Heart failure, unspecified; D64.9 Anemia, unspecified; Z51.81 Encounter for therapeutic drug level monitoring; Z79.899 Other long term (current) drug therapy

== ENCOUNTER 2022-07-22 12:22 | Inpatient (IN) ==
[2022-07-22] MEDS ORDERED: ATROPINE SULFATE PFS IVP PRN (12:31)
[2022-07-22] MEDS ORDERED: TYLENOL PO PRN (12:31)
[2022-07-22] MEDS ORDERED: NITROSTAT SL PRN (12:31)
[2022-07-22 12:47] VITALS: BMI 27.8
[2022-07-22] MEDS: TESSALON PERLES PO SCH ×2 (13:26→20:31)
[2022-07-22] MEDS ORDERED: LASIX IVP ONE (14:00)
[2022-07-22] MEDS: CARAFATE PO SCH ×2 (16:48→20:31)
[2022-07-22] MEDS: PROTONIX PO SCH (16:48)
[2022-07-22] MEDS: LANTUS SUBCUT SCH (16:55)
[2022-07-22] MEDS ORDERED: CARAFATE PO SCH (17:00)
[2022-07-22] MEDS: HUMULIN R SUBCUT PRN ×2 (17:09→20:31)
[2022-07-22] MEDS ORDERED: LASIX ONE (19:28)
[2022-07-22 20:25] LABS: HEMATOCRIT 27.1 % (42.0-52.0); HEMOGLOBIN 8.7 g/dl (14.0-18.0)
[2022-07-22] MEDS: MUCINEX PO SCH (20:30)
[2022-07-22] MEDS: ANCEF 1 GM/50 ML D5W 2 GM/100 ML BAG IV SCH (20:30)
[2022-07-22] MEDS: AMBIEN PO SCH (20:30)
[2022-07-22] MEDS: ATARAX PO PRN (20:42)
[2022-07-23 05:22] LABS: HEMATOCRIT 24.9 % (42.0-52.0); HEMOGLOBIN 8.5 g/dl (14.0-18.0); MEAN CORPUSCULAR HEMOGLOBIN 29.2 pg (27.0-31.0); MEAN CORPUSCULAR HGB CONC 34.1 (31.8-35.4); MEAN CORPUSCULAR VOLUME 85.6 fl (80.0-94.0); PLATELET COUNT 185 10^3/uL (140-440); RDW COEFFICIENT OF VARIATION 23.5 % (11.6-14.8); RED BLOOD COUNT 2.91 10^6/ul (4.70-6.10)
[2022-07-23 05:36] LABS: ANISOCYTOSIS 1+ (NOT PRESENT)
[2022-07-23 05:38] LABS: SPHEROCYTES OCCASIONAL (NOT PRESENT)
[2022-07-23 05:39] LABS: ALANINE AMINOTRANSFERASE 9.7 U/L (0-50); ALBUMIN 2.37 g/dL (3.5-5.0); ALKALINE PHOSPHATASE 145.4 U/L (56-119); ASPARTATE AMINO TRANSFERASE 41.3 U/L (17-59); BILIRUBIN,TOTAL 0.7 mg/dL (0.2-1.3); BLOOD UREA NITROGEN 38.5 mg/dL (9-20); CALCIUM 7.63 mg/dL (8.4-10.2); CARBON DIOXIDE 27.4 mmol/L (22-30.0); CHLORIDE 108.7 mmol/L (98-107); CREATININE 1.28 mg/dL (0.60-1.10); GLUCOSE 79.5 mg/dL (74-106); POTASSIUM 3.75 mmol/L (3.5-5.1); TOTAL PROTEIN 5.21 g/dL (6.3-8.2)
[2022-07-23] MEDS: PROTONIX PO SCH ×2 (05:46→17:16)
[2022-07-23] MEDS: TESSALON PERLES PO SCH ×3 (05:46→20:39)
[2022-07-23] MEDS: CARAFATE PO SCH ×4 (05:46→20:39)
[2022-07-23] MEDS ORDERED: PREDNISONE PO SCH (08:30)
[2022-07-23] MEDS: MUCINEX PO SCH ×2 (08:43→20:39)
[2022-07-23] MEDS: COZAAR PO SCH (08:43)
[2022-07-23] MEDS: ANCEF 1 GM/50 ML D5W 2 GM/100 ML BAG IV SCH ×2 (08:49→20:38)
[2022-07-23] MEDS ORDERED: LANTUS SUBCUT SCH (09:00)
[2022-07-23] MEDS: ATARAX PO PRN ×2 (12:14→20:39)
[2022-07-23] MEDS: LANTUS SUBCUT SCH (17:16)
[2022-07-23] MEDS: AMBIEN PO SCH (20:39)
[2022-07-23] MEDS: HUMULIN R SUBCUT PRN (20:55)
[2022-07-23] MEDS ORDERED: VISTARIL PO ONE (22:38)
[2022-07-24] MEDS: TESSALON PERLES PO SCH ×3 (05:10→20:29)
[2022-07-24 05:24] LABS: BASOPHILS % (AUTO) 0.3 % (0.0-3.0); EOSINOPHILS # (AUTO) 0.1 K/ul (0.0-0.7); EOSINOPHILS % (AUTO) 1.8 % (0.0-7.0); HEMATOCRIT 26.8 % (42.0-52.0); HEMOGLOBIN 8.9 g/dl (14.0-18.0); IMMATURE GRANULOCYTE % (AUTO) 0.5 % (0.0-5.0); LYMPHOCYTES # (AUTO) 3.4 K/uL (0.60-3.4); LYMPHOCYTES % (AUTO) 51.4 (10.0-50.0); MEAN CORPUSCULAR HEMOGLOBIN 28.3 pg (27.0-31.0); MEAN CORPUSCULAR HGB CONC 33.2 (31.8-35.4); MEAN CORPUSCULAR VOLUME 85.4 fl (80.0-94.0); MONOCYTES # (AUTO) 0.6 K/uL (0.4-2.0); MONOCYTES % (AUTO) 8.5 (0-10); NEUTROPHILS # (AUTO) 2.5 K/ul (2.0-6.9); NEUTROPHILS % (AUTO) 37.5 % (42.2-75.2); PLATELET COUNT 208 10^3/uL (140-440); RDW COEFFICIENT OF VARIATION 23.7 % (11.6-14.8); RED BLOOD COUNT 3.14 10^6/ul (4.70-6.10); WHITE BLOOD COUNT 6.62 K/ul (4.2-10.2)
[2022-07-24] MEDS: CARAFATE PO SCH ×4 (05:30→20:28)
[2022-07-24] MEDS: PROTONIX PO SCH ×2 (05:30→16:58)
[2022-07-24 05:40] LABS: ALBUMIN 2.71 g/dL (3.5-5.0); ALKALINE PHOSPHATASE 173.7 U/L (56-119); ASPARTATE AMINO TRANSFERASE 53.5 U/L (17-59); BILIRUBIN,TOTAL 0.72 mg/dL (0.2-1.3); BLOOD UREA NITROGEN 35.2 mg/dL (9-20); CALCIUM 7.77 mg/dL (8.4-10.2); CARBON DIOXIDE 27.2 mmol/L (22-30.0); CHLORIDE 108.4 mmol/L (98-107); CREATININE 1.29 mg/dL (0.60-1.10); GLUCOSE 75.1 mg/dL (74-106); POTASSIUM 4.13 mmol/L (3.5-5.1); SODIUM 137.6 mmol/L (134.5-145); TOTAL PROTEIN 5.68 g/dL (6.3-8.2)
[2022-07-24 05:56] LABS: ANISOCYTOSIS 1+ (NOT PRESENT)
--- NOTE | 2022-07-24 09:04 | PCM.PROG ---
Attending Provider: ATTENDING PROVIDER: Dr. PADMINI RODRIGUES This patient is seen with Ledy Palma, Nurse Practitioner. DATE OF SERVICE: 07/24/22 SUBJECTIVE: This 82 year old M was hospitalized 07/22/22. Has been resting comfortably. Sugars in the 400s usually around supper. Hgb up today to 8.9. Renal function has improved. Start Prednisone 5mg today. REVIEW OF SYSTEMS: CONSTITUTIONAL: No night sweats. No fatigue, malaise, lethargy. No fever or chills. Weakness. HEENT: Eyes: No visual changes. No eye pain. No eye discharge. ENT: No runny nose. No epistaxis. No sinus pain. No odynophagia. No congestion. RESPIRATORY: Cough, no congestion. No hemoptysis. Shortness of breath. CARDIOVASCULAR: No angina symptoms. No CHF symptoms. No atypical chest pain for CAD. No palpitations. No orthopnea.. GASTROINTESTINAL: No abdominal pain. No nausea or vomiting. No diarrhea or constipation. No hematemesis. No hematochezia. GENITOURINARY: No urgency. No frequency. No dysuria. No hematuria. No obstructive symptoms. No discharge. No pain. No significant abnormal bleeding. MUSCULOSKELETAL: No musculoskeletal pain; no joint swelling. Leg edema. NEUROLOGICAL: Awake, alert, oriented to time, place and person. No headache. No neck pain. No syncope. No seizures. No dizziness. PSYCHIATRIC: Not anxious. No depression. No suicidal thoughts. No homicidal thoughts. SKIN: No rash. No lesions. No wounds. ENDOCRINE: No unexplained weight loss. No weight gain. HEMATOLOGIC/LYMPHATIC: No anemia. No purpura. No petechiae. No prolonged or excessive bleeding. No palpable lymph nodes. PHYSICAL EXAMINATION: GENERAL: The patient is awake, alert and oriented, lying in bed in no distress. VITAL SIGNS: Temperature 98 F, Pulse 93, Respiratory Rate 20, BP 145/56, Pulse Ox 96% HEENT: Head normocephalic, atraumatic. Eyes: Extraocular muscles are intact. Pupils are equal, round and reactive to light and accommodation. Ears: No lesions. Nose appeared normal. Throat: No exudate or erythema. NECK: Supple. No JVD, no carotid bruit. No lymphadenopathy or thyromegaly. LUNGS: Severely diminished breath sounds. Clear to auscultation. Percussion note normal. Chest symmetrical. HEART: S1, S2, no S3. No murmurs. No cyanosis or clubbing. No ascites. Pulses: Dorsalis pedis and posterior tibial pulses +1 to +2 both sides. ABDOMEN: Soft. Non-tender. Bowel sounds active. No CVA tenderness. No mass felt. EXTREMITIES: 2+ bilateral leg edema. Full range of motion of all extremities, equal. NEUROLOGIC: No focal deficit. Cranial nerves II through XII are grossly intact. No headache. No double vision. SKIN: Not dry. Intact. Turgor-normal. LYMPHATIC: No palpable lymph nodes/no lymphedema. MUSCULOSKELETAL: Normal joints with no swelling. Muscle tone is normal. LAB REVIEW: 07/24/22 04:30 07/24/22 04:30 07/24/22 04:30: Sodium 137.6, Potassium 4.13, Chloride 108.4 H, Carbon Dioxide 27.2, Anion Gap 6.13, BUN 35.2 H, Creatinine 1.29 H, Estimated GFR (MDRD) 53.00, BUN/Creatinine Ratio 27.28, Glucose 75.1, Calcium 7.77 L, Total Bilirubin 0.72, AST 53.5, ALT 13.0, Alkaline Phosphatase 173.7 H D, Total Protein 5.68 L, Albumin 2.71 L, Globulin 2.97, Albumin/Globulin Ratio 0.91 07/24/22 04:30: WBC 6.62, RBC 3.14 L, Hgb 8.9 L, Hct 26.8 L, MCV 85.4, MCH 28.3, MCHC 33.2, RDW Coeff of Liza 23.7 H, Plt Count 208, Immature Gran % (Auto) 0.5, Neut % (Auto) 37.5 L, Lymph % (Auto) 51.4 H, [place] % (Auto) 8.5, Eos % (Auto) 1.8, Baso % (Auto) 0.3, Neut # (Auto) 2.5, Lymph # (Auto) 3.4, [place] # (Auto) 0.6, Eos # (Auto) 0.1, Baso # (Auto) 0.0, Immature Gran # (Auto) 0.0, Anisocytosis 1+ ASSESSMENT: Please see below. 1. Diabetes Mellitus type II 2. Anemia 3. Renal Azotemia with underline chronic kidney disease 4. COPD 5. Sepsis PLAN: 1. Increased Lantus to 10 units in the morning 2. Continue IV antibiotics with Incef as recommended per [place] 3. CBC and CMP tomorrow 4. The patient is nearing point I do believe he would be candidate for swing bed again, will verify with insurance. Plan and coordination of the patient's care discussed in the presence of Manager Purchasing and nurse. SCRIBED BY: Aria GARCIA scribed while in presence of service performed by Dr. Rodrigues/Ledy Palma APRN on 07/24/22 ([id number])
[2022-07-24] MEDS: COZAAR PO SCH (09:15)
[2022-07-24] MEDS: PREDNISONE PO SCH (09:15)
[2022-07-24] MEDS: MUCINEX PO SCH ×2 (09:15→20:27)
[2022-07-24] MEDS: ANCEF 1 GM/50 ML D5W 2 GM/100 ML BAG IV SCH ×2 (09:32→20:37)
[2022-07-24] MEDS: LANTUS SUBCUT SCH ×2 (10:12→16:57)
[2022-07-24] MEDS ORDERED: BETAMETHASONE VALERATE TP PRN (11:01)
--- NOTE | 2022-07-24 13:53 | RS.PTINEVL ---
Subjective - Patient information Date of Evaluation: 07/24/22 Date of Arrival on Unit: 07/22/22 Admitted From:: In-House Transfer (transfer from swing to acute) Diagnosis: anemia, COPD, B PE, sepsis, weakness Usual Living Arrangement: With Spouse Home Environment: House, Stairs (few), Rail Medical History: Hypertension, COPD, Diabetes, CHF, Arthritis Medical History Comments:: diabetic neuropathy, CKD, recent COVID, B pulmonary embolism, severe pulmonary hypertension Medications: see chart Subjective Information/ Patient Comments:: pt c/o itching from his antibiotics. pt states that he is feeling tired. - Level of function Prior to this admission, the patient could do the following:: Independent Ambulation Current Level of Function: Partially Dependent Current Equipment Used at Home: glucometer, oxygen Interventions - Objective Patient Orientation: Person, Place, Situation Current Interventions: IV's, Oxygen (3 liters) Observation: pt with pitting edema BLE. Applied pt's compression socks Range of Motion - ROM Right Upper Extremity AROM: WFL's Left Upper Extremity AROM: WFL's Right Lower Extremity AROM: WFL's Left Lower Extremity AROM: WFL's Muscle Strength - Muscle Strength Right Upper Extremity Strength: Mild Weakness (grossly 4/5) Left Upper Extremity Strength: Mild Weakness (grossly 4/5) Right Lower Extremity Strength: Mild Weakness (hip flex 4-/5, knee flex/ext 4/5, ankle DF/PF 4/5) Left Lower Extremity Strength: Mild Weakness (hip flex 4-/5, knee flex/ext 4/5, ankle DF/PF 4/5) Sensation - Sensation Right Upper Extremity Sensation: Impaired Left Upper Extremity Sensation: Impaired Right Lower Extremity Sensation: Impaired Left Lower Extremity Sensation: Impaired Comments: pt with numbness and tingling B hands and feet Palpation Palpation Findings: None/Normal Balance - Sitting Balance and Reactions Static Sitting Balance: Good Dynamic Sitting Balance: Fair (fair+) - Standing Balance and Reactions Static Standing Balance: Poor Dynamic Standing Balance: Poor Standing Equilibrium Reactions: Delayed Left, Delayed Right Standing Protective Reactions: Delayed Left, Delayed Right Functional Mobility - Bed Mobility Comments:: pt seen sitting up in chair - Transfers Sit to Stand: Min Assist Stand to Sit: CGA - Safety Awareness Safety Awareness: Fair RAHUL INDEX SCORE: n/a Ambulation - Ambulation Assistive Device Used: Rolling Walker Orthotic/Prosthetic Device: No Distance: 100ft Assistance needed with Ambulation: CGA Quality of Ambulation: with 3 liters O2 pulse ox decreased to 86% after amb after rest increased to 96% Gait Deviations: Shuffling gait, Forward posture, Short stride, Deviates from path Factors Affecting Ambulation: Decreased Balance, Breathing/O2 Saturation, Weakness, Decreased Safety, Limited Endurance, Limited Sensation Treatment time - Units charged Gait trainin - Time with patient Length of Evaluation: 18 Total treatment time: 36 Patient Education - Education Patient Education: Activity Modification, Education of Plan of Care Teaching Recipient: Patient Teaching Methods: Discussion Assessment - Assessment Problem List:: Decreased level of function, Requires training/education, Decreased safety/Risk of falls, Weakness Rehab Potential: Good Further Therapy Indicated?: Yes Candidate for Swing Bed for Therapy Services?: Feel pt would be a candidate for swing bed for therapy to improve functional mobility and decrease risk of falls to allow pt to return home. Evaluation Complexity: HISTORY: Medium, EXAM OF BODY SYSTEMS: Medium, CLINICAL PRESENTATION: Medium, CLINICAL DECISION MAKING: Medium Patient's Goal(s): to return home Short Term Goals GOAL #1: Rolling /scooting in bed with SBA Goal to be met by: 07/26/22 GOAL #2: Transfer sup to/from sit CGA Goal to be met by: 07/26/22 GOAL #3: Transfer sit to/from stand CGA Goal to be met by: 07/26/22 GOAL #4: pt amb 110ft ft with rwx and O2 CGA with O2>90% Goal to be met by: 07/26/22 GOAL #5: Improve BLE strength 4/5 Goal to be met by: 07/26/22 Shelter Goals GOAL #1: Independent with bed mobility Goal to be met by: 07/29/22 GOAL #2: pt amb 140ft with rwx CGA to SBA with pulse ox >92% Goal to be met by: 07/29/22 GOAL #3: Improve dyn stand balance fair - Goal to be met by: 07/29/22 Plan Plan of Care: Therapeutic EX, Therapeutic Activity Other:: gait training Frequency of Treatment: 1-2 X day, as tolerated Duration of Treatment: 5 days Anticipated Discharge Destination: back to swing bed Treatment Diagnosis (ICD 10 Codes): Impaired balance R26.81. difficulty walking R26.2. fall risk Z91.81 Has the Physician been added for Co-signature?: Yes
--- NOTE | 2022-07-24 16:30 | RS.OTINEVL ---
Subjective - Patient information Date of Evaluation: 07/24/22 Date of Arrival on Unit: 07/22/22 Admitted From:: In-House Transfer (transfer from swing to acute) Diagnosis: Diff. Amb., Imp. Bal.,related to Sepsis PRECAUTIONS: O2 levels Usual Living Arrangement: With Spouse Living Arrangement Comments: lives with , has been using rwx and O2 since March hospitalization. Home Environment: House, Stairs (few), Rail Medical History: Hypertension, COPD, Diabetes, CHF, Arthritis Medical History Comments:: diabetic neuropathy, CKD, recent COVID, B pulmonary embolism, severe pulmonary hypertension LATEX ALLERGY?: No Medications: see chart Subjective Information/ Patient Comments:: "I would like to walk and take a shower." - Level of function Prior to this admission, the patient could do the following:: Partially Dependent Ambulation Abilities prior to this admission: Pt was able to take a shower sitting on a bench. Pt was able to wash himself. Pt took extra time in the shower. Pt is max assist with BLE dressing. Pt oriented x 4. Current Level of Function: Partially Dependent Comments: Pt's O2 levels drop when he is walking and completing ADLS. Current Equipment Used at Home: glucometer, oxygen Pain Assessment - Pain Pain Score: 0 Interventions - Objective Patient Orientation: Person, Place, Time, Situation Current Interventions: IV's, Oxygen Observation: Pt wearing compression hose on his BLE and the compression is pitting. Pt is weak but is able to stand with RW CGA. Pt transferred from chair to shower min A. Pt sit to stand CGA. Pt setup for shower. Pt requires assistance with drying BLE off after shower. Interventions - ROM Right Upper Extremity AROM: Slight limitation Left Upper Extremity AROM: Slight limitation - Strength Right Upper Extremity Strength: Mild Weakness Left Upper Extremity Strength: Mild Weakness - Sensation Right Upper Extremity Sensation: Intact/Normal Left Upper Extremity Sensation: Intact/Normal Balance - Sitting Balance Static Sitting Balance: Fair Dynamic Sitting Balance: Fair - Standing Balance Static Standing Balance: Poor Dynamic Standing Balance: Poor ADL Skills - Self Feeding Self Feeding: Independent - Grooming Grooming: Min Assist - Bathing Bathing UE: Set Up Only Bathing LE: Set Up Only Bathing Set-up: Shower Comments:: Pt sits on bench in shower. - Dressing Dressing UE: Min Assist, 1 person assist Dressing LE: Max Assist, 1 person assist - Toilet Management Toilet Hygiene: Independent Toilet Clothing Management: CGA Functional Mobility - Ambulation Weight Bearing Status: FWB Assistive Device Used: Rolling Walker Assistance needed with Ambulation: CGA - Safety Awareness Safety Awareness: Good RAHUL INDEX SCORE: . Additional Treatment Performed - Additional units charged ADL: 15 - Time with patient Length of Evaluation: 26 Total treatment time: 41 Activities Would you be interested in leaving your room for activities?: Yes Would you enjoy group activities?: Yes Do you have difficulty with your vision?: Yes Patient Interests:: Watching Television, Visiting/Socializing Patient Education Patient Education: Education of diagnosis, Home Exercise Program, Education of Plan of Care Teaching Recipient: Patient Teaching Methods: Discussion Assessment Problem List:: Decreased level of function, Weakness Rehab Potential: Good Candidate for Swing Bed for Therapy Services?: yes Evaluation Complexity: HISTORY: Medium, EXAM OF BODY SYSTEMS: Medium, CLINICAL DECISION MAKING: Medium Patient's Goal(s): To get stronger and be able to walk better. Short Term Goals - Goals GOAL 1: Pt to increase toilet transfer to CGA with RW. Goal to be met by: 07/31/22 GOAL 2: Pt to increase dyn. std. bal. to Fair+. Goal to be met by: 07/31/22 GOAL 3: Pt to increase Activity tolerance to 15 minutes to increase safety. Goal to be met by: 07/31/22 GOAL 4: Pt to be CGA with sink level ADLS. Goal to be met by: 07/31/22 Senior Living Goals GOAL 1: Pt to increase [place] of ADLs to Independent. Goal to be met by: 08/07/22 GOAL 2: Pt to increase dyn. std. bal. to G-. Goal to be met by: 08/07/22 GOAL 3: Pt to increase activity tolerance to 20 minutes with rests. Goal to be met by: 08/07/22 Plan Plan of Care: Therapeutic EX, Therapeutic Activity, Self-Care/Home Management Frequency of Treatment: 1-2 X day, as tolerated Duration of Treatment: 2 Weeks Anticipated Discharge Destination: Home Treatment Diagnosis (ICD 10 Codes): Weakness M62.81, Z74.1 Need for assistance with personal care. Has the Physician been added for Co-signature?: Yes
[2022-07-24] MEDS: HUMULIN R SUBCUT PRN ×2 (16:56→20:27)
[2022-07-24] MEDS: AMBIEN PO SCH (20:28)
[2022-07-24] MEDS: ATARAX PO PRN (20:37)
[2022-07-25 05:23] LABS: BASOPHILS % (AUTO) 0.5 % (0.0-3.0); EOSINOPHILS # (AUTO) 0.1 K/ul (0.0-0.7); EOSINOPHILS % (AUTO) 1.9 % (0.0-7.0); HEMATOCRIT 25.4 % (42.0-52.0); HEMOGLOBIN 8.3 g/dl (14.0-18.0); IMMATURE GRANULOCYTE % (AUTO) 0.3 % (0.0-5.0); LYMPHOCYTES # (AUTO) 2.3 K/uL (0.60-3.4); LYMPHOCYTES % (AUTO) 39.4 (10.0-50.0); MEAN CORPUSCULAR HEMOGLOBIN 28.1 pg (27.0-31.0); MEAN CORPUSCULAR HGB CONC 32.7 (31.8-35.4); MEAN CORPUSCULAR VOLUME 86.1 fl (80.0-94.0); MONOCYTES # (AUTO) 0.4 K/uL (0.4-2.0); MONOCYTES % (AUTO) 7.6 (0-10); NEUTROPHILS # (AUTO) 2.9 K/ul (2.0-6.9); NEUTROPHILS % (AUTO) 50.3 % (42.2-75.2); PLATELET COUNT 207 10^3/uL (140-440); RED BLOOD COUNT 2.95 10^6/ul (4.70-6.10); WHITE BLOOD COUNT 5.78 K/ul (4.2-10.2)
[2022-07-25 05:38] LABS: ALANINE AMINOTRANSFERASE 10.8 U/L (0-50); ALBUMIN 2.51 g/dL (3.5-5.0); ALKALINE PHOSPHATASE 166.2 U/L (56-119); ASPARTATE AMINO TRANSFERASE 44.3 U/L (17-59); BILIRUBIN,TOTAL 0.67 mg/dL (0.2-1.3); BLOOD UREA NITROGEN 35.6 mg/dL (9-20); CALCIUM 6.82 mg/dL (8.4-10.2); CARBON DIOXIDE 25.1 mmol/L (22-30.0); CHLORIDE 110.3 mmol/L (98-107); CREATININE 1.28 mg/dL (0.60-1.10); GLUCOSE 70.1 mg/dL (74-106); POTASSIUM 3.83 mmol/L (3.5-5.1); SODIUM 139.5 mmol/L (134.5-145); TOTAL PROTEIN 5.41 g/dL (6.3-8.2)
[2022-07-25] MEDS: PROTONIX PO SCH (05:48)
[2022-07-25] MEDS: CARAFATE PO SCH ×2 (05:48→11:07)
[2022-07-25] MEDS: TESSALON PERLES PO SCH ×2 (05:49→13:48)
[2022-07-25 06:00] LABS: ANISOCYTOSIS 1+ (NOT PRESENT)
[2022-07-25 06:01] LABS: SPHEROCYTES 1+ (NOT PRESENT)
[2022-07-25] MEDS: PREDNISONE PO SCH (11:01)
[2022-07-25] MEDS: MUCINEX PO SCH (11:01)
[2022-07-25] MEDS: COZAAR PO SCH (11:02)
[2022-07-25] MEDS: LANTUS SUBCUT SCH (11:10)
--- NOTE | 2022-07-25 11:47 | HP ---
DATE OF SERVICE: 07/22/22 SUBJECTIVE: The patient's condition has changed in a way that the patient's hgb is now 7.5 with hct of 22. The patient is symptomatic in a way that he is short of breath on minimal exertion. He has generalized anasarca. PAST MEDICAL/SURGICAL HISTORY: Chronic kidney disease stage IIII mainly on the bases of diabetes mellitus Chronic heart failure with preserved ejection fraction Chronic anemia with monoclonal gammopathy Paroxysmal atrial fibrillation, one episode during [place] hospitalization History of hypertension History of diabetes mellitus Mild pericardial effusion, chronic Angiodysplasia of the colon with history of GI bleed Pneumonitis with cough could be related to COVID 19 History of bronchiectasis REVIEW OF SYSTEMS: CONSTITUTIONAL: No night sweats. Fatigue. No fever or chills. HEENT: Eyes: No visual changes. No eye pain. No eye discharge. ENT: No runny nose. No epistaxis. No sinus pain. No sore throat. No odynophagia. No congestion. RESPIRATORY: No cough, no congestion. No hemoptysis. Shortness of breath. CARDIOVASCULAR: No angina symptoms. No CHF symptoms. No atypical chest pain for CAD. No palpitations. No PND. No orthopnea. GASTROINTESTINAL: No abdominal pain. No nausea or vomiting. No diarrhea or constipation. No hematemesis. No hematochezia. Appetite seems to be improving but still not up to par. GENITOURINARY: No urgency. No frequency. No dysuria. No hematuria. No obstructive symptoms. No discharge. No pain. No significant abnormal bleeding. MUSCULOSKELETAL: No musculoskeletal pain; no joint swelling. Generalized aches. NEUROLOGICAL: No headache. No neck pain. No syncope. No seizures. No dizziness. PSYCHIATRIC: Not anxious. No depression. No suicidal thoughts. No homicidal thoughts. SKIN: No rash. No lesions. No wounds. Generalized itching. ENDOCRINE: No unexplained weight loss. No weight gain. HEMATOLOGIC/LYMPHATIC: No anemia. No purpura. No petechiae. No prolonged or excessive bleeding. No palpable lymph nodes. SOCIAL HISTORY: and lives with . Non smoker. No alcohol abuse. Tries to do all activity of daily living. MEDICATIONS: Pantoprazole Glargine insulin Prednisone Mucinex Tussionex Cefazolin Losartan 25mg Sucralfate Benadryl ALLERGIES: Avelox Metabisulfite PHYSICAL EXAMINATION: GENERAL: Oriented to time, place and person, looks pale. HEENT: Head normocephalic, atraumatic. Eyes: Extraocular muscles are intact. Pupils are equal, round and reactive to light and accommodation. Ears: No lesions. Nose appeared normal. Throat: No exudate or erythema. NECK: Supple. No JVD, no carotid bruit. No lymphadenopathy or thyromegaly. LUNGS: Decreased breath sounds but clear to auscultation. Percussion note normal. Chest symmetrical. HEART: S1, S2, no S3. No murmurs. No cyanosis or clubbing. No ascites. Pulses: Dorsalis pedis and posterior tibial pulses +1 to +2 bilaterally. ABDOMEN: Soft. Nontender. Bowel sounds active. No CVA tenderness. No mass felt. EXTREMITIES: +1 pitting edema. Full range of motion of all extremities, equal. NEUROLOGIC: No focal deficit. Cranial nerves II through XII are grossly intact. No headache. No double vision. SKIN: Dry. Intact. Turgor - better than yesterday. LYMPHATIC: No palpable lymph nodes/no lymphedema. MUSCULOSKELETAL: Normal joints with no swelling. Muscle tone is normal. LABS: Anemia noted. The patient's BUN and Creatinine better than yesterday. ASSESSMENT: 1. Severe anemia probably requiring blood transfusion because of the patient's anemia is symptomatic with shortness of breath on minimal exertion. 2. Renal azotemia 3. 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 Chronic bronchitic 5. Chronic lung disease with pulmonary hypertension 6. Septicemia with Cefazolin sensitive.Staph aureus 7. Diabetes Mellitus type II 8. Dyslipidemia 9. History of hypertension PLAN: 1. Needs to get ready for physical therapy. He is trying but get short of breath and sleepy most of the time. 2. Given 1 unit of packed red cells, will start it myelodysplastic syndrome with neutropenia 3. IV Lasix a couple hours after the blood transfusion, has already been started for leg edema 4. Continue Losartan, Cefazolin 5. The patient is going to be admitted regular. TIME SPENT: More than 70 minutes Plan and coordination of the patient's care discussed in the presence of nurse. KENNETH
[2022-07-25] MEDS: ATARAX PO PRN (13:48)
[2022-07-25 16:14] VITALS: BP 129/68; TEMP 98.1
[2022-07-25] MEDS ORDERED: LANTUS SUBCUT SCH (21:00)
--- NOTE | 2022-07-28 14:49 | PN ---
DATE OF SERVICE: 07/23/22 SUBJECTIVE: 82 year old white male hospitalized with multiple medical problems. The patient was on swing bed because of deterioration of his general health and weakness. The patient was hospitalized for PT/OT. The patient developed symptomatic anemia with hgb 7.6. The patient was short of breath. The patient had failure to thrive. The patient has been given 1 unit of packed red cells, his hgb is 8.5 with hct of 25. The patient is feeling a lot better. is present in the room. REVIEW OF SYSTEMS: CONSTITUTIONAL: No night sweats. Fatigue that been less than when he came into the hospital. No fever or chills. HEENT: Eyes: No visual changes. No eye pain. No eye discharge. ENT: No runny nose. No epistaxis. No sinus pain. No sore throat. No odynophagia. No congestion. RESPIRATORY: Mild cough, no congestion. No hemoptysis. Shortness of breath on exertion. CARDIOVASCULAR: No angina symptoms. No CHF symptoms. No atypical chest pain for CAD. No palpitations. No PND. No orthopnea. GASTROINTESTINAL: No abdominal pain. No nausea or vomiting. No diarrhea or constipation. No hematemesis. No hematochezia. GENITOURINARY: No urgency. No frequency. No dysuria. No hematuria. No obstructive symptoms. No discharge. No pain. No significant abnormal bleeding. MUSCULOSKELETAL: No musculoskeletal pain; no joint swelling. NEUROLOGICAL: No headache. No neck pain. No syncope. No seizures. No dizziness. PSYCHIATRIC: Not anxious. No depression. No suicidal thoughts. No homicidal thoughts. SKIN: No rash. No lesions. No wounds. ENDOCRINE: No unexplained weight loss. No weight gain. HEMATOLOGIC/LYMPHATIC: No anemia. No purpura. No petechiae. No prolonged or excessive bleeding. No palpable lymph nodes. PHYSICAL EXAMINATION: GENERAL: The patient is oriented to time, place and person. Color is somewhat better. VITAL SIGNS: Temperature 98, pulse 85, respiratory rate 18, blood pressure 148/75 and pulse ox 96% on room air. HEENT: Head normocephalic, atraumatic. Eyes: Extraocular muscles are intact. Pupils are equal, round and reactive to light and accommodation. Ears: No lesions. Nose appeared normal. Throat: No exudate or erythema. NECK: Supple. No JVD, no carotid bruit. No lymphadenopathy or thyromegaly. LUNGS: Decreased breath sounds but clear to auscultation. Percussion note normal. Chest symmetrical. HEART: S1, S2, no S3. No murmurs. No cyanosis or clubbing. No ascites. Pulses: Dorsalis pedis and posterior tibial pulses +1 to +2 bilaterally. ABDOMEN: Soft. Nontender. Bowel sounds active. No CVA tenderness. No mass felt. EXTREMITIES: No edema. Full range of motion of all extremities, equal. NEUROLOGIC: No focal deficit. Cranial nerves II through XII are grossly intact. No headache. No double vision. SKIN: Not dry. Intact. Turgor -better LYMPHATIC: No palpable lymph nodes/no lymphedema. MUSCULOSKELETAL: Normal joints with no swelling. Muscle tone is normal. LABS: Hgb 8.5, hct 24, WBC 4,400 normal differential, creatinine 1.2, BUN 38, potassium 3.7 ASSESSMENT: 1. Anemia seems to be stable for now etiology of anemia is unknown. Multiple causes have been entertained like immune hemolytic anemia, disseminated intravascular coagulation, anemia from chronic GI blood loss, anemia from myelodysplastic syndrome 2. Anasarca likely from nephrotic syndrome likely based on diabetic nephropathy could be amyloidosis of the kidney, severe anemia causing generalized contributing toward generalized anasarca with hypoproteinemia 3. Chronic kidney, stable, improved. 4. Chronic lung disease 5. Bronchiectasis 6. Mild pulmonary hypertension 7. Possibility of septicemia which is being treated with Cephazolin. Penicillin sensitive, Staph aureus 8. Hypertension 9. History of diabetes mellitus 10.History of dyslipidemia PLAN: 1. Continue the same management with low dose steroids 2. Continue Cefazolin, the last dose will be tomorrow 3. Continue to monitor CBC and CMp 4. Continue to followup with [facility] at [facility] 5. The patient has appointment with [facility] at [facility] on August 05. CONDITION: Improving, stable The patient is DNR. TIME SPENT: More than 30 minutes. Plan and coordination of the patient's care discussed in the presence of nurse. KENNETH
--- NOTE | 2022-07-29 13:01 | PN ---
DATE OF SERVICE: 07/25/22 SUBJECTIVE: 82 year old white male was hospitalized with weakness, ataxia. The patient was in the swing bed. The patient was put in the regular bed because of symptomatic anemia. The patient is feeling better has been given one unit of packed red cell and his hgb is staying more than 8 with hct more than 25 that seems to be improving. His voice has become a little stronger. REVIEW OF SYSTEMS: CONSTITUTIONAL: No night sweats. No fatigue, malaise, lethargy. No fever or chills. HEENT: Eyes: No visual changes. No eye pain. No eye discharge. ENT: No runny nose. No epistaxis. No sinus pain. No sore throat. No odynophagia. No congestion. RESPIRATORY: Mild cough, no congestion. No hemoptysis. Shortness of breath on exertion. CARDIOVASCULAR: No angina symptoms. No CHF symptoms. No atypical chest pain for CAD. No palpitations. No PND. No orthopnea. GASTROINTESTINAL: No abdominal pain. No nausea or vomiting. No diarrhea or constipation. No hematemesis. No hematochezia. GENITOURINARY: No urgency. No frequency. No dysuria. No hematuria. No obstructive symptoms. No discharge. No pain. No significant abnormal bleeding. MUSCULOSKELETAL: No musculoskeletal pain; no joint swelling. NEUROLOGICAL: No headache. No neck pain. No syncope. No seizures. No dizziness. PSYCHIATRIC: Not anxious. No depression. No suicidal thoughts. No homicidal thoughts. SKIN: No rash. No lesions. No wounds. ENDOCRINE: No unexplained weight loss. No weight gain. HEMATOLOGIC/LYMPHATIC: No anemia. No purpura. No petechiae. No prolonged or excessive bleeding. No palpable lymph nodes. PHYSICAL EXAMINATION: VITAL SIGNS: Temperature 98.3, pulse 97, respiratory rate 19, blood pressure 150/67 and pulse ox 92% on room air. HEENT: Head normocephalic, atraumatic. Eyes: Extraocular muscles are intact. Pupils are equal, round and reactive to light and accommodation. Ears: No lesions. Nose appeared normal. Throat: No exudate or erythema. NECK: Supple. No JVD, no carotid bruit. No lymphadenopathy or thyromegaly. LUNGS: Decreased breath sounds but clear to auscultation. Percussion note normal. Chest symmetrical. HEART: S1, S2, no S3. No murmurs. No cyanosis or clubbing. No ascites. Pulses: Dorsalis pedis and posterior tibial pulses +1 to +2 bilaterally. ABDOMEN: Soft. Nontender. Bowel sounds active. No CVA tenderness. No mass felt. EXTREMITIES: No edema. Full range of motion of all extremities, equal. NEUROLOGIC: No focal deficit. Cranial nerves II through XII are grossly intact. No headache. No double vision. SKIN: Not dry. Intact. Looks pale but color and skin turgor a lot better. LYMPHATIC: No palpable lymph nodes/no lymphedema. MUSCULOSKELETAL: Normal joints with no swelling. Muscle tone is normal. LABS: hgb 8.3, hct 25, WBC 5,700 normal differential, creatinine 1.2, BUN 35, potassium 3.8 ASSESSMENT: 1. Symptomatic anemia which is more or less stable symptom shortness of breath which could be related to a lot factors including anemia 2. Chronic lung disease with chronic bronchitis 3. Anemia multiple origin 4. Generalized swelling likely from nephrotic syndrome and hypoproteinemia 5. History of diabetes mellitus 6. Hypertension PLAN: 1. Continue all the medication 2. Encourage to the patient to eat 3. The patient wants to walk outside. Nurses have been instructed to take patient outside and let him walk 4. We will put the patient back in the regular swing bed. His acute care is not approved by insurance company, [employer] [facility] which is kind of expected from greedy insurance companies. TIME SPENT: More than 30 minutes. Plan and coordination of the patient's care discussed in the presence of nurse. KENNETH
--- NOTE | 2022-09-12 10:37 | DS ---
DATE OF SERVICE: 07/25/22 FINAL DIAGNOSIS: 1. 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 Renal azotemia 3. 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 4. Chronic bronchitis 5. Chronic lung disease with pulmonary hypertension 6. History of septicemia 7. Diabetes Mellitus type II 8. Dyslipidemia 9. Hypertension DISCHARGE INSTRUCTIONS: Discharge from Inpatient to swing bed. PT/OT evaluate and treat. Oxygen 3 liter per nasal canula continuous. Respiratory PCR time one. CBC and CMP every three days. Accu-checks ACHS with sliding scale. Code Status: DNR. Continue all other medications. Scheduled followup appointment with [facility] August 05 at 3pm, Dr. Mallory Weber. August 11 Dr. Ran Wallace, September [address] Izzy Mejias MEDICATIONS AT DISCHARGE: Pantoprazole 40mg PO BID Zolpidem 10mg PO QHS Prednisone 10mg PO daily Tessalon Perles 100mg PO Q 8 hour Losartan 75mg PO daily Mucinex 1200mg PO Q 12 hours Carafate 1gram PO ACHS NEW PRESCRIPTIONS: Change Lantus to 10 units at bedtime only. DISCONTINUED MEDICATIONS: Basaglar 5 units SUBCUT QM Lantus 18 units SUBCUT QPM DIET INSTRUCTIONS: 1800 ADA and HS snack ACTIVITY: Up as tolerated with assist of one. RWX and Gait belt per swing bed program with order set. HOSPITAL COURSE: The patient had been in swing bed program after being discharged from [facility] for generalized weakness, impaired mobility, gait disturbance. Kidney function progressively worsened along with hgb and hct. He became short of breath to the point that he was unable to do physical therapy which was the point of the swing bed. Hgb got down to 7.5 with hct of 22. He was given 1 unit of packed red blood cells. Hgb went up to 8.5 and then again up to 8.9. He was also given IV Lasix after the blood transfusion due to persistent edema and shortness of breath. He was monitored. Hgb stayed stable. BUN and creatinine improved after the blood transfusion. He will be discharged back to swing bed in stable condition to resume his physical and occupation therapy. Medications have remained unchanged. TIME SPENT: More than 60 minutes. [facility]
== END 2022-07-25 16:05 | disposition swing bed (61) | DRG 299 ==
LOC: MEDSURG A 12:22
PROVIDERS: ADMIT Internal Medicine; ATTEND Internal Medicine

== ENCOUNTER 2022-09-16 16:47 | Observation (INO) ==
[2022-09-16 16:51] VITALS: BMI 24.3
--- NOTE | 2022-09-16 17:46 | ED.PDOC ---
General ED Provider: Dr. MALU SPAIN MD Chief Complaint: Non-specific Complaint Stated Complaint: mild to mod general weakness today, Hb 6.7 at noon, no blood in stool, microscopic urine blood, hx autoimmune hemolytic anemia, pt requesting transfusion on one unit of pRBC Time Seen by Provider: 09/16/22 17:03 Mode of Arrival: Wheelchair Information Source: Patient Primary Care Provider: PADMINI RODRIGUES MD Nursing and Triage Documentation Reviewed and Agree: Yes Does patient meet sepsis criteria?: No System Inflammatory Response Syndrome: Not Applicable Sepsis Protocol: For patient's 13 years and over: Temp is 96.8 and below OR 101 and greater Pulse >90 BPM Resp >20/minute Acutely Altered Mental Status Are patient's symptoms suggestive of a new infection, such as: -Pneumonia -Skin, Soft Tissue -Endocarditis -UTI -Bone, Joint Infection -Implantable Device -Acute Abdominal Infection -Wound Infection -Meningitis -Blood Stream Catheter Infection -Unknown Review of Systems Review Of Systems Constitutional: Reports Malaise; Denies Fever Eyes: Denies Vision change Ears, Nose, Mouth, Throat: Denies Epistaxis Respiratory: Denies Short of air Cardiac: Denies Chest pain GI: Denies Abdominal pain, Rectal bleeding or Vomiting Skin: Denies Cyanosis Neurological: Denies Cognitive dysfunction All Other Systems: Other [facility] Medical History (Updated 09/16/22 @ 17:46 by MALU SPAIN MD) Acute respiratory failure Atrial fibrillation Bacteremia Chronic heart failure Chronic kidney disease Chronic pulmonary embolism Diabetes Fall on concrete Head injury Hypertension Hypoxia Need for vaccination against Streptococcus pneumoniae using pneumococcal conjugate vaccine 13 Nephrotic syndrome Neutropenia Normal endoscopic ultrasound of lower GI tract Normal endoscopic ultrasound of upper GI tract Pneumonia Pneumonia due to 2019 novel coronavirus Pulmonary hypertension due to hypoxia Sepsis Shortness of breath Tubular necrosis Family History Other No known health problems Social History Smoking and tobacco status: Former smoker Surgical History H/O colonoscopy History of biopsy History of cystoscopy Physical Exam Physical Exam Appearance: Reports No pain distress Ill-appearing: None Pain Distress: None Eyes: Reports Conjunctiva clear ENT: Denies Rhinorrhea Neck: Supple Respiratory: Reports Airway patent Cardiovascular: Reports Not Examined GI/: Reports Not Examined Musculoskeletal: Reports ROM intact Skin: Reports Normal color Neurological: Reports Alert and Oriented Psychiatric: Reports Affect appropriate Critical Care Note Critical Care Note Total Critical Care Time (mins): 0 Course Course Orders, Labs, Meds: Orders Category Date Time Status PRBC Transfusion [PACKED CELLS] Stat LAB 09/16/22 17:41 Ordered SARS COV-2 RNA RAPID DARIAN Stat LAB 09/16/22 Ordered D5NS BANANA BAG @ 100 ML/HR MEDS 09/16/22 18:00 Ordered Dextrose 5 % and 0.9 % NaCl [Dextrose 5%-Ns IV Solution ] 1,000 ml Mvi, Adult No.1 with Vit K [Infuvite Adult] 10 ml IV 100 mls/hr Folic Acid 1 mg MEDS 09/17/22 09:00 Ordered 0.9 % Sodium Chloride [Sodium Chloride] 50 ml IV DAILY Vitamin B-1 Inj [Thiamine] 100 mg MEDS 09/17/22 09:00 Ordered 0.9 % Sodium Chloride [Sodium Chloride] 50 ml IV DAILY Vital Signs: Temp Pulse Resp BP Pulse Ox 09/16/22 16:47 98.7 F 79 16 177/81 H 97 Discharge Plan Discharge Patient Disposition: PLACED OBSERVATION Discharge Problem: Anemia Prescriptions: No Action pantoprazole 40 mg tablet,delayed release (DR/EC) 40 mg PO BID zolpidem 10 mg tablet 10 mg PO QHS prednisone 10 mg Tablet 10 mg PO DAILY Mucinex 1,200 mg Tablet Extended Release 12hr 1,200 mg PO Q12H sucralfate [Carafate] 1 gram Tablet 1 g PO ACHS benzonatate 100 mg Capsule 100 mg PO Q8H insulin glargine [Lantus U-100 Insulin] 100 unit/mL Solution 10 unit SUBCUT BEDTIME Qty: 1 0RF prednisone 5 mg Tablet 5 mg PO DAILY Qty: 10 0RF Did you review [place] SAFETY AND SECURITY OFFICER?: Not Applicable ED Provider: MALU SPAIN Condition: Stable Physician Progress Note: []admit to hospitalist for one unit pRBC transfusion
[2022-09-16] MEDS ORDERED: TYLENOL PO PRN (17:47)
[2022-09-16] MEDS ORDERED: HUMULIN R SUBCUT PRN (17:50)
[2022-09-16] MEDS: MUCINEX PO SCH (18:00)
[2022-09-16] MEDS ORDERED: SODIUM CHLORIDE 1,000 ML IV SCH (18:00)
[2022-09-16 18:31] LABS: SARS COV-2 RNA RAPID NAAT NEGATIVE (NEGATIVE)
[2022-09-16] MEDS: CARAFATE PO SCH (21:00)
[2022-09-16] MEDS ORDERED: PROTONIX PO SCH (21:00)
[2022-09-16] MEDS ORDERED: AMBIEN PO SCH (21:00)
[2022-09-17] MEDS: INFUVITE ADULT 10 ML in DEXTROSE 5%-NS IV SOLUTION 1,000 ML IV SCH ×2 (00:57→01:28)
[2022-09-17] MEDS: TESSALON PERLES PO SCH ×2 (00:57→01:57)
[2022-09-17] MEDS ORDERED: INFUVITE ADULT IV ONE (01:20)
[2022-09-17 05:07] VITALS: BP 156/78; TEMP 98.5
[2022-09-17 05:39] LABS: BASOPHILS % (AUTO) 1.5 % (0.0-3.0); EOSINOPHILS # (AUTO) 0.1 K/ul (0.0-0.7); EOSINOPHILS % (AUTO) 1.9 % (0.0-7.0); HEMATOCRIT 21.5 % (42.0-52.0); HEMOGLOBIN 7.1 g/dl (14.0-18.0); IMMATURE GRANULOCYTE % (AUTO) 1.2 % (0.0-5.0); LYMPHOCYTES # (AUTO) 1.2 K/uL (0.60-3.4); LYMPHOCYTES % (AUTO) 45.6 (10.0-50.0); MEAN CORPUSCULAR HEMOGLOBIN 30.5 pg (27.0-31.0); MEAN CORPUSCULAR VOLUME 92.3 fl (80.0-94.0); MONOCYTES # (AUTO) 0.2 K/uL (0.4-2.0); MONOCYTES % (AUTO) 7.7 (0-10); NEUTROPHILS # (AUTO) 1.1 K/ul (2.0-6.9); NEUTROPHILS % (AUTO) 42.1 % (42.2-75.2); PLATELET COUNT 154 10^3/uL (140-440); RDW COEFFICIENT OF VARIATION 24.6 % (11.6-14.8); RED BLOOD COUNT 2.33 10^6/ul (4.70-6.10); WHITE BLOOD COUNT 2.59 K/ul (4.2-10.2)
[2022-09-17] MEDS: MUCINEX PO SCH (05:45)
[2022-09-17] MEDS: CARAFATE PO SCH ×2 (05:45→11:18)
[2022-09-17 05:57] LABS: ALANINE AMINOTRANSFERASE 12.9 U/L (0-50); ALBUMIN 2.88 g/dL (3.5-5.0); ALKALINE PHOSPHATASE 194.7 U/L (56-119); BILIRUBIN,TOTAL 1.01 mg/dL (0.2-1.3); BLOOD UREA NITROGEN 58.6 mg/dL (9-20); CALCIUM 7.62 mg/dL (8.4-10.2); CARBON DIOXIDE 20.3 mmol/L (22-30.0); CHLORIDE 114.3 mmol/L (98-107); CREATININE 2.97 mg/dL (0.60-1.10); GLUCOSE 125.4 mg/dL (74-106); POTASSIUM 4.43 mmol/L (3.5-5.1); SODIUM 140.7 mmol/L (134.5-145); TOTAL PROTEIN 6.49 g/dL (6.3-8.2)
[2022-09-17] MEDS ORDERED: PROTONIX PO SCH (07:30)
[2022-09-17] MEDS ORDERED: PREDNISONE PO SCH ×2 (08:30)
[2022-09-17] MEDS ORDERED: FOLIC ACID ONE (08:48)
[2022-09-17] MEDS ORDERED: THIAMINE 100 MG in SODIUM CHLORIDE 50 ML IV SCH (09:00)
[2022-09-17] MEDS ORDERED: FOLIC ACID 1 MG in SODIUM CHLORIDE 50 ML IV SCH (09:00)
[2022-09-17] MEDS ORDERED: FOLIC ACID PO SCH (09:00)
--- NOTE | 2022-09-17 09:43 | PCM.PROG ---
Date Seen by Provider: 09/17/22 Time Seen by Provider: 09:00 Subjective: Patient has no complaints. Objective: Vitals: T=98.5 F, P=78, R=18, RS=865/78, SPO2=97 Alert and in NAD. HEENT: [] Neck: [] Lungs: [] Clear. BS equal. CVS: [] RRR. No murmur or rub Abdomen: [] Extremities: [] Neurological: [] Skin: [] Lab/Tests/Diagnostic Imaging: [] (1) Anemia: Status: Acute Code(s): D64.9 - Anemia, unspecified SNOMED Code(s): 553249675 Assessment: Morning hemoglobin 7.1 after one UPRBCs. 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
--- NOTE | 2022-09-17 09:47 | PCM.DC ---
Final Diagnosis: anemia Physical Exam Appearance: Well-appearing, No pain distress and Well-nourished Ill-appearing: None Pain Distress: None Eyes: Not Examined ENT: Nose normal and Oropharynx normal Neck: Supple Respiratory: Airway patent, Breath sounds clear and Breath sounds equal Cardiovascular: RRR, No rub and No murmur GI/: Not Examined Musculoskeletal: Not Examined Skin: Warm, Dry and Normal color Neurological: Alert and Oriented Psychiatric: Affect appropriate and Mood appropriate (1) Anemia: Status: Acute Code(s): D64.9 - Anemia, unspecified SNOMED Code(s): 995845274 Reason for Hospitalization: anemia Prognosis/Condition at Discharge: Condition at discharge was stable. Medications at Discharge: Patient discharged on same medications that he was taking at admission. Lab/Diagnostics: Final Hgb 7.1 after one UPRBCs. Education Provided to Patient and Family: anemia Follow-ups: Patient to follow up with his rabbit dresser tomorrow. Discharge Disposition: Home Hospital Course: Patient admitted with anemia. He received one UPRBCs. Post transfusion Hgb was 7.1. Patient felt well and was discharged home on 09/17/22. Plan: Follow up with your rabbit dresser tomorrow as already scheduled.
[2022-09-17] MEDS ORDERED: TESSALON PERLES PO SCH (13:00)
[2022-09-17] MEDS ORDERED: MUCINEX PO SCH (21:00)
== END 2022-09-17 11:53 | disposition home or self-care (01) ==
LOC: ED 16:47 → MEDSURG A 16:47
PROVIDERS: ADMIT Emergency Medicine Emergency Medical Services; ATTEND Surgery
DX: D64.9 Anemia, unspecified; Z51.81 Encounter for therapeutic drug level monitoring; Z20.822 Contact with and (suspected) exposure to COVID-19; D59.10 Autoimmune hemolytic anemia, unspecified; Z79.899 Other long term (current) drug therapy; Z79.4 Long term (current) use of insulin

== ENCOUNTER 2022-09-26 11:52 | Inpatient (IN) ==
[2022-09-26 12:46] LABS: SARS COV-2 RNA RAPID NAAT NEGATIVE (NEGATIVE)
[2022-09-26] MEDS ORDERED: NITROSTAT SL PRN (13:32)
[2022-09-26] MEDS ORDERED: ATROPINE SULFATE PFS IVP PRN (13:32)
[2022-09-26 13:55] LABS: BASOPHILS % (AUTO) 0.3 % (0.0-3.0); EOSINOPHILS # (AUTO) 0.1 K/ul (0.0-0.7); LYMPHOCYTES # (AUTO) 1.7 K/uL (0.60-3.4); LYMPHOCYTES % (AUTO) 57.9 (10.0-50.0); MEAN CORPUSCULAR HEMOGLOBIN 30.3 pg (27.0-31.0); MEAN CORPUSCULAR HGB CONC 33.7 (31.8-35.4); MEAN CORPUSCULAR VOLUME 89.9 fl (80.0-94.0); MONOCYTES # (AUTO) 0.2 K/uL (0.4-2.0); MONOCYTES % (AUTO) 6.4 (0-10); NEUTROPHILS % (AUTO) 33.4 % (42.2-75.2); PLATELET COUNT 152 10^3/uL (140-440); RDW COEFFICIENT OF VARIATION 23.8 % (11.6-14.8); RED BLOOD COUNT 1.98 10^6/ul (4.70-6.10); WHITE BLOOD COUNT 2.97 K/ul (4.2-10.2)
[2022-09-26 14:00] VITALS: BMI 22.6
[2022-09-26 14:08] LABS: ALANINE AMINOTRANSFERASE 12.7 U/L (0-50); ALBUMIN 2.78 g/dL (3.5-5.0); ALKALINE PHOSPHATASE 194.7 U/L (56-119); ASPARTATE AMINO TRANSFERASE 31.8 U/L (17-59); BILIRUBIN,TOTAL 0.78 mg/dL (0.2-1.3); CARBON DIOXIDE 17.5 mmol/L (22-30.0); CHLORIDE 112.1 mmol/L (98-107); CREATINE KINASE 56.9 U/L (55-170); CREATININE 2.88 mg/dL (0.60-1.10); GLUCOSE 232.5 mg/dL (74-106); POTASSIUM 4.23 mmol/L (3.5-5.1); SODIUM 135.3 mmol/L (134.5-145); TOTAL PROTEIN 6.26 g/dL (6.3-8.2)
[2022-09-26 14:21] LABS: ANISOCYTOSIS 2+ (NOT PRESENT); HEMATOCRIT 17.8 % (42.0-52.0); POLYCHROMASIA 1+ (NOT PRESENT)
[2022-09-26 14:24] LABS: BLOOD UREA NITROGEN 62.8 mg/dL (9-20); TROPONIN I < 0.012 ng/ml (0.0000-0.120)
--- NOTE | 2022-09-26 14:52 | DI ---
EXAM: Frontal view of the chest. HISTORY: Shortness of breath COMPARISON: Chest radiograph 09/04/2022 per FINDINGS: Right atherosclerotic calcifications of the aorta. Small bilateral pleural effusions, left greater than right. Band-like atelectasis in the lung bases. Mild scarring in the right and left mid to upper lungs appear unchanged. Mild cardiomegaly. No visible pneumothorax P Multilevel spondylosis. Degenerative change of the shoulders. IMPRESSION: Small bilateral pleural effusions and adjacent atelectasis. Mild cardiomegaly. Atherosclerosis.
[2022-09-26] MEDS ORDERED: CHLORTHALIDONE PO SCH (16:30)
[2022-09-26] MEDS: LASIX TAB PO SCH (16:45)
[2022-09-26] MEDS: CARAFATE PO SCH ×2 (16:45→21:38)
[2022-09-26] MEDS: PROTONIX PO SCH ×2 (16:46→17:03)
[2022-09-26] MEDS: FOLIC ACID PO SCH (16:46)
[2022-09-26] MEDS: MUCINEX PO SCH ×2 (17:06→21:38)
[2022-09-26 17:46] LABS: ABG O2 HGB 95.5 % (95-100); ABG PH 7.39 (7.35-7.45); MetHb 1.1 (0-1.5); sO2 96.2 % (94-98); tHb 6.5 g/dl (11.7-17.4)
[2022-09-26] MEDS: AMBIEN PO PRN (21:46)
[2022-09-26] MEDS: HUMULIN R SUBCUT PRN (21:52)
[2022-09-26 23:46] LABS: HEMATOCRIT 24.1 % (42.0-52.0)
[2022-09-26 23:57] LABS: CREATINE KINASE 61.1 U/L (55-170)
[2022-09-27 00:11] LABS: TROPONIN I < 0.012 ng/ml (0.0000-0.120)
[2022-09-27 05:59] LABS: BASOPHILS % (AUTO) 0.7 % (0.0-3.0); EOSINOPHILS # (AUTO) 0.1 K/ul (0.0-0.7); HEMATOCRIT 24.4 % (42.0-52.0); IMMATURE GRANULOCYTE % (AUTO) 0.3 % (0.0-5.0); LYMPHOCYTES # (AUTO) 1.2 K/uL (0.60-3.4); LYMPHOCYTES % (AUTO) 39.9 (10.0-50.0); MEAN CORPUSCULAR HEMOGLOBIN 29.5 pg (27.0-31.0); MEAN CORPUSCULAR HGB CONC 32.8 (31.8-35.4); MONOCYTES # (AUTO) 0.2 K/uL (0.4-2.0); MONOCYTES % (AUTO) 6.5 (0-10); NEUTROPHILS # (AUTO) 1.5 K/ul (2.0-6.9); NEUTROPHILS % (AUTO) 50.6 % (42.2-75.2); PLATELET COUNT 158 10^3/uL (140-440); RED BLOOD COUNT 2.71 10^6/ul (4.70-6.10); WHITE BLOOD COUNT 2.93 K/ul (4.2-10.2)
[2022-09-27 06:13] LABS: ALBUMIN 2.75 g/dL (3.5-5.0); ALKALINE PHOSPHATASE 198.9 U/L (56-119); ASPARTATE AMINO TRANSFERASE 32.4 U/L (17-59); BILIRUBIN,TOTAL 0.9 mg/dL (0.2-1.3); CALCIUM 7.48 mg/dL (8.4-10.2); CARBON DIOXIDE 21.2 mmol/L (22-30.0); CHLORIDE 111.9 mmol/L (98-107); CREATINE KINASE 59.3 U/L (55-170); CREATININE 2.93 mg/dL (0.60-1.10); GLUCOSE 114.2 mg/dL (74-106); POTASSIUM 4.15 mmol/L (3.5-5.1); SODIUM 137.9 mmol/L (134.5-145); TOTAL PROTEIN 6.3 g/dL (6.3-8.2)
[2022-09-27 06:20] LABS: BLOOD UREA NITROGEN 64.9 mg/dL (9-20)
[2022-09-27] MEDS: LASIX TAB PO SCH (06:22)
[2022-09-27] MEDS: CARAFATE PO SCH ×4 (06:22→20:21)
[2022-09-27] MEDS: PROTONIX PO SCH ×2 (06:23→16:26)
[2022-09-27 06:38] LABS: BILIRUBIN,URINE Negative (NEGATIVE); CLARITY,URINE Clear (CLEAR); COLOR,URINE Yellow (YELLOW); GLUCOSE, URINE (UA) Negative (NEGATIVE); KETONES,URINE Negative (NEGATIVE); LEUKOCYTE ESTERASE ,URINE Negative (NEGATIVE); NITRITE,URINE Negative (NEGATIVE); PH,URINE 5.5 (5-9); PROTEIN,URINE 3+ (NEGATIVE); URINE, BLOOD 3+ (NEGATIVE); UROBILINOGEN,URINE 0.2 (0.2)
[2022-09-27 06:45] LABS: BACTERIA,URINE 1+ (NOT PRESENT); SQUAMOUS EPITHELIAL CELL,UR NOT PRESENT (0-5); URINE WBC, MICROSCOPIC 0-2 (0-2)
[2022-09-27] MEDS: HYDROCHLOROTHIAZIDE PO SCH (09:02)
[2022-09-27] MEDS: FOLIC ACID PO SCH (09:03)
[2022-09-27] MEDS: LANTUS SUBCUT SCH (09:04)
[2022-09-27] MEDS: MUCINEX PO SCH ×2 (09:04→20:21)
[2022-09-27] MEDS ORDERED: DEXTROSE 5%-1/2NS IV SOLUTION 1,000 ML IV SCH (13:00)
[2022-09-27] MEDS: HUMULIN R SUBCUT PRN (21:06)
[2022-09-27] MEDS: TYLENOL PO PRN (22:09)
[2022-09-27] MEDS: AMBIEN PO PRN (22:09)
[2022-09-28 05:27] LABS: BASOPHILS % (AUTO) 0.8 % (0.0-3.0); EOSINOPHILS # (AUTO) 0.1 K/ul (0.0-0.7); EOSINOPHILS % (AUTO) 4.9 % (0.0-7.0); HEMATOCRIT 21.1 % (42.0-52.0); IMMATURE GRANULOCYTE % (AUTO) 0.4 % (0.0-5.0); LYMPHOCYTES # (AUTO) 1.3 K/uL (0.60-3.4); LYMPHOCYTES % (AUTO) 53.7 (10.0-50.0); MEAN CORPUSCULAR HGB CONC 33.2 (31.8-35.4); MEAN CORPUSCULAR VOLUME 90.6 fl (80.0-94.0); MONOCYTES # (AUTO) 0.2 K/uL (0.4-2.0); MONOCYTES % (AUTO) 6.6 (0-10); NEUTROPHILS # (AUTO) 0.8 K/ul (2.0-6.9); NEUTROPHILS % (AUTO) 33.6 % (42.2-75.2); PLATELET COUNT 177 10^3/uL (140-440); RDW COEFFICIENT OF VARIATION 22.8 % (11.6-14.8); RED BLOOD COUNT 2.33 10^6/ul (4.70-6.10); WHITE BLOOD COUNT 2.44 K/ul (4.2-10.2)
[2022-09-28 05:42] LABS: ALANINE AMINOTRANSFERASE 11.4 U/L (0-50); ALBUMIN 2.62 g/dL (3.5-5.0); ALKALINE PHOSPHATASE 198.1 U/L (56-119); ASPARTATE AMINO TRANSFERASE 30.1 U/L (17-59); BILIRUBIN,TOTAL 0.74 mg/dL (0.2-1.3); CALCIUM 7.34 mg/dL (8.4-10.2); CARBON DIOXIDE 19.8 mmol/L (22-30.0); CHLORIDE 111.7 mmol/L (98-107); CREATINE KINASE 66.2 U/L (55-170); CREATININE 2.89 mg/dL (0.60-1.10); GLUCOSE 139.1 mg/dL (74-106); POTASSIUM 3.87 mmol/L (3.5-5.1); SODIUM 135.9 mmol/L (134.5-145); TOTAL PROTEIN 5.97 g/dL (6.3-8.2)
[2022-09-28 05:51] LABS: BLOOD UREA NITROGEN 64.1 mg/dL (9-20)
[2022-09-28] MEDS: PROTONIX PO SCH ×2 (06:01→17:27)
[2022-09-28] MEDS: LASIX TAB PO SCH (06:01)
[2022-09-28] MEDS: CARAFATE PO SCH ×4 (06:01→20:39)
[2022-09-28 06:06] LABS: ANISOCYTOSIS 1+ (NOT PRESENT); MICROCYTOSIS 1+ (NOT PRESENT)
[2022-09-28] MEDS: HYDROCHLOROTHIAZIDE PO SCH (09:06)
[2022-09-28] MEDS: FOLIC ACID PO SCH (09:07)
[2022-09-28] MEDS: MUCINEX PO SCH ×2 (09:07→20:39)
[2022-09-28] MEDS: LANTUS SUBCUT SCH (09:10)
[2022-09-28] MEDS: TYLENOL PO PRN (19:53)
[2022-09-28] MEDS: AMBIEN PO PRN (20:39)
[2022-09-29 00:17] LABS: HEMATOCRIT 25.4 % (42.0-52.0); HEMOGLOBIN 8.3 g/dl (14.0-18.0)
[2022-09-29] MEDS ORDERED: TUSSIONEX PO ONE (01:02)
[2022-09-29 05:31] LABS: HEMOGLOBIN 8.4 g/dl (14.0-18.0); MEAN CORPUSCULAR HEMOGLOBIN 30.1 pg (27.0-31.0); MEAN CORPUSCULAR HGB CONC 33.6 (31.8-35.4); MEAN CORPUSCULAR VOLUME 89.6 fl (80.0-94.0); PLATELET COUNT 178 10^3/uL (140-440); RDW COEFFICIENT OF VARIATION 21.2 % (11.6-14.8); RED BLOOD COUNT 2.79 10^6/ul (4.70-6.10)
[2022-09-29 05:46] LABS: ALANINE AMINOTRANSFERASE 11.7 U/L (0-50); ALBUMIN 2.73 g/dL (3.5-5.0); ALKALINE PHOSPHATASE 214.9 U/L (56-119); ASPARTATE AMINO TRANSFERASE 31.5 U/L (17-59); BILIRUBIN,TOTAL 0.81 mg/dL (0.2-1.3); CALCIUM 7.29 mg/dL (8.4-10.2); CARBON DIOXIDE 20.1 mmol/L (22-30.0); CHLORIDE 112.2 mmol/L (98-107); CREATINE KINASE 64.1 U/L (55-170); CREATININE 2.89 mg/dL (0.60-1.10); GLUCOSE 146.4 mg/dL (74-106); POTASSIUM 3.98 mmol/L (3.5-5.1); SODIUM 136.4 mmol/L (134.5-145); TOTAL PROTEIN 6.2 g/dL (6.3-8.2)
[2022-09-29 05:49] LABS: ANISOCYTOSIS NOT PRESENT (NOT PRESENT)
[2022-09-29 05:53] LABS: BLOOD UREA NITROGEN 62.4 mg/dL (9-20)
[2022-09-29] MEDS: PROTONIX PO SCH (05:57)
[2022-09-29] MEDS: CARAFATE PO SCH ×2 (05:57→12:13)
[2022-09-29] MEDS: LASIX TAB PO SCH (05:57)
--- NOTE | 2022-09-29 09:34 | PCM.PROG ---
Attending Provider: ATTENDING PROVIDER: Dr. PADMINI RODRIGUES MD This patient is seen with Ledy Palma, Nurse Practitioner. DATE OF SERVICE: 09/29/22 SUBJECTIVE: This 82 year old M was hospitalized 09/26/22. The patient is resting comfortably. Kidney functions stable. He received 1 unit yesterday. Hemoglobin is stable at 8.4. He is eating well. REVIEW OF SYSTEMS: CONSTITUTIONAL: Weakness. No night sweats. No fatigue, malaise, lethargy. No fever or chills. HEENT: Eyes: No visual changes. No eye pain. No eye discharge. ENT: No runny nose. No epistaxis. No sinus pain. No odynophagia. No congestion. RESPIRATORY: No cough, no congestion. No hemoptysis. Shortness of breath. CARDIOVASCULAR: No angina symptoms. No CHF symptoms. No atypical chest pain for CAD. No palpitations. No orthopnea.. GASTROINTESTINAL: No abdominal pain. No nausea or vomiting. No diarrhea or constipation. No hematemesis. No hematochezia. GENITOURINARY: No urgency. No frequency. No dysuria. No hematuria. No obstructive symptoms. No discharge. No pain. No significant abnormal bleeding. MUSCULOSKELETAL: No musculoskeletal pain; no joint swelling. NEUROLOGICAL: Awake, alert, oriented to time, place and person. No headache. No neck pain. No syncope. No seizures. No dizziness. PSYCHIATRIC: Not anxious. No depression. No suicidal thoughts. No homicidal thoughts. SKIN: No rash. No lesions. No wounds. ENDOCRINE: No unexplained weight loss. No weight gain. HEMATOLOGIC/LYMPHATIC: No anemia. No purpura. No petechiae. No prolonged or excessive bleeding. No palpable lymph nodes. PHYSICAL EXAMINATION: GENERAL: The patient is awake, alert and oriented, lying/sitting in bed in no distress. VITAL SIGNS: Temperature 97.7 F, Pulse 75, Respiratory Rate 18, BP 176/68, Pulse Ox 99% HEENT: Head normocephalic, atraumatic. Eyes: Extraocular muscles are intact. Pupils are equal, round and reactive to light and accommodation. Ears: No lesions. Nose appeared normal. Throat: No exudate or erythema. NECK: Supple. No JVD, no carotid bruit. No lymphadenopathy or thyromegaly. LUNGS: Diminished breath sounds. Clear to auscultation. Percussion note normal. Chest symmetrical. HEART: S1, S2, no S3. No murmurs. No cyanosis or clubbing. No ascites. Pulses: Dorsalis pedis and posterior tibial pulses +1 to +2 both sides. ABDOMEN: Soft. Non-tender. Bowel sounds active. No CVA tenderness. No mass felt. EXTREMITIES: 2+ bilateral lower extremity edema. Full range of motion of all extremities, equal. NEUROLOGIC: No focal deficit. Cranial nerves II through XII are grossly intact. No headache. No double vision. SKIN: Not dry. Intact. Turgor-normal. LYMPHATIC: No palpable lymph nodes/no lymphedema. MUSCULOSKELETAL: Normal joints with no swelling. Muscle tone is normal. LAB REVIEW: 09/29/22 05:02 09/29/22 05:02 09/29/22 05:02: Sodium 136.4, Potassium 3.98, Chloride 112.2 H, Carbon Dioxide 20.1 L, Anion Gap 8.08, BUN 62.4 H*, Creatinine 2.89 H, Estimated GFR (MDRD) 21.00, BUN/Creatinine Ratio 21.59, Glucose 146.4 H, Calcium 7.29 L, Total Bilirubin 0.81, AST 31.5, ALT 11.7, Alkaline Phosphatase 214.9 H, Total Creatine Kinase 64.1, Total Protein 6.20 L, Albumin 2.73 L, Globulin 3.47, Albumin/Globulin Ratio 0.78 09/29/22 05:02: WBC 2.40 L, RBC 2.79 L, Hgb 8.4 L, Hct 25.0 L, MCV 89.6, MCH 30.1, MCHC 33.6, RDW Coeff of Liza 21.2 H, Plt Count 178, Neutrophils % (Manual) 47.0, Lymphocytes % (Manual) 42.0, Monocytes % (Manual) 4.0, Eosinophils % (Manual) 7.0 H, Anisocytosis Not present 09/29/22 00:15: Hgb 8.3 L, Hct 25.4 L 09/26/22 14:20: Blood Type B POSITIVE, Antibody Screen Negative, Crossmatch (A HG) See Detail ASSESSMENT: Please see below. 1. Symptomatic anemia. 2. Renal azotemia. 3. Questionable underlying hemolytic anemia vs smoldering myeloma. 4. Hypertension. 5. Diabetes mellitus type 2. PLAN: 1. DC Hydrochlorothiazide. Plan and coordination of the patient's care discussed in the presence of Manufacturing Worker and nurse. CONDITION: Stable SCRIBED BY: SLADE METCALF Commercial Baking Teacher scribed while in presence of service performed by Dr. Rodrigues/Ledy Palma APRN on 09/29/22 (1521)
[2022-09-29] MEDS: FOLIC ACID PO SCH (09:46)
[2022-09-29] MEDS: MUCINEX PO SCH (09:46)
[2022-09-29] MEDS: LANTUS SUBCUT SCH (09:46)
[2022-09-29 14:28] VITALS: BP 142/84; TEMP 97.2
--- NOTE | 2022-09-29 15:44 | HP ---
DATE OF SERVICE: 09/26/22 REASON FOR HOSPITALIZATION/HISTORY OF PRESENT ILLNESS: 82-year-old malewas on commode straining two days ago and had jaw pain, short of breath with tachycardia (rate 130/min). It subsided soon, took 10 minutes. No sweating. No symptoms of CHF or Covid. He was seen by Ambulance Driver Paramedic today at [facility]. The patient was put on 02 at /DE. Today at [facility] Troponin mildly elevated. CK-MB Normal. PAST MEDICAL HISTORY: Anemia COPD CKD 3/4 PAST SURGICAL HISTORY: Colonoscopy Cystoscopy History of biopsy REVIEW OF SYSTEMS: CONSTITUTIONAL: No fever, no fatigue. HEENT: No sinus drainage, no sore throat. RESPIRATORY: No cough, no congestion. CARDIOVASCULAR: Angina?? Shortness of breath. No atypical chest pain for coronary artery disease. No CHF symptoms, palpitations. GASTROINTESTINAL: No melena or abdominal pain. No GERD. GENITOURINARY: No hematuria, no prostatism, no polyuria. COLD WATER MACHINE OPERATOR: No blackout, no dizziness, no headache, no double vision. MUSCULOSKELETAL: No osteoarthritis pain, no joint swelling. ENDOCRINE: No weight loss, no weight gain. SKIN: Not dry, no rash. PSYCHIATRIC: Anxious. No depression, no suicidal thoughts, no homicidal thoughts. SOCIAL HISTORY: Marital Status: . Lives with . 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 Tobacco Usage: No. FAMILY HISTORY: Father . Mother . MEDICATIONS: Furosemide 40 mg daily Chlorthiazide 25 mg 1/2 tab daily Folic Acid 1 mg daily Pantoprazole 40 mg daily Ambien 5 mg p.r.n. Carafate liquid q.i.d. Quafenesin 600 b.i.d. Insulin Glargine 15 initially Mucinex p.r.n. ALLERGIES: STATINS, METFORMIN (DIARRHEA), MOXIFLOXACIN (METABISULFITE) PHYSICAL EXAMINATION: V/S: Pulse 78, BP 142/68, Temperature 97.9, 02 sat 98%. Height 5'6". GENERAL APPEARANCE: Oriented times three. HEENT: Normal. NECK: No JVP, no bruits. RESPIRATORY: Lungs are clear. CARDIOVASCULAR: S1, S2, no S3, no murmur. No cyanosis, clubbing. No ascites. GI/ABDOMEN: No tenderness. Bowel sounds are active. EXTREMITIES: +1 to +2 pitting edema, pulses +1, equal. COLD WATER MACHINE OPERATOR: Deep tendon reflexes, sensory, motor and gait all normal. RECTAL/PROSTATE: 2020 Martinez. ASSESSMENT: 1. Severe anemia, hemoglobin and hematocrit 6.8 and 19. Ambulance Driver Paramedic at [facility] wants him transfused. 2. Jaw pain - angina equivalent two days ago. 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 4. Diabetes mellitus Type 2. 5. Nephrotic syndrome. 6. COPD/bronchiectasis/pulmonary hypertension. 7. History of diastolic CHF. 8. CKD 3/4, Dr. Barney. 9. History of pneumonitis. 10. Hypertension. 11. 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 PLAN: 1. Admit. 2. Elevate legs. 3. Weigh daily. 4. Routine telemetry orders. 5. TSH, T4, CK-MB daily times three days. 6. Type and crossmatch 2 units of packed red cells, transfuse one unit. 7. A1C. 8. Continue all medications. 9. ABG. 10. Oxygen 2L/cannula/min. 11. Echocardiogram. TIME SPENT: More than 70 minutes. MTDD
--- NOTE | 2022-09-30 06:49 | PN ---
DATE OF SERVICE: 09/27/22 SUBJECTIVE: 82-year-old male, Japanese, hospitalized with anemia and angina which happened a couple of days ago lasting for 10 minutes while he was on the commode. REVIEW OF SYSTEMS: CONSTITUTIONAL: Fatigue. No night sweats. No malaise, lethargy. No fever or chills. HEENT: Eyes: No visual changes. No eye pain. No eye discharge. ENT: No runny nose. No epistaxis. No sinus pain. No sore throat. No odynophagia. No congestion. RESPIRATORY: No cough, no congestion. No hemoptysis. No shortness of breath. CARDIOVASCULAR: No angina symptoms. No CHF symptoms. No atypical chest pain for CAD. No palpitations. No PND. No orthopnea. GASTROINTESTINAL: Appetite seems to be improving. No abdominal pain. No nausea or vomiting. No diarrhea or constipation. No hematemesis. No hematochezia. GENITOURINARY: No urgency. No frequency. No dysuria. No hematuria. No obstructive symptoms. No discharge. No pain. No significant abnormal bleeding. MUSCULOSKELETAL: No musculoskeletal pain; no joint swelling. NEUROLOGICAL: No headache. No neck pain. No syncope. No seizures. No dizziness. PSYCHIATRIC: Not anxious. No depression. No suicidal thoughts. No homicidal thoughts. SKIN: No rash. No lesions. No wounds. ENDOCRINE: No unexplained weight loss. No weight gain. HEMATOLOGIC/LYMPHATIC: No anemia. No purpura. No petechiae. No prolonged or excessive bleeding. No palpable lymph nodes. PHYSICAL EXAMINATION: VITAL SIGNS: Temperature 98.1, pulse 80, respiratory rate 18, BP 166/75, pulse ox 98%. HEENT: Head normocephalic, atraumatic. Eyes: Extraocular muscles are intact. Pupils are equal, round and reactive to light and accommodation. Ears: No lesions. Nose appeared normal. Throat: No exudate or erythema. NECK: Supple. No JVD, no carotid bruit. No lymphadenopathy or thyromegaly. LUNGS: Decreased breath sounds but clear to auscultation. Percussion note normal. Chest symmetrical. HEART: S1, S2, no S3. No murmurs. No cyanosis or clubbing. No ascites. Pulses: Dorsalis pedis and posterior tibial pulses +1 to +2 bilaterally. ABDOMEN: Soft. Nontender. Bowel sounds active. No CVA tenderness. No mass felt. EXTREMITIES: Trace edema. Full range of motion of all extremities, equal. NEUROLOGIC: No focal deficit. Cranial nerves II through XII are grossly intact. No headache. No double vision. SKIN: Not dry. Intact. Turgor - normal. LYMPHATIC: No palpable lymph nodes/no lymphedema. MUSCULOSKELETAL: Normal joints with no swelling. Muscle tone is normal. ASSESSMENT: 1. Severe anemia requiring blood transfusion. The patient was symptomatic. Hemoglobin is 8, hematocrit 24, WBC 12,900 with normal differential. 2. Renal failure, creatinine 2.9, BUN 64 today with slight improvement in GFR. 3. Hemolytic anemia, Ophelia negative. PLAN: 1. CBC, CMP. 2. IV fluids to be given today 1000 cc D5 1/2 NS at rate of 60 cc/hr. Watch for fluid overload. 3. Will do echo in the a.m. The patient had troponin which was elevated at [facility] yesterday. Cardiac markers are negative today. The patient has sinus rhythm. Two EKGs unchanged with no acute changes. Cardiovascular status stable. The patient is stable. TIME SPENT: More than 30 minutes. Plan and coordination of the patient's care discussed in the presence of nurse. KENNETH
--- NOTE | 2022-09-30 07:40 | ECHO2D ---
Date of Exam: 09/28/2022 Ordering Physician: DR. PADMINI RODRGIUES Room #: 106 Reason for Echo: SOB, CHF, CHEST PAIN, ANGINA M-Mode Normal Adult Results LV Dimensions Normal Adult Results AoV Opening excursions >1.6 >1.6 LVEDD-base- 3.5-5.8 4.1 Ao root dimensions 2.0-3.7 3.3 LVESD-base- 3.1-4.6 L. Atrium dimensions 1.9-3.8 4.1 Post. Wall thickness 0.8-1.1 1.2 IV septum (thickness) 0.7-1.2 1.3 Post. Wall excursion 0.72-1.3 NORMAL Septal motion NORMAL Systolic motion R. Ventricular cavity 1.5-2.0 NORMAL LVEF 60% 68% Paradoxical septal wall motion NORMAL 2-D : 2-D M Mode Echocardiogram was performed using apical four chamber and left parasternal long and short axis views. Mitral, tricuspid and aortic valves appear to be normal. Contractility of the left ventricle seems to be normal, so is the cavity size. ENLARGED LEFT ATRIAL CAVITY SIZE. Aortic root appears to be normal. MILD TO MODERATE PERICARDIAL EFFUSION. There is no thrombus noted in the left ventricle or left atrial cavity. COLOR FLOW: MODERATE / SEVERE TRICUSPID REGURGITATION M-MODE: MV: NORMAL AV: NORMAL TV: NORMAL PV: CHAMBER SIZE: ENLARGED LEFT ATRIAL CAVITY WALL MOTION: NORMAL PERICARDIUM: MILD TO MODERATE PERICARDIAL EFFUSION (1 TO 1.5 CM) SIZE SEPARATION INTERPRETATION: 1. LEFT VENTRICLE HYPERTROPHY WITH ENLARGED LEFT ATRIAL CAVITY 2. NORMAL LEFT VENTRICLE SIZE AND LEFT VENTRICLE CONTRACTILITY 3. NORMAL VALVES 4. MILD TO MODERATE PERICARDIAL EFFUSION UNCHANGED 06/2022 ECHO MTDD
--- NOTE | 2022-09-30 10:06 | PN ---
DATE OF SERVICE: 09/28/22 SUBJECTIVE: 81-year-old Senegalese male hospitalized with symptomatic anemia, also angina equivalent pain. The patient has no chest pain, no GI pain while in the hospital. REVIEW OF SYSTEMS: CONSTITUTIONAL: Weakness, fatigue. No night sweats. No malaise, lethargy. No fever or chills. HEENT: Eyes: No visual changes. No eye pain. No eye discharge. ENT: No runny nose. No epistaxis. No sinus pain. No sore throat. No odynophagia. No congestion. RESPIRATORY: No cough, no congestion. No hemoptysis. No shortness of breath. CARDIOVASCULAR: No angina symptoms. No CHF symptoms. No atypical chest pain for CAD. No palpitations. No PND. No orthopnea. GASTROINTESTINAL: No abdominal pain. No nausea or vomiting. No diarrhea or constipation. No hematemesis. No hematochezia. GENITOURINARY: No urgency. No frequency. No dysuria. No hematuria. No obstructive symptoms. No discharge. No pain. No significant abnormal bleeding. MUSCULOSKELETAL: No musculoskeletal pain; no joint swelling. NEUROLOGICAL: Insomnia is present. No headache. No neck pain. No syncope. No seizures. No dizziness. PSYCHIATRIC: Not anxious. No depression. No suicidal thoughts. No homicidal thoughts. SKIN: No rash. No lesions. No wounds. ENDOCRINE: No unexplained weight loss. No weight gain. HEMATOLOGIC/LYMPHATIC: No anemia. No purpura. No petechiae. No prolonged or excessive bleeding. No palpable lymph nodes. PHYSICAL EXAMINATION: GENERAL: The patient is oriented to time, place and person, somewhat pale. VITAL SIGNS: Temperature 98.4, pulse 80, respiratory rate 15, BP 130/70, pulse ox 94% on room air. HEENT: Head normocephalic, atraumatic. Eyes: Extraocular muscles are intact. Pupils are equal, round and reactive to light and accommodation. Ears: No lesions. Nose appeared normal. Throat: No exudate or erythema. NECK: Supple. No JVD, no carotid bruit. No lymphadenopathy or thyromegaly. LUNGS: Decreased breath sounds with dry crepitations. Clear to auscultation. Percussion note normal. Chest symmetrical. HEART: S1, S2, no S3. No murmurs. No cyanosis or clubbing. No ascites. Pulses: Dorsalis pedis and posterior tibial pulses +1 to +2 bilaterally. ABDOMEN: Soft. Nontender. Bowel sounds active. No ascites. No CVA tenderness. No mass felt. EXTREMITIES: +1 pitting edema. Full range of motion of all extremities, equal. NEUROLOGIC: No focal deficit. Cranial nerves II through XII are grossly intact. No headache. No double vision. SKIN: Not dry. Intact. Turgor - normal. LYMPHATIC: No palpable lymph nodes/no lymphedema. MUSCULOSKELETAL: Normal joints with no swelling. Muscle tone is normal. LABS: Hemoglobin 7, hematocrit 22, creatinine 2.9. ASSESSMENT: 1. Symptomatic anemia - got 1 unit of PRBC. The patient was given 1000 cc D5 1/2 NS. With hemidilution the hemoglobin dropped 7. Given one unit of packed red cells. The patient is still fatigued, tired, failure to thrive. 2. Renal failure seems to be somewhat better with hydration. 3. Autoimmune hemolytic anemia. The patient will be started on chemotherapy from Thursday. Echocardiogram was done this morning and showed LVH, LV contractility, mild pericardial effusion separation from pericardium, myocardium 1 cm. No evidence of compromise of LV/RV function. PLAN: 1. As mentioned above 1 unit of packed red cells. 2. Elevate the legs. 3. Monitor kidney function. 4. Possibility of discharge tomorrow. TIME SPENT: More than 30 minutes. Plan and coordination of the patient's care discussed in the presence of nurse. KENNETH
--- NOTE | 2022-10-02 10:29 | DS ---
DATE OF SERVICE: 09/29/22 FINAL DIAGNOSIS: 1. Symptomatic anemia. 2. Generalized weakness. 3. Hypoproteinemia. 4. Diabetic nephropathy. 5. Chronic renal failure. 6. Chronic leg edema. 7. Diabetes mellitus Type 2. 8. Hypertension. DISCHARGE INSTRUCTIONS: Followup appointment in our office in one week. MEDICATIONS AT DISCHARGE: Pantoprazole 40 mg p.o. b.i.d. Zolpidem 5 mg p.o. bedtime p.r.n. sleep Mucinex 1,200 mg tablet extended release 12hr 600 mg p.o. q.12h Sucralfate (Carafate) 1 gm p.o. a.c. h.s. Folic acid 1 mg p.o. daily Chlorthalidone 12.5 mg p.o. daily Lasix 20 mg p.o. daily Insulin Glargine (Lantus U-100 insulin) 15 unit subcut daily NEW PRESCRIPTIONS: None DISCONTINUED MEDICATIONS: None DIET INSTRUCTIONS: Continue regular diet as tolerated. ACTIVITY: As tolerated by patient. SMOKING: None DISEASE SPECIFIC EDUCATION: Followup Medications Diet Activity HOSPITAL COURSE: 82-year-old male, who was admitted with acute anemia with hemoglobin of 6.9. He was transfused a total of 2 units packed red blood cells (PRBC). He has significant leg edema due to combination of diabetic nephropathy and malnutrition. He was given IV Lasix with no improvement. Recently kidney function steadily declined, baseline creatinine 2.6. He is seeing nephrology both at [facility] and at [facility]. He was given 1L of IV fluids with no improvement in renal function. Currently still not undergoing treatment for hemolytic anemia vs multiple myeloma vs amyloidosis. The plan is for an upcoming renal biopsy at [facility] to further evaluate for amyloidosis. After receiving blood, hemoglobin went up to 8.4 then 8.9 the following day. He reported significant improvement in shortness of breath and is now back to baseline. He was ready for discharge home. Will followup with us in the office next week. The patient is to resume Home Health with [facility]. Also, at this time, declines additional Help at Home services. He states he will find private health at home. TIME SPENT: More than 60 minutes. KENNETH
--- NOTE | 2022-10-02 11:41 | PN ---
DATE OF SERVICE: 09/29/22 SUBJECTIVE: 82-year-old male hospitalized with symptomatic anemia which was 6.8 with hematocrit of 19. The patient also had angina equivalent type of pain two days prior. The patient was seen and examined in [facility] Emergency Room and was discharged. He ended up in the office at the time hemoglobin was noted to be 6.8. He was strongly advised to be hospitalized in which he agreed. His hemoglobin now is 8, hematocrit 24 and suspect GI bleed. The patient has Ophelia negative, autoimmune hemolytic anemia for which he is going to be undergoing chemotherapy the next few days. The patient's cardiovascular and respiratory status is stable. The patient had an echocardiogram done which showed normal LV contractility, LVH with enlarged LA cavity and mild to moderate pericardial effusion the same as before with no evidence of any tamponade. Condition stable at time of discharge. The patient's prognosis is guarded. Of note, the patient was given two units of Packed Red Cells during the stay in the hospital. The patient was seen and examined with the nurse practitioner. TIME SPENT: More than 30 minutes. Plan and coordination of the patient's care discussed in the presence of nurse. KENNETH
--- NOTE | 2022-10-02 11:43 | PN ---
CODING FOR BILLING 09/26/22 ADMISSION DAY LEVEL 5 09/27/22 INTERMEDIATE 09/28/22 INTERMEDIATE 09/29/22 FINAL DAY "D" IN DISCHARGE MTDD
== END 2022-09-29 15:45 | disposition home or self-care (01) | DRG 809 ==
LOC: LAB 11:52 → MEDSURG A 13:18
PROVIDERS: ADMIT Internal Medicine; ATTEND Internal Medicine